=== PATIENT | female | born 1970 | race Caucasian/White ===

== ENCOUNTER 2018-03-25 15:21 | Inpatient (IN) | payer OTHER ==
[~2018-03-25] VITALS: Ht 157.5 cm; Wt 66.2 kg
[~2018-03-25 15:21] MED LIST: ECO81 PO; GLU500 PO; LIPI10 PO; PRI20 PO; ZES10 PO
[2018-03-25 15:44] VITALS: Ht 157.5 cm; Wt 66.2 kg
[2018-03-25 18:03] LABS: UA SPECIFIC GRAVITY 1.025 (1.005-1.035); microscopic required? YES; urine erythrocyte 3+ (NEGATIVE)
[2018-03-25 18:22] LABS: CALCIUM 9.2 mg/dL (8.5-10.1); CARBON DIOXIDE 24.6 mmol/L (21-32); CREATININE SERUM 1.8 mg/dL (0.6-1.0); POTASSIUM SERUM 4.2 mmol/L (3.5-5.1)
[2018-03-25 18:26] LABS: BILIRUBIN TOTAL 0.5 mg/dL (0.20-1.00)
[2018-03-25 18:27] LABS: ALBUMIN 2.3 g/dL (3.4-5.0); TOTAL PROTEIN, SERUM 9.4 g/dL (6.4-8.2)
[2018-03-25 18:30] LABS: BASOPHIL % 0.1 % (0-2)
[2018-03-25 18:30] LABS: AMPHETAMINE QUAL UR POSITIVE (See below)
[2018-03-25 18:41] LABS: PLATELET COUNT 530 x10^3mcL (130-400)
[2018-03-25 19:25] LABS: MAGNESIUM 1.9 mg/dL (1.8-2.4); PHOSPHOROUS 5.4 mg/dL (2.5-4.9)
[2018-03-25 20:51] VITALS: BP 150/83
[2018-03-26 05:53] VITALS: BP 150/78
[2018-03-26 06:16] LABS: BASOPHIL % 0.8 % (0-2)
[2018-03-26 06:23] LABS: CARBON DIOXIDE 26.7 mmol/L (21-32); CREATININE SERUM 1.7 mg/dL (0.6-1.0); MAGNESIUM 1.9 mg/dL (1.8-2.4); PHOSPHOROUS 4.9 mg/dL (2.5-4.9); POTASSIUM SERUM 4.6 mmol/L (3.5-5.1)
[2018-03-26 07:45] LABS: PLATELET COUNT 447 x10^3mcL (130-400); RED CELL DISTRIBUTION WIDTH 17.5 % (11.5-14.5)
[2018-03-26 08:03] VITALS: BP 136/61
[2018-03-26 11:52] VITALS: BP 128/66
[2018-03-26 16:07] VITALS: BP 148/78
[2018-03-26 20:41] VITALS: BP 152/75
[2018-03-27 05:32] VITALS: BP 147/72
[2018-03-27 05:58] LABS: BASOPHIL % 0.6 % (0-2); PLATELET COUNT 392 x10^3mcL (130-400)
[2018-03-27 06:30] LABS: CALCIUM 7.9 mg/dL (8.5-10.1); CARBON DIOXIDE 22.8 mmol/L (21-32); CREATININE SERUM 1.7 mg/dL (0.6-1.0); PHOSPHOROUS 4.1 mg/dL (2.5-4.9); POTASSIUM SERUM 4.5 mmol/L (3.5-5.1)
[2018-03-27 06:41] LABS: RED CELL DISTRIBUTION WIDTH 17.6 % (11.5-14.5)
[2018-03-27 08:58] VITALS: BP 164/80
[2018-03-27 13:22] VITALS: BP 152/83
[2018-03-27] MEDS ORDERED: NOR5 PO (14:52)
[2018-03-27] MEDS ORDERED: ISOSORBIDE MONO30 MG PO (14:52)
[2018-03-27] MEDS ORDERED: ZESTRIL5 MG PO (14:53)
[2018-03-27] MEDS ORDERED: GLU500 PO (14:56)
[2018-03-27 15:05] VITALS: BP 152/83
[2018-03-27 16:02] VITALS: BP 119/59
== END 2018-03-27 16:21 | disposition home or self-care (01) | DRG 812 ==
LOC: ED 15:21 → DU 18:53
PROVIDERS: Emergency Medicine; ADMIT Family Medicine
DX: T43.621A Poisoning by amphetamines, accidental (unintentional), initial encounter (principal); I21.A1 Myocardial infarction type 2; N17.0 Acute kidney failure with tubular necrosis; E43 Unspecified severe protein-calorie malnutrition; G92 Toxic encephalopathy; K70.10 Alcoholic hepatitis without ascites; E83.39 Other disorders of phosphorus metabolism; I08.1 Rheumatic disorders of both mitral and tricuspid valves; E11.22 Type 2 diabetes mellitus with diabetic chronic kidney disease; I20.0 Unstable angina; F15.10 Other stimulant abuse, uncomplicated; F10.20 Alcohol dependence, uncomplicated; E78.00 Pure hypercholesterolemia, unspecified; E11.65 Type 2 diabetes mellitus with hyperglycemia; E87.1 Hypo-osmolality and hyponatremia; N18.3 Chronic kidney disease, stage 3 (moderate); E11.40 Type 2 diabetes mellitus with diabetic neuropathy, unspecified; E11.621 Type 2 diabetes mellitus with foot ulcer; L97.529 Non-pressure chronic ulcer of other part of left foot with unspecified severity; E11.51 Type 2 diabetes mellitus with diabetic peripheral angiopathy without gangrene; H54.40 Blindness, one eye, unspecified eye; E78.5 Hyperlipidemia, unspecified; F41.9 Anxiety disorder, unspecified; F32.9 Major depressive disorder, single episode, unspecified; G89.4 Chronic pain syndrome; I12.9 Hypertensive chronic kidney disease with stage 1 through stage 4 chronic kidney disease, or unspecified chronic kidney disease; F17.210 Nicotine dependence, cigarettes, uncomplicated; Z68.27 Body mass index [BMI] 27.0-27.9, adult; Y92.018 Other place in single-family (private) house as the place of occurrence of the external cause; Z79.84 Long term (current) use of oral hypoglycemic drugs; Z89.412 Acquired absence of left great toe; Z88.5 Allergy status to narcotic agent; Z90.49 Acquired absence of other specified parts of digestive tract; Z91.14 Patient's other noncompliance with medication regimen
CPT/HCPCS: 82962; 83880; 99406; A9500; G0480; J1650; J1885; J2060; J2405; J2765; J2785; J3490; J7030; Q0092

== ENCOUNTER 2018-07-16 22:44 | Inpatient (IN) | payer OTHER ==
[~2018-07-16] VITALS: Ht 157.5 cm; Wt 79.4 kg
[~2018-07-16 22:44] MED LIST changes: +ISOSORBIDE MONO30 MG PO; +NOR5 PO; +ZESTRIL5 MG PO
--- NOTE | 2018-07-16 23:02 | NUR ---
PATIENT WAS BROUGHT IN BY EMS WITH COMPLAINT OF SUDDEN ONSET OF SOB. PATIENT HAD LEFT FOOT AMPUTATION , IS IN REHAB AND IS ON ANTIBIOTIC TX FOR PNEUMONIA. HIATORY OF HTN AND DM. ELEVATED BP IN THE FIELD AND REPORT OF LOW SATURATION ON ROOM AIR. PATIENT SEE WITH 98% SATURATION ON 100% NRM. BLOOD PRESSURE IS HIGH. PATIENT EXPRESS SHE JUST NEED SOMETHING TO 'CALM" HER DOWN REPORTS SHE USUALLY NETTA ATIVAN. PATIENT SEEN IN NO ACUTE DISTRESS, IS CALM AND COOPERATIVE. PATIENT IS WAITING FOR MD EVALUATION.
[2018-07-16 23:58] LABS: CALCIUM 8.7 mg/dL (8.5-10.1); CARBON DIOXIDE 26.7 mmol/L (21-32); CREATININE SERUM 1.8 mg/dL (0.6-1.0)
[2018-07-17] VITALS (7 sets, daily range): BP systolic 115–162; BP diastolic 64–83
[2018-07-17 00:04] LABS: BASOPHIL % 0.8 % (0-2); BILIRUBIN TOTAL 0.7 mg/dL (0.20-1.00); PLATELET COUNT 314 x10^3mcL (130-400)
[2018-07-17 00:07] LABS: RED CELL DISTRIBUTION WIDTH 15.6 % (11.5-14.5)
[2018-07-17 00:14] LABS: TOTAL PROTEIN, SERUM 8.8 g/dL (6.4-8.2)
--- NOTE | 2018-07-17 01:37 | NUR ---
PATIENT MEDICATED WITH LASIX AND NITRO PASTE.
--- NOTE | 2018-07-17 01:38 | NUR ---
PATIENT ASKING FOR FOOD AND SOMETHING TO RELAX HER. OXYGEN DROP TO THE 80'S ON ROOM AIR.
--- NOTE | 2018-07-17 02:26 | NUR ---
PATIENT MEDICATED WITH LABETALOL, TENORMIN AND ATIVAN.
--- NOTE | 2018-07-17 02:28 | NUR ---
REPORT WAS GIVEN TO ARELIS.PATIENT WILL BE TRANSPORTED TO ROOM 220.
--- NOTE | 2018-07-17 02:47 | NUR ---
PT TRANSPORTED TO [facility] VIA [facility] ON CM BY SELENA CARRERO AND XOCHITL EMT. PT IN NAD
--- NOTE | 2018-07-17 03:00 | NUR ---
CALLED TO Pt'S ROOM DUE TO DESAT. SPO2 92% UPON MY ARRIVAL, RN INCREASED FLOW TO 15L ON N/C, RN STATES SHE RECEIVED Pt ON 4L N/C WITH Pt DESATURATING. Pt PLACED ON NRB AT THIS TIME, SPO2 94%. WILL MONITOR.
[2018-07-17 03:57] LABS: MAGNESIUM 1.9 mg/dL (1.8-2.4); PHOSPHOROUS 4.2 mg/dL (2.5-4.9)
[2018-07-17 03:59] LABS: CHOLESTEROL/HDL RATIO 2.2
--- NOTE | 2018-07-17 04:20 | NUR ---
RECEIVED PT FROM ED.ADMITTED WITH COMPLAINT OF SOB X1 DAY. A/O X4. KEPT COMFORTABLE IN BED. [address] VIA 100% NRM. SAT. 97%. LUNGS SOUNDS DIM. BILAT. SOB NOTED ON EXERTION. HOB ELEVATED. AFEBRILE AND VITAL SIGNS STABLE. PLACED ON TELE #9, READS SR, DENIES CP OR PRESSURE. S/P LT FOOT AMPUTATION, DONE JUNE 04, 2018 PER PT. STUMP DRY AND INTACT,HEALED, NO DRAINAGE NOTED. PICTURE TAKEN AND DOCUMENTED. ABD. SOFT, NON DISTENDED, BS ACTIVE, NO N/V NOTED. HL TO LT WRIST, INTACT AND PATENT. ORIENTED TO ROOM AND SURROUNDINGS. BED IN LOWEST POSITION. KEPT COMFORTABLE, CALL LIGHT WITHIN REACH. WILL CONTINUE TO MONITOR.
--- NOTE | 2018-07-17 06:08 | NUR ---
COMPLAINED OF LOWER BACK PAIN, DR BAUGH MADE AWARE, K- PAD ORDERED. K-PAD TO LOWER BACK ORDERED. AFEBRILE AND VITAL SIGNS STABLE. [address] VIA NRM, TO. WELL. NO ACUTE DISTRESS NOTED. IVF INTACT AND INFUSING ORDERED. SITE CLEAR. DUE MEDS GIVEN ORDERED, KYLE. WELL. KEPT COMFORTABLE. WILL CONTINUE TO MONITOR.
--- NOTE | 2018-07-17 06:40 | NUR ---
SHLOMO BERKOWITZ FOR ANXIETY. BOLTON CATH #16 CATH. INSERTED AND CONNECTED TO DRAINAGE BAG, YELLOW COLOR URINE NOTED. WILL CONTINUE TO MONITOR.
[2018-07-17 07:25] LABS: microscopic required? YES; urine erythrocyte 3+ (NEGATIVE)
[2018-07-17 07:37] LABS: AMPHETAMINE QUAL UR POSITIVE (See below)
--- NOTE | 2018-07-17 08:00 | NUR ---
ALERT AND ORIENTED. ON OXIMIZER 5L AND RT PROTOCOL. TELE # 9 NSR. LEFT PARTIAL FOOT AMP WITH DRY SCAB TO STUMP MARIIA. NO DRAINAGE NOTED. STERI STRIPS INTACT. ABLE TO TURN AND REPOSITION SELF IN BED. C/O CHRONIC BACK PAIN AND PAIN TO LEFT FOOT STUMP. WILL ADMIN PAIN MED ORDERED PRN. CALL LIGHT WITHIN REACH.
[2018-07-17 08:25] LABS: BASOPHIL % 0.4 % (0-2)
[2018-07-17 08:35] LABS: CALCIUM 9.8 mg/dL (8.5-10.1); CARBON DIOXIDE 19.1 mmol/L (21-32); CREATININE SERUM 2.1 mg/dL (0.6-1.0); POTASSIUM SERUM 5.1 mmol/L (3.5-5.1)
[2018-07-17 08:41] LABS: PLATELET COUNT 298 x10^3mcL (130-400); RED CELL DISTRIBUTION WIDTH 16.6 % (11.5-14.5)
--- NOTE | 2018-07-17 19:31 | NUR ---
RESTING QUIETLY. BREATHING FREELY ON RA. CONTINUES ON RT PROTOCOL,SOLUMEDROL AND ZOSYN IV. TELE # 9 NSR. VSS. CALL LIGHT WITHIN REACH.
--- NOTE | 2018-07-17 19:47 | NUR ---
RECEIVED PT FROM PREVIOUS SHIFT. AAO. TELE #9 SHOWING NSR. DENIES CP. DENIES PAIN. BREATHING E/U ON 4L NC, DENIES SOB. NO S/S ACUTE DISTRESS. IV SITE CDI, IVF INFUSING WELL, NO ERYTHEMA OR SWELLING. BOLTON CATHETER DRAINING CLEAR YELLOW URINE. CALL LIGHT WITHIN REACH. SAFETY MEASURES IN PLACE. WILL CONTINUE TO MONITOR.
--- NOTE | 2018-07-17 22:21 | NUR ---
PT SALINE-LOCKED AND TAKEN OFF UNIT FOR PROCEDURE.
--- NOTE | 2018-07-17 22:59 | NUR ---
PT BACK FROM PROCEDURE. NO S/S ACUTE DISTRESS. BREATHING E/U. RESTING IN BED COMFORTABLY. WILL CONTINUE TO MONITOR.
--- NOTE | 2018-07-18 00:12 | NUR ---
PT SCREAMING "I ACCIDENTALLY PULLED MY IV OUT IN MY SLEEP". IV TO L WRIST REMOVED, CATHETER IN PLACE. PT REFUSING TO HAVE ANOTHER PLACED AT THIS TIME. PT AGITATED AND REQUESTING BOLTON CATHETER TO BE REMOVED, PAGED DR. BAUGH.
--- NOTE | 2018-07-18 00:22 | NUR ---
WENT INTO PT ROOM TO REMOVE BOLTON CATHETER. PT REFUSED. SAYS "IN THE MORNING". ASKED PT IF OK TO REINSERT IV FOR MEDICATIONS AND ANTIBIOTICS, PT STILL REFUSES SAYS "NO! I DON'T PLAY AT NIGHT.". PT VERY AGITATED AND UNCOOPERATIVE WITH CARE AT THIS TIME. UNABLE TO REINSERT IV, REMOVE CATHETER, AND COLLECT INFLUENZA A/B SINCE PT UNWILLING COOPERATIVE. WILL CONTINUE TO MONITOR.
--- NOTE | 2018-07-18 01:50 | NUR ---
INFLUENZA A/B COLLECTED. BOLTON CATHETER REMOVED, 825CC OF CLEAR YELLOW URINE IN COLLECTION DRAINAGE BAG. PT TOLERATED WELL. NO C/O PAIN. NO S/S ACUTE DISTRESS. WILL CONTINUE TO MONITOR.
--- NOTE | 2018-07-18 05:38 | NUR ---
PT REFUSING ALL CARE AT THIS TIME. TOLD PT IMPORTANCE OF TREATMENT AND PURPOSE, PT STILL REFUSES. WHEN ATTEMPTING TO SCAN WRISTBAND FOR ACCUCHECK, PT PULLS ARM AWAY SAYS "NO.", "I DON'T WANT TO.". PT REFUSING IV INSERTION AND MEDICATIONS AT THIS TIME. CHARGE NURSE ZANDRA DUNLAP. WILL NOTIFY DR. BAUGH.
[2018-07-18 05:54] VITALS: BP 141/74
--- NOTE | 2018-07-18 06:14 | NUR ---
PT REFUSING MORNING LABS. DR. BAUGH AND DR. RIDLEY MADE AWARE.
--- NOTE | 2018-07-18 07:13 | NUR ---
BEDSIDE REPORT GIVEN TO MAGAN NGUYEN.
--- NOTE | 2018-07-18 07:33 | NUR ---
RECEIVED PATIENT WAS SLEEPING. BREATHING EVENLY. TELE#9; NSR; HR = 64. NO IV ACCESS. PATIENT REFUED ALL MEDS AND LABS AND ANY TREATMENT SINCE 6AM, WHICH DOCTORS WERE AWARE OF, PER REPORT OF NOC NURSE. LT FOOT AMPUTATED. CALL LIGHT IN REACH.
--- NOTE | 2018-07-18 08:18 | NUR ---
DR. YOUNG CAME TO SEE PATIENT. PATIENT REFUSED ANY EXAMINATIONS. STATED," IT'S TOO EARLY TO CHECK ME. I HAVE RIGHTS TO REFUSE TREATMENT NOW. IT'S A STATED LAW".
--- NOTE | 2018-07-18 09:51 | NUR ---
PATIENT REFUSED MEDS NOW. PATIENT REFUSED TO SCAN HER ARM BAND.
--- NOTE | 2018-07-18 11:28 | NUR ---
DR. URBINA WANTED TO CHECK PATIENT AND AWAKE UP PATIENT. PATIENT YELLED TO DR. URBINA AND SAID, "GET AWAY". PATIENT REFUSED MEDS AND TREATMENT. PATIENT REFUSED IV INSERTION. DR. URBINA AWARE OF.
--- NOTE | 2018-07-18 12:25 | NUR ---
BS = 503. PATIENT REFUSED REPEAT BS CHECK. 21 UNITS REGULAR INSULIN SQ GIVEN PER RISS. DR. RIDLEY NOTIFIED.
--- NOTE | 2018-07-18 12:30 | NUR ---
PATIENT WOKE UP AND WALKED TO BATHROOM ON LT HEEL STUMP. VOID VIA TOILET. ACCEPTED ORAL MEDS NOW. B/P = 171/77; P =66.
--- NOTE | 2018-07-18 13:00 | NUR ---
NEW IV INSERTED TO L HAND W/ 22G NEEDLE. C/O ANXIETY. ATIVAN 0.5MG PO GIVEN.
--- NOTE | 2018-07-18 13:37 | NUR ---
PATIENT REFUSED ECHO AT THIS TIME. WILL CHECK BACK.
[2018-07-18 14:01] VITALS: BP 171/77
[2018-07-18 17:40] VITALS: BP 139/68
--- NOTE | 2018-07-18 17:57 | NUR ---
SLEEPING MOSTLY. DENIED PAIN. HAD VOID X3 VIA BRP. IV TKO TO L HAND. ENDORSED CARE TO NOC NURSE.
--- NOTE | 2018-07-18 19:19 | NUR ---
PT RECIEVED FROM THE DAY SHIFT RN. DEE DEE IS CURRENTLY WITH THE PT AT THIS TIME. PT APPEARS TO BE AGITATED AND ANGRY AT THIS TIME. PT HAS BEEN YELLING FOR NURSE DOWN THE ESCOTO. SAFETY AND COMFORT MEASURES MAINTAINED, BED IN LOWEST POSITION, CALL LIGHT WITHIN REACH, WILL CONTINUE TO MONITOR AT THIS TIME.
[2018-07-18 21:06] VITALS: BP 136/66
--- NOTE | 2018-07-19 00:05 | NUR ---
PT IS RESTING IN BED WITH EYES CLOSED AT THIS TIME. NO S/S OF PAIN NOTED AT THIS TIME. IV INFUSING AND INTACT. SAFETY AND COMFORT MEASURES MAINTAINED, BED IN LOWEST POSITION, CALL LIGHT WITHIN REACH.
--- NOTE | 2018-07-19 03:40 | NUR ---
PT IS RESTING IN BED WITH EYES CLOSED AT THIS TIME. EARLIER IN SHIFT PT WAS AGITATED AND TEARFUL WHEN SPEAKING TO FAMILY ON THE PHONE. NO S/S OF PAIN NOTED AT THIS TIME. PT HAS BEEN AGITATED AND ANGRY AT TIMES. BUT CURRENTLY CALM AND COOEPRATIVE WITH CARE. IV INFUSING AND INTACT. SAFETY AND COMFORT MEASURES MAINTAINED, BED IN LOWEST POSITION, CALL LIGHT WITHIN REACH.
--- NOTE | 2018-07-19 05:11 | NUR ---
PT HAS SLEPT IN SHORT INTERVALS THROUGHOUT THE SHIFT. PT HAS BEEN ALERT AND ORIENTED X3, PT HAS BEEN AGITATED AND ANGRY AT TIMES. BUT IS CALM AND COOPERATIVE WITH CARE AT THIS TIME. PT IV IS INFUSING AND INTACT AT THIS TIME. NO ACUTE DISTRESS NOTE . NO S/S OF PAIN AT THIS TIME. SAFETY AND COMFORT MEASURES MAINTAINED, BED IN LOWEST POSITION, CALL LIGHT WITHIN REACH, WILL ENDORSE CONTINUITY OF CARE TO THE ONCOMING RN.
[2018-07-19 05:52] VITALS: BP 155/79
[2018-07-19 06:08] LABS: BASOPHIL % 0.1 % (0-2); PLATELET COUNT 314 x10^3mcL (130-400)
[2018-07-19 06:30] LABS: CALCIUM 8.3 mg/dL (8.5-10.1); CARBON DIOXIDE 19.9 mmol/L (21-32); CREATININE SERUM 2.8 mg/dL (0.6-1.0)
[2018-07-19 06:49] LABS: POTASSIUM SERUM 5.9 mmol/L (3.5-5.1)
--- NOTE | 2018-07-19 07:01 | NUR ---
AT 0648 RECEIVED CRITICAL RESULT- POTASIUM 5.9; BUN-82, PRINTED RESULT, HANDED OVER TO PRIMARY NURSE TO SHOW RESULT TO THE RESIDENT
--- NOTE | 2018-07-19 07:16 | NUR ---
RECEIVED REPORT FROM DIGNA CARRERO. PT SLEEPING COMFORTABLY IN BED. IV TO LT HAND IS PATENT AND INFUSING NS @ 10 ML/HR. NO REDNESS OR PAIN. TELE # [address] NO INDICATION OF CHEST PAIN. PT ON ROOM AIR. NO DISTRESS NOTED. ALL QUESTIONS AND CONCERNS ADDRESSED.
[2018-07-19 09:31] VITALS: BP 170/77
--- NOTE | 2018-07-19 10:14 | NUR ---
SPOKE WITH DR FAIRBANKS TO REQUEST D10 IVPB @250 ML/HR INSTEAD OF D50 DUE TO LACK OF D50. DR FAIRBANKS OK TO PROCEED.
--- NOTE | 2018-07-19 10:50 | NUR ---
IN TO ADMINISTER D10 IVPB AND HULUMIN 10 UNITS PER MD ORDER. PT SLEEPING COMFORTABLY IN BED.
[2018-07-19 12:30] VITALS: BP 133/60
[2018-07-19 13:02] LABS: CALCIUM 8.1 mg/dL (8.5-10.1); CARBON DIOXIDE 21.8 mmol/L (21-32); CREATININE SERUM 2.8 mg/dL (0.6-1.0)
[2018-07-19 13:27] LABS: POTASSIUM SERUM 5.7 mmol/L (3.5-5.1)
--- NOTE | 2018-07-19 13:28 | NUR ---
SPOKE WITH LOCATION ANALYST ZANE FOR OK TO SHOWER, CEPACOL, AND TO NOTIFY OF PT K+ 5.7 REDUCED FROM 5.9 AFTER D1 AND 10 UNITS INSULIN.
--- NOTE | 2018-07-19 14:37 | NUR ---
RECEIVED CALL FROM DR GE FOR STATUS UPDATE. DR GE ORDERED STRICT I&O, SODIUM BICARB TABLETS, BOLTON INITIATION, COLACE BID, BISACODYL NOW, H2O FLEET NOW, ALB TX NOW, AND REPEAT BNP @ 1700.
--- NOTE | 2018-07-19 15:45 | NUR ---
2 MINUTES AFTER ADMINISTRATTION OF FLEET ENEMA PT HAD 5 SMALL MARBLE SIZED BM AND URINATED 500 ML URINE.
--- NOTE | 2018-07-19 15:59 | NUR ---
SPOKE WITH DR GE. ORDERED THAT PT IV FLUIDS BE INCREASED AND 17 BMP BE CHANGED TO 1999.
--- NOTE | 2018-07-19 17:09 | NUR ---
IN TO CHECK BLOOD GLUCOSE. GLUCOSE IS 458 AND 470 ON RECHECK. LAN SPECIALIST ZANE NOTIFIED AND WILL ADMINISTER INSULIN.
--- NOTE | 2018-07-19 17:24 | NUR ---
SPOKE WITH DR GE TO NOTFY OF SMALL BM AND URINATION OF 500 ML. INQUIRED IF BOLTON IS STILL DESIRED. DR GE WOULD LIKE TO GO AHEAD WITH BOLTON ORDER, ALSO ORDERED 1L NS TO BE GIVEN X1 @ 50 ML/HR, AND DIET CHANGED TO RENAL.
[2018-07-19 17:28] VITALS: BP 132/51
--- NOTE | 2018-07-19 17:42 | NUR ---
PT RECEIVED A VISITOR CARRYING [employer]. NOTIFIED VISITOR THAT PATIENT IS NOT ALLOWED OUTSIDE FOOD PER DR ORDER. VISITOR VERBALIZED UNDERSTANDING.
--- NOTE | 2018-07-19 18:13 | NUR ---
BOLTON INITIATED PER MD ORDER. AREA CLEANED, LUBRICANT APPLIED, FLASH WAS SEEN, BALLOON FILLED WITH 10 ML STERILE WATER PROVIDED IN KIT, TUBING SECURED WITH STATLOCK TO RT THIGH, 350 ML CLEAR YELLOW URINE ELIMINATED.
--- NOTE | 2018-07-19 19:18 | NUR ---
RECEIVED PT FROM DAY SHIFT RN. PT IS AA&O X 4 AND ABLE TO FOLLOW COMMANDS. PT DENIES CHEST PAIN OR SOB AT THIS TIME ON 3L NC. PT IS ANXIOUS AT TIMES. THERE ARE NO USE OF ACCESSORY MUSCLES OR LABORED BREATHING ON ASSESSMENT. PT TOLERATING BOLTON WITH YELLOW URINE DRAINING. TELE MONITOR IS IN PLACE. SAFETY MEASURES ARE IN PLACE. CALL LIGHT IS WITHIN REACH. WILL CONTINUE TO MONITOR.
--- NOTE | 2018-07-19 19:28 | NUR ---
REPORT GIVEN TO KARAN CARRERO. PT SLEEPING COMFORTABLY IN BED. PT ON O2 3L NC. NO DISTRESS NOTED. IV TO LT HAND IS PATENT AND INFUSING NS @ 50 ML/HR. NO REDNESS OR PAIN. BOLTON IN PLACE DRAINING CLEAR YELLOW URINE. ALL QUESTIONS AND CONCERNS ADDRESSED. ENDORSED TO CALL DR GE WITH 20:00 BMP RESULTS.
--- NOTE | 2018-07-19 19:59 | NUR ---
ATIVAN GIVEN FOR ANXIETY WILL CONTINUE TO MONITOR.
[2018-07-19 20:25] LABS: CALCIUM 7.8 mg/dL (8.5-10.1); CARBON DIOXIDE 23.2 mmol/L (21-32); CREATININE SERUM 3.1 mg/dL (0.6-1.0); POTASSIUM SERUM 5.3 mmol/L (3.5-5.1)
--- NOTE | 2018-07-19 20:48 | NUR ---
SPOKE WITH DR EG AND INFORMED HIM OF ELEVATED POTASSIUM 5.3, LOW SODIUM 130, AND ELEVATED BUN. DR GE ORDER SODIUM RANDOM AND URINALYSIS. WILL CARRY OUT ORDERS.
[2018-07-19 21:53] VITALS: BP 119/45
[2018-07-19 22:07] LABS: microscopic required? YES; urine erythrocyte 3+ (NEGATIVE)
--- NOTE | 2018-07-19 22:09 | NUR ---
INFORMED BY RT PATIENT REFUSING BREATHING TREATMENT
--- NOTE | 2018-07-19 23:14 | NUR ---
SPOKE WITH DR GE REPORTED RESULTS OF UA AND SODIUM UA. ORDERS TO DC LASIX AND MONITOR PATIENT. WILL CARRY OUT ORDERS.
--- NOTE | 2018-07-20 05:14 | NUR ---
PT SLEPT IN SHORT INTERVALS THROUGHOUT THE NIGHT. COMPLAINTS OF PAIN IN AMPUTATION SIGHT. PT MEDICATED (SEE MAR). DENIES PAIN AT THIS TIME. NO SOB OR CHEST PAIN. NO SGINIFICANT CHANGES NOTED. BREATHING IS EVEN AND UNLABORED. SAFETY MEASURES ARE IN PLACE. CALL LIGHT IS WITHIN REACH. WILL ENDORSE TO THE DAY SHIFT RN.
[2018-07-20 05:57] VITALS: BP 134/56
[2018-07-20 07:13] LABS: PLATELET COUNT 294 x10^3mcL (130-400)
[2018-07-20 07:23] LABS: CALCIUM 7.7 mg/dL (8.5-10.1); CARBON DIOXIDE 23.3 mmol/L (21-32); CREATININE SERUM 2.7 mg/dL (0.6-1.0); PHOSPHOROUS 5.4 mg/dL (2.5-4.9); POTASSIUM SERUM 5.5 mmol/L (3.5-5.1)
[2018-07-20 07:35] LABS: BASOPHIL % 0 % (0-2); RED CELL DISTRIBUTION WIDTH 18.2 % (11.5-14.5)
[2018-07-20 08:00] VITALS: BP 155/71
--- NOTE | 2018-07-20 08:00 | NUR ---
PATIENT RECEIVED ASLEEP AND IN NO DISTRESS AT THIS TIME HER LUNGS ARE DIMINISHED BUT CLEAR AND SHE HAS BEEN ABLE TO TOLERATE DIET AND NO COMPLAINTS SOB AND NOTED THE STUMP TO THE LEFT LOWER EXTREMITY AND THE PATIENT HAS A FOOT AMPUTATION AND THE WOUND TO THE SITE IS DRY AND INTACT AT THIS TIME. PATIENT HAS IT UNCOVERED. PATIENT IS ANXIOUS AND AT TIMES EVEN [facility] STAFF. SHE HAS BEEN NOTED TO HAVE FREQUENT URINATION AND THE BOLTON WAS PLACE DAND SHE IS CALMER NOW. SHE WOULD YELL OUT ABOUT HAVING TO URINATE PRIOR. SHE DOES HAVE DIABETES OOC AND HAS BEEN ASKING FOR MORE FOOD AND HAS BEEN GETTING FOOD FROM VISITORS. REMINDED HER OF HER RESTRICTIONS. PATIENT AHS BEEN OOB AND NEEDS ASSIST TO GET TO THE RESTROOM. SHE HAS NOW REQUESTED ATIVAN. GAVE THAT AND HER OTHER MEDICATIONS ORDERED. PATIENT WANTS OATMEAL AND REQUETED FROM THE DIETARY. REMINDED ABOUT THE RESTRICTIONS SHE HAS ON HER DIET. PATIENT HAS LAST BLOOD SUGAR THIS AM AT 265 AND 9 UNITS WAS GIVEN. SHE HAS VITALS AT THIS TIME AT 98.2, 64, 20, 134/56, 97% ON ROOM AIR.
[2018-07-20 09:00] VITALS: BP 155/71
--- NOTE | 2018-07-20 09:51 | NUR ---
VERY LIMITED ECHOCARDIOGRAM DONE-PATIENT UNCOOPERATIVE
--- NOTE | 2018-07-20 12:53 | NUR ---
BLOOD SUGAR AT THIS TIME AT 207 AND GAVE 3 UNITS OF REGULAR ORDERED.
--- NOTE | 2018-07-20 12:53 | NUR ---
BLOOD SUGAR ELEVATED AND GAVE 15 UNIT OF REGULAR FOR BLOOD SUGAR OF 371 AND LISA LCONTINUE TO MONITOR.
[2018-07-20 13:13] VITALS: BP 143/62
--- NOTE | 2018-07-20 13:50 | NUR ---
SLEEPING ON AND OFF AND AGRAVATED DUE TO LESS ON HER TRAY. WHILE FAMILY WAS THERE THE STAFF INDICATED THE IMPORTANCE OF LOWER THE CARBOHYDRATE INTAKE OF FOOD HER SUGAR IS REMAINING ELEVATED. SUSPECT THE FAMILY MAY BE BRINGING IN SNACKS THE PATIENT SHOULD NOT HAVE PER HER DIET. PATIENT IS CRYING AND CARRYING ON ABOUT SHE CANT FEEL FULL AND NEEDS MORE FOOD. ADVISED HER AGAIN ABOUT THE COSTS OF NOT BEING COMPLIANT WITH HER DIET AND FLUIDS. SHE THOUGH JUST GET ANGRY. SHE HAS COMPLAINTED OF ON AND OFF THROAT SORENESS. OFFERED CEPACOL ORDERED. WILL CONTINUE TO MONITOR INDICATED.
[2018-07-20 17:18] VITALS: BP 134/55
--- NOTE | 2018-07-20 17:54 | NUR ---
PATIENT HAD SEVERAKL SOFT STOOLS AND SHE HAD BEEN CLEANSED AND THEN HAD THREE ALMOST ONE RIGHT AFTER ANOTHER. SHE WAS SCREAMING FOR ASSISTANCE EVEN THOUGH THE STAFF WAS STANDING AT BEDSIDE ATTEMPTING TO ASSIST HER IN THE PROCESS. SHE HAD TANGLED HERSELF UP PREVIOUSLY IN HER IV, NASAL CANNULA, BOLTON WELL THE BEDDING. AFTER UNTANGLING THE PATIENT AND WASTING A IVPB DUE TO DISLODGEMENT PATIENT WAS SETTLED AND A NEW PIGGYBACK WAS PLACED. INFUSING THE ZOSYN AND SO FAR NO ADVERSE REACTION NOTED. WILL CONTINUE TO MONITOR. PATIENT HAD BLOOD SUGAR IN THE 260'S AND 3 UNITS WAS GIVEN. WILL CONTINUE TO MONITOR INDICATED.
--- NOTE | 2018-07-20 19:15 | NUR ---
RECEIVED PT FROM DAY SHIFT RN. PT IS AA&O X4 AND ABLE TO FOLLOW SIMPLE COMMANDS. PT CURRENTLY RESTING IN BED AND DENIES CHEST PAIN OR SHORTNESS OF BREATH ON O2 NASAL CANNULA. PT TOLERATING WELL. THERE ARE NO USE OF ACCESSORY MUSCLES OR LABORED BREATHING ON ASSESSMENT. TELE MONITOR IS IN PLACE. SAFETY MEASURES ARE IN PLACE. CALL LIGHT IS WITHIN REACH. WILL CONTINUE TO MONITOR.
[2018-07-20 20:56] VITALS: BP 142/76
--- NOTE | 2018-07-20 22:09 | NUR ---
DILAUDID PO GIVEN FOR 9/10 PAIN IN AMPUTATION AREA
--- NOTE | 2018-07-21 05:10 | NUR ---
PT SLEPT IN SHORT INTERVALS THROUGHOUT THE NIGHT. NO COMPLAINTS OF CHEST PAIN OR SHORTNESS OF BREATH. PT CURRENTLY RESTING IN BED WITH EYES CLOSED . NO DISTRESS NOTED. NO SIGNIFICANT CHANGES NOTED. WILL ENDORSE TO DAY SHIFT RN.
[2018-07-21 05:16] VITALS: BP 156/65
[2018-07-21 07:34] LABS: BASOPHIL % 0.1 % (0-2); CALCIUM 7.6 mg/dL (8.5-10.1); CARBON DIOXIDE 22.8 mmol/L (21-32); CREATININE SERUM 2.2 mg/dL (0.6-1.0); PLATELET COUNT 331 x10^3mcL (130-400); POTASSIUM SERUM 4.7 mmol/L (3.5-5.1)
--- NOTE | 2018-07-21 07:35 | NUR ---
PT IS AAOX4. DENIES H/A OR DIZZINESS. TELE [address] READING NSR HR 61. PT HAS MILD SOB WITH LUNG SOUNDS DIMINISHED AND EXPIRATORY WHEEZED NOTED. PT IS ON 02 3LPM N/C. ABDOMEN SOFT, NONTENDER, ROUND, NONDISTENDED. BOWEL SOUNDS ACTIVE. DENIES N/V. PT HAS LEFT GOOT PARTIAL AMPUTATION WITH 7X1 CM SCAB AT INCISION SITE, MARIIA. NO S/S OF INFECTION NOTED. PT HAS RLE +1 PITTING EDEMA. IV CATH TO N/S LOCKED. SITE WNL. NO S/S OF INFECTION OR INFILTRATION. CALL PT DENIES PAIN AT THIS TIME. CALL LIGHT WITHIN REACH. BED ALARM ON.
[2018-07-21 08:02] LABS: RED CELL DISTRIBUTION WIDTH 17.7 % (11.5-14.5)
[2018-07-21 09:34] VITALS: BP 172/86
--- NOTE | 2018-07-21 10:02 | NUR ---
DUE MEDS GIVEN. HR 63, BP 177/86. PT DENIE H/A OR DIZZINESS. DENIES PAIN AT THIS TIME. PT NOTED WITH SOB AND EXPIRATORY WHEEZE. REQUESTED R/T FOR BREATHING TX. PT REFUSED BREATHING TREATMENT. WITH NO EXCUSE OFFERED. EDUCATED PT AND EXPLAINED RISK AND BENEFITS 3X. PT STILL REFUSED TX. PT EDUCATED TO SIT UP IN BED TO ACCOMODATE BREATHING. PT REFUSED. WILL CONTINUE TO MONITOR. CALL LIGHT WITHIN REACH.
--- NOTE | 2018-07-21 13:19 | NUR ---
ATIVAN 0.5 MG PO GIVEN FOR ANXIETY. PT WAS VISITING WITH FAMILY WHEN SHE STARTED TO SCREAM AT THEM AND TELL THEM TO LEAVE HER ALONE. PT REQUESTED ATIVAN AFTER THE INCIDENT. FAMILY LEFT ROOM, TV WAS TURNED OFF AND BLINDS WERE CLOSED. FLUIDS ENCOURAGED. CALL LIGHT WITHIN REACH.
[2018-07-21 13:54] VITALS: BP 156/68
--- NOTE | 2018-07-21 14:50 | NUR ---
PT IS RESTING IN BED BUT EASILY AROUSABLE. DUE MED GIVEN. R/T STATED PT WOULD ONLY TAKE HALF OF HER BREATHING TX. PT HAS AUDIBLE EXPIRATORY WHEEZE AT THIS TIME. PT REFUSED BREATHING TX. O2 SAT 95% ON 3 L N/C. WILL CONTINUE TO MONITOR.
[2018-07-21 16:54] VITALS: BP 122/74
--- NOTE | 2018-07-21 17:48 | NUR ---
PT SITTING UP AT BEDSIDE EATING DINNER. DUE MED GIVEN AND FLUIDS REPLENISHED. DENIES PAIN. RESP EVEN AND UNLABORED. TOLERATATING O2 3LPM N/C. CALL LIGHT WITHIN REACH.
--- NOTE | 2018-07-21 18:53 | NUR ---
PT IS AAOX4. RESP EVEN AND UNLABORED, SHALLOW WITH EXPIRATORY WHEEZE. PT ON 02 N/C AT 3 LPM. IV CATH N/S LOCKED TO . SITE WNL. NO S/S OF INFECTION NOTED. BOLTON CATH IN PLACE DRAINING CLEAR YELLOW URINE, PATENT. PT DENIES PAIN AT THIS TIME. CALL LIGHT WITHIN REACH. WILL ENDORSE ALL CARE TO NOC MAGAN.
[2018-07-21 19:15] VITALS: BP 165/86
--- NOTE | 2018-07-21 19:20 | NUR ---
RECEIVED PT IN BED ASLEEP BUT EASILY AROUSABLE.NO DISTRESS NOTED.DENIES PAIN AT THIS TIME. 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 IV SITE PATENT AND INTACT. BED IN LOWEST POSITION,CALL LIGHT WITHIN REACH. WILL CONTINUE TO MONITOR.
--- NOTE | 2018-07-21 21:05 | NUR ---
PT C/O BACK PAIN 10/04. MEDICATED DILAUDID PO ORDERED. WILL CONTINUE TO MONITOR.
--- NOTE | 2018-07-22 03:21 | NUR ---
PT CALLED ASKING FOR ASSISTANCE.LASER BEAM COLOR SCANNER OPERATOR WENT RIGHT AWAY TO CHECK ON HER AND HEARD A LOUD NOISE AND FOUND PT ON THE FLOOR,FACE DOWN AND LAYING ON HER STOMACH.SOME BLEEDING NOTED FROM HER LIPS. ASSESSMENT DONE BP: 142/86, HR: 85. DENIES GOLDSTEIN AND DIZZINESS. NO VOMITING. POSITIVE PERLLA. NO CHANGE IN LOC.PT VERBALLY ABUSIVE TOWARDS STAFF AND CALLING NAMES.ALLOWED TO CALM DOWN.ASSISTED TO SITTING POSITION.ABLE TO MOVE ALL EXTREMITIES WITHOUT LIMITATIONS AND ASSISTED BACK TO BED.ALLOWED NURSE TO CLEAN HER UP AND APPLY COLD COMPRESSED ON HER LIPS.ABLE TO STOP BLEEDING.NOTED A VERY SMALL CUT ON HER UPPER LEFT SIDE ON HER LIP.ASKED PT WHAT HAPPEN.PT STATED" I ATTEMPTED TO GET OUT THE BED AND I LOST MY BALANCED" DR. BAUGH WENT INTO THE AND ASSESSED THE PT WITH ORDERS GIVEN.CHARGE NURSE AND BARROW WORKER HELPER VANESSA MADE AWARE.
--- NOTE | 2018-07-22 04:21 | NUR ---
PT C/O PAIN ON HER LEG.MEDICATED DILAUDED 2MG PO ORDERED. WILL CONTINUE TO MONITOR.
--- NOTE | 2018-07-22 05:05 | NUR ---
PT ASLEEP BUT AROUSABLE.NO DISTRESS NOTED. NO S/S OF PAIN. BED IN LOWEST POSITION,CALL LIGHT WITHIN REACH.BED ALARM ON. WILL CONTINUE TO MONITOR.
[2018-07-22 06:31] LABS: PLATELET COUNT 355 x10^3mcL (130-400)
[2018-07-22 06:41] VITALS: BP 164/75
[2018-07-22 06:41] LABS: BASOPHIL % 0 % (0-2); RED CELL DISTRIBUTION WIDTH 17.7 % (11.5-14.5)
[2018-07-22 06:58] LABS: CALCIUM 7.6 mg/dL (8.5-10.1); CARBON DIOXIDE 22.4 mmol/L (21-32); CREATININE SERUM 2.2 mg/dL (0.6-1.0); MAGNESIUM 1.9 mg/dL (1.8-2.4); POTASSIUM SERUM 5.2 mmol/L (3.5-5.1)
--- NOTE | 2018-07-22 07:32 | NUR ---
CARE ENDORSED TO DAY NURSE VICENTE.
--- NOTE | 2018-07-22 07:38 | NUR ---
RECIEVED PT FROM NIGHT NURSE. PT IS LAYING DOWN IN BED WITH HOB UP RESTING. RESPIRATIONS EVEN AND UNLABORED ON 3L NC. IV SITE PATENT WITH NO SIGNS OF ERYTHEMA OR SWELLING. BED IN LOWEST POSITION. BED ALARM IS ON, PT TOLD TO USE CALL LIGHT IF NEEDING TO GET OUT OF BED, PT VERBALIZED UNDERSTANDING. CALL LIGHT WITHIN REACH. WILL CONTINUE TO MONITOR.
--- NOTE | 2018-07-22 08:22 | NUR ---
PT TAKEN DOWN FOR CT, ACCOMPANIED BY NURSE
--- NOTE | 2018-07-22 08:30 | NUR ---
PT RETURNED FROM CT
[2018-07-22 09:38] VITALS: BP 181/79
--- NOTE | 2018-07-22 13:10 | NUR ---
Initial Nutrition Assessment: Dx: Early Respiratoy Failure, CHF PMHx: R eye blind, HTN, DM PSHx: L foot Amputation, appendectomy Labs: Na 133L, BG 337H, BUN 47H, Cre 2.1H, Ca 7.6L, Phos 5.4H, HbA1c 8.7H Meds: Ativan, Colace, Glucotrol, Humulin, Lantus, Solu-medrol, Zofran Diet: Renal diet x 3 days PO Intake: 80-100% of meals x 2 days Ht: 5'2 Wt: 175 lb, 79 kg BMI: 32 kg/m2 (Obese Class I) Bed scale: 163.3 lb IBW: 110 lb, 50 kg; Adj IBW: Obesity: 126 lb, 57 kg, Amputaion: 108 lb, 49 kg %IBW: 159 UBW: unknown Age: 48 yrs old/ Female Food Allergies: unknown Skin: dry stump on L foot. Raymundo: 16 Edema: none GI: Last BM: 07/21/18 Pt has been tolerating diet well, had an episode of fall this morning per RN notes, +very small cut on upper left side of her lip. Per provider's consultation notes, pt w/ HARJIT on CKD. Pt seen sleeping in bed at time of RD visit. RD attempted to wake pt up, but pt continued to sleep. RD was not able to s/w RN during rounds, and RN was unreachable via extension number. All information were gathered from EMR. Problem with: N/V/D/C: no Problems with: Chewing: Swallowing: Current appetite: good Recent wt change: unknown %wt change: n/a Vitamin/Supplement use: unknown Special diet at home: Diabetic Physical activity: unknown Nutrition education was not appropriate at this time. Food-drug interactions: none at this time. Estimated Nutritional Needs Based on adjusted body weight 57 kg Energy: 2297-8463 kcal/d (25-30 kcal/kg for maintenance) Protein: 34-46 g/d (.6-.8 g/kg- for Renal Dz pre-dialysis) Fluid: per doctor (Renal Dz) Nutrition Diagnosis Altered nutrition related labs r/t endocrine dysfunction and behavioral factors AEB elevated BG and HbA1c lab values and provider's report of pt's medical non-compliance. Intervention 1. Recommend adding CCHO to current Renal diet. Monitor/Evaluate Goal: PO intake at least 75% of estimated needs Monitor: PO intake, Labs, GI function F/U in 3-5 days as moderate risk 07/25-07/27
--- NOTE | 2018-07-22 13:10 | NUR ---
1. Recommend adding CCHO to current Renal diet.
--- NOTE | 2018-07-22 16:15 | NUR ---
BLOOD FOUND OF LOWER ABD. CLEANED AREA AND SMALL AREA BLEEDING TO LOWER ABD, COVERED WITH BANDAID. WILL CONTINUE TO MONITOR.
--- NOTE | 2018-07-22 16:15 | NUR ---
PT AGITATED AND REQUESTING SNACKS, PT STAYING, "I'M STARVING." CHECKED PT BLOOD SUGAR AND IS 395. PT ALSO REQUESTING PAIN MEDICATION AND ATIVAN. PT ALSO REQUESTING TO BE ABLE TO HAVE BENADRYL AT BEDTIME IN ORDER TO BE ABLE TO SLEEP. WILL NOTIFY DR PACHECO.
--- NOTE | 2018-07-22 16:53 | NUR ---
NOTIFIED DR. PACHECO OF PT WISHES FOR BENADRYL WELL THE WANT FOR SNACKS. DR. PACHECO RECOMMEND BENADRYL 25MG TO BE GIVEN AT NIGHT PRN. DR. PACHECO SAID OKAY TO GIVE ANOTHER DOSE OF 25 MG, TOTAL 50 MG, IF PT NEEDS IT TO SLEEP. DR. PACHECO STATED NO SNACKS BECAUSE OF THE HIGH BLOOD SUGAR. WILL CONTINUE TO MONITOR.
[2018-07-22 17:02] VITALS: BP 121/64
--- NOTE | 2018-07-22 17:56 | NUR ---
PT IS SITTING UP IN BED AND LOOKS TO BE IN NO ACUTE DISTRESS AT THIS TIME. BOYFRIEND AT BEDSIDE TALKING WITH PT. BOYFRIEND AND PT ASKING ABOUT SERVICES TO THE HOME THAT PROVIDE FOOD FOR THE PT. BED IN LOWEST POSITION. CALL LIGHT WITHIN REACH. WILL NOTIFY MEDICAL MANAGEMENT TRAINER OF PT REQUEST FOR HOME FOOD SERVICES. WILL CONTINUE TO MONITOR.
--- NOTE | 2018-07-22 18:42 | NUR ---
PT IS SITTING UP IN BED TALKING WITH FAMILY MEMBERS. PT LOOKS TO BE IN NO ACUTE DISTRESS AT THIS TIME. RESPRIATIONS EVEN AND UNLABORED ON 2L NC. BOLTON CATHETER CARE DONE AND CATHETER DRAINING CLEAR YELLOW URINE. IV SITE PATENT WITH NO SIGNS OF ERYTHEMA OR SWELLING. PT REQUESTING TO SHOWER. BED IN LOWEST POSITION, CALL LIGHT WITHIN REACH. WILL ENDORSE TO ONCOMING SHIFT.
--- NOTE | 2018-07-22 19:46 | NUR ---
RECEIVED PATIENT FROM AM RN. PATIENT QUIETLY RESTING IN BED AT THIS TIME WITH FAMILY BY BEDSIDE. PLACED CALL LIGHT WITHIN REACH AND BED ALARM ON FOR PATIENT SAFETY.
[2018-07-22 20:40] VITALS: BP 165/74
--- NOTE | 2018-07-22 20:53 | NUR ---
SCHEDULED MEDICATIONS ADMINISTERED. EDUCATED PATIENT REGARDING IMPORTANCE OF BLOOD SUGAR MAINTAINENCE. PATIENT VERBALIZES UNDERSTANDING BUT NON COMPLIANT WITH MEDICAL REGIME. NO SWALLOWING DIFFICULTY NOTED. CALL LIGHT WITHIN REACH.
--- NOTE | 2018-07-22 21:24 | NUR ---
PATIENT HAD BED BATH WITH ASSISTANCE FROM AALIYAH WILCOX. PATIENT WISHED TO TAKE A SHOWER BUT AT HIGH FALL RISK SO EXPLAINED TO HAVE BED BATH WITH ASSITANCE TO PREVENT FURTHER INJURY.
--- NOTE | 2018-07-22 22:35 | NUR ---
PATIENT QUIETLY SLEEPING IN BED AT THIS TIME. NO S/SX OF DISTRESS NOTED. LAYING ON LEFT SIDE. IV SITE LEFT HAND SALINE LOCK, NO INFILTRATION NOTED. BOLTON CATHETER IN PLACE DRAINING YELLOW CLEAR COLORED URINE TO GRAVITY. BREATHING EVEN AND UNLABORED. CALL LIGHT WITHIN REACH, BED ALARM ON FOR PATIENT SAFETY.
--- NOTE | 2018-07-22 23:03 | NUR ---
PATIENT MOANING AND SCREAMING AT THIS TIME. WHEN ASKED WHAT'S BOTHERING PATIENT. PATIENT STATES THAT SHE IS IN PAIN. WHEN ASKED PATIENT TO DESCRIBE HER PAIN SHE REFUSES AND STATES THAT SHE CAN'T DESCRIBE HER PAIN. NO PRN PAIN MEDICATION AVAILABLE AT THIS TIME. PAGED DR. BAUGH FOR ADDITIONAL PAIN MEDICATION. PATIENT ALSO PULLED IV TO LEFT HAND OUT.
--- NOTE | 2018-07-22 23:16 | NUR ---
PATIENT NOW QUIETLY SLEEPING.
--- NOTE | 2018-07-22 23:37 | NUR ---
PATIENT NOW REQUESTING FOR HER ATIVAN AND WHEN TOLD THAT HER ATIVAN WASN'T DUE SHE BECAME UPSET AND ASKED WHEN HER ATIVAN IS DUE. WHEN ASKED IF SHE STILL WANTED HER DILAUDID FOR HER COMPLAINTS OF PAIN, SHE STATES THAT THE DILAUDID DOESN'T HELP HER. WHEN ASKED WHAT SHE TAKES TO HELP HER WITH PAIN SINCE SHE HAS AN ALLERGY TO MORPHINE AND NORCO, SHE YELLS, "I'M NOT STUPID, I CAN TAKE TRAMADOL AND I DIDN'T TELL YOU TO TAKE MY DILAUDID AWAY.
--- NOTE | 2018-07-23 00:09 | NUR ---
INFORMED BY SWETA, COOK CHEF THAT PATIENT HAD 8 BEATS OF V-TACH. ASSESSED PATIENT, PATIENT DOES COMPLAIN OF SLIGHT SHORTNESS OF BREATH. VS TAKEN 99/71, HR 104 O2 SAT 96% ON ROOM AIR.
[2018-07-23 06:09] VITALS: BP 158/64
--- NOTE | 2018-07-23 06:14 | NUR ---
PATIENT CALLED STATING THAT HER STOMACH FEELS FUNNY, PATIENT STATED THAT SHE VOMITED ALL OVER THE FLOOR BY HER BED. WHEN CLEANING FLOOR, NO VOMIT NOTED. DR. BAUGH MADE AWARE.
[2018-07-23 06:41] LABS: BASOPHIL % 0.1 % (0-2); PLATELET COUNT 379 x10^3mcL (130-400)
[2018-07-23 06:42] LABS: CALCIUM 7.9 mg/dL (8.5-10.1); CARBON DIOXIDE 22.2 mmol/L (21-32); POTASSIUM SERUM 4.1 mmol/L (3.5-5.1)
[2018-07-23 06:51] LABS: RED CELL DISTRIBUTION WIDTH 17.3 % (11.5-14.5)
--- NOTE | 2018-07-23 07:25 | NUR ---
RECEIVED PT FROM GUITAR MAKER, SLEEPING THIS TIME. ASSESSSED AND DOCUMENTED. DENIES PAIN THIS TIME. SAFTEY PRECAUTIONS ARE IN PLACE. WILL MONITOR.
[2018-07-23 09:40] VITALS: BP 128/57
--- NOTE | 2018-07-23 13:26 | NUR ---
PT SAID SHE IS FEELING ANXIOUS. MEDICATED WITH ATIVAN PO ORDERED.
[2018-07-23 13:55] VITALS: BP 128/57
--- NOTE | 2018-07-23 14:00 | NUR ---
PT RESTING IN BED COMFORTABLY. DENIES ANY PAIN. STABLE.
--- NOTE | 2018-07-23 14:41 | NUR ---
PHYSICAL THERAPY NOTE ATTEMPTED FOR FOLLOW UP PHYSICAL THERAPY SESSIONS. PATIENT AGITATED AT THIS TIME AND REFUSED TO PARTICIPATE. SOCRATES CARRERO AWARE.
--- NOTE | 2018-07-23 16:00 | NUR ---
PT IS SLEEPING, STABLE.
[2018-07-23 18:05] VITALS: BP 100/42
--- NOTE | 2018-07-23 19:25 | NUR ---
PT RESTING IN BED COMFORTABLY, STABLE. GAVE REPORT TO ADVERTISING DIRECTOR NURSE.
--- NOTE | 2018-07-23 20:00 | NUR ---
Awake and verbally responsive. No respiratory distress noted on 02 2lpm via n/c. Denies pain. Denies n/v. Multiple requests. Easily gets agitated. Screams and yells when she wants something. Safety maintained. CAll light within reach.
[2018-07-23 20:27] VITALS: BP 104/56
--- NOTE | 2018-07-24 03:59 | NUR ---
Afebrile. No significant change in condition noted. On and off left foot stump pain, medicated with dilaudid p.o.as ordered. Would fall asleep after pain med. Would ask for crackers when awake and screams/yells when ask for something. Cont.on IV zosyn.
[2018-07-24 05:26] VITALS: BP 165/73
[2018-07-24 06:19] LABS: BASOPHIL % 0.1 % (0-2); PLATELET COUNT 350 x10^3mcL (130-400)
[2018-07-24 06:27] LABS: RED CELL DISTRIBUTION WIDTH 17.2 % (11.5-14.5)
[2018-07-24 06:47] LABS: CALCIUM 7.3 mg/dL (8.5-10.1); CREATININE SERUM 2.2 mg/dL (0.6-1.0); POTASSIUM SERUM 4.9 mmol/L (3.5-5.1)
--- NOTE | 2018-07-24 07:50 | NUR ---
RECEIVED PATIENT RESTING IN BED, NO ACUTE DISTRESS NOTED AT THIS TIME. PATIENT DENIES SOB, ON 2L NC. 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 EDUCATED PATIENT TO CALL FOR ASSISTANCE WHEN NEEDED, PATIENT UNDERSTANDS HOW TO USE CALL LIGHT. GENERALIZED WEAKNESS NOTED, LEFT FOOT AMPUTATED. NS IV INFUSING TO LFA AT 10ML/HR, IV SITE CDI & PATENT, NO S/S OF INFILTRATION. CALL LIGHT WITHIN REACH, BED IN LOW POSITION, WILL CONTINUE TO MONITOR FOR CHANGES.
--- NOTE | 2018-07-24 09:14 | NUR ---
PATIENT WAS C/O OF ANXIETY. EDUCATED PATIENT ON RELAXATION TECHNIQUES, AND DEEP BREATHING. MEDICATED PATIENT WITH ATIVAN PER PROTOCOL (SEE EMAR). WILL CONTINUE TO MONITOR FOR CHANGES, CALL LIGHT WITHIN REACH, BED IN LOW POSITION FOR SAFETY PRECAUTION.
[2018-07-24 09:23] VITALS: BP 154/74
--- NOTE | 2018-07-24 12:00 | NUR ---
PATIENT WAS SEEN CRYING WHEN ASKED WHATS WRONG, PATIENT STATED MY FAMILY JUST COMES TO ARGUE AND LEAVE. PATIENT BECAME A BIT MORE CALM WHEN LISTENING TO HER. WILL CONTINUE TO MONITOR THE PATIENT. CALL LIGHT WITHIN REACH, BED IN LOW POSITION.
[2018-07-24] MEDS ORDERED: LEVAQUIN750 MG PO (13:16)
[2018-07-24] MEDS ORDERED: PRE20 PO (13:19)
[2018-07-24] MEDS ORDERED: ECO81 PO (13:20)
[2018-07-24] MEDS ORDERED: COR6 PO (13:21)
[2018-07-24] MEDS ORDERED: APR25 PO (13:21)
[2018-07-24] MEDS ORDERED: AMARYL4 MG PO (13:27)
--- NOTE | 2018-07-24 13:40 | NUR ---
PATIENT HAD FINISHED HER ENTIRE PLATE AND HAD REQUESTED FOR ANOTHER PLATE. EDUCATED PATIENT ON HER DIET, PATIENT BEGAN TO CRY AND STATED "IM STARVING". PATIENT WAS UNCOMPLIANT WITH HER DIET. OFFERED HER A SNACK PATIENT WAS OKAY WITH A CRACKER. WILL CONTINUE TO MONITOR AND REINFORCE TEACHING.
--- NOTE | 2018-07-24 14:17 | NUR ---
PHYSICAL THERAPY DAILY NOTES CO-SIGN All documentation done by the Streetcar Repairer for 07/24/18 has been reviewed. I agree with the documentation. Reviewed/Co-Signed by: Lucy Lazar PT Documentation Done by:DANNY CHAHAL PTA FOR 07/24/18
--- NOTE | 2018-07-24 14:50 | NUR ---
PATIENT WAS C/O OF PAIN 10/04 TO LEFT LEG, MEDICATED PATIENT WITH DILAUDID PER PROTOCOL (SEE EMAR). EDUCATED PATIENT ON PAIN MANAGEMENT. WILL CONTINUE TO MONITOR PATIENT. CALL LIGHT WITHIN REACH, BED IN LOW POSITION FOR SAFETY PRECAUTION.
--- NOTE | 2018-07-24 15:00 | NUR ---
BOLTON CATHETER WAS DISCONTINUED BY RN STUDENT, YELLOW OUTPUT NOTED, 350ML.
[2018-07-24 15:17] VITALS: BP 152/68
--- NOTE | 2018-07-24 16:45 | NUR ---
PATIENT WAS D/C HOME WITH MOM AND BROTHER. PATIENT BROTHER STATED PATIENT CONCENTRATOR ARRIVED AT HOME. PATIENT LEFT WITH PORTABLE OXYGEN ON 2L NC. PATIENT AND BROTHER RECEIVED COPY OF D/C INSTRUCTIONS AND PRESCRIPTIONS, PATIENT AND FAMILY UNDERSTAND AND AGREE WITH D/C PLAN AND INSTRUCTIONS, INCLUDING MEDICATIONS AND F/U CARE WITH PCP AND SPECIALIST. ALL QUESTIONS AND CONCERNS ADDRESSED. PHOTOS WERE TAKEN OF PATIENT LLE SCAB, PATIENT REFUSED ANY OTHER PHOTOS, PATIENT JUST WANTED TO LEAVE. IV TO LFA REMOVED, CATH INTACT. ARMBANDS REMOVED. PATEINT TAKEN DOWN BY TEENAGE BABYSITTER VIA WHEELCHAIR.
[2018-07-25 04:13] LABS: CK-BB 0 % (0); CK-MB 0 % (0-3); CK-MM 100 % (97-100); MACRO TYPE 1 0 % (Not Observed); MACRO TYPE 2 0 % (Not Observed)
== END 2018-07-24 16:45 | disposition home health service (06) | DRG 190 ==
LOC: ED 22:44 → DU 07-17 01:39 → MU 07-21 12:27
PROVIDERS: Emergency Medicine; Internal Medicine; ADMIT General Practice
DX: I21.A1 Myocardial infarction type 2 (principal); J96.00 Acute respiratory failure, unspecified whether with hypoxia or hypercapnia; N17.0 Acute kidney failure with tubular necrosis; I13.0 Hypertensive heart and chronic kidney disease with heart failure and stage 1 through stage 4 chronic kidney disease, or unspecified chronic kidney disease; I50.43 Acute on chronic combined systolic (congestive) and diastolic (congestive) heart failure; I16.1 Hypertensive emergency; E88.81 Metabolic syndrome and other insulin resistance; E11.65 Type 2 diabetes mellitus with hyperglycemia; E11.51 Type 2 diabetes mellitus with diabetic peripheral angiopathy without gangrene; H54.40 Blindness, one eye, unspecified eye; J91.8 Pleural effusion in other conditions classified elsewhere; E11.21 Type 2 diabetes mellitus with diabetic nephropathy; E87.5 Hyperkalemia; E87.1 Hypo-osmolality and hyponatremia; F15.10 Other stimulant abuse, uncomplicated; E11.40 Type 2 diabetes mellitus with diabetic neuropathy, unspecified; N18.9 Chronic kidney disease, unspecified; E11.22 Type 2 diabetes mellitus with diabetic chronic kidney disease; E44.1 Mild protein-calorie malnutrition; Z89.432 Acquired absence of left foot; Z79.4 Long term (current) use of insulin; Z87.891 Personal history of nicotine dependence; Z79.84 Long term (current) use of oral hypoglycemic drugs; Z91.19 Patient's noncompliance with other medical treatment and regimen; Z88.6 Allergy status to analgesic agent; Z88.8 Allergy status to other drugs, medicaments and biological substances; Z87.01 Personal history of pneumonia (recurrent); Z90.49 Acquired absence of other specified parts of digestive tract; Z86.711 Personal history of pulmonary embolism
CPT/HCPCS: 78598; 82962; 83880; 85378; 87804; 94150; 97110-GP; 97530-GP; A9540; B4164; J1644; J1815; J1940; J2060; J2405; J2543; J2920; J2930; J3490; J7030; J7512; J7613; J7620; J7644; Q0092; Q0163

== ENCOUNTER 2018-07-31 22:08 | Inpatient (IN) | payer OTHER ==
[~2018-07-31] VITALS: Ht 157.5 cm; Wt 75.3 kg
[~2018-07-31 22:08] MED LIST changes: +AMARYL4 MG PO; +APR25 PO; +COR6 PO; +LEVAQUIN750 MG PO; +PRE20 PO
[2018-07-31 22:48] LABS: BASOPHIL % 0.2 % (0-2); PLATELET COUNT 349 x10^3mcL (130-400)
[2018-07-31 22:50] LABS: RED CELL DISTRIBUTION WIDTH 17.1 % (11.5-14.5)
[2018-07-31 23:22] LABS: BILIRUBIN TOTAL 0.41 mg/dL (0.20-1.00); CALCIUM 7.6 mg/dL (8.5-10.1); CARBON DIOXIDE 19.5 mmol/L (21-32); CREATININE SERUM 2.3 mg/dL (0.6-1.0); POTASSIUM SERUM 4.5 mmol/L (3.5-5.1); TOTAL PROTEIN, SERUM 6.5 g/dL (6.4-8.2)
[2018-07-31 23:24] LABS: ALBUMIN 2.5 g/dL (3.4-5.0)
[2018-08-01] MEDS ORDERED: SEN PO (01:55)
[2018-08-01] MEDS ORDERED: GOOD SENSE OMEP20 MG PO (01:56)
[2018-08-01] MEDS ORDERED: BASAGLAR K100 UNIT/1 SQ (01:56)
[2018-08-01] MEDS ORDERED: ONDANSETRON4 M3 PO (01:57)
[2018-08-01] MEDS ORDERED: APIDRA SOLOS100 U/ML SQ (01:58)
[2018-08-01 03:58] VITALS: BP 148/74
[2018-08-01 06:07] VITALS: BP 167/83
[2018-08-01 06:43] LABS: UA SPECIFIC GRAVITY 1.025 (1.005-1.035); microscopic required? YES; urine erythrocyte 3+ (NEGATIVE)
[2018-08-01 07:06] LABS: AMPHETAMINE QUAL UR NONE DETECTED (See below)
[2018-08-01 09:37] VITALS: BP 126/64
[2018-08-01 15:51] VITALS: Ht 157.5 cm; Wt 75.3 kg
[2018-08-01 17:03] VITALS: BP 120/55
[2018-08-01 21:46] VITALS: BP 185/84
[2018-08-02 06:23] VITALS: BP 179/74
[2018-08-02 07:49] LABS: CALCIUM 8.4 mg/dL (8.5-10.1); CARBON DIOXIDE 19.3 mmol/L (21-32); CREATININE SERUM 2.1 mg/dL (0.6-1.0)
[2018-08-02 08:29] VITALS: BP 197/89
[2018-08-02 09:01] LABS: BASOPHIL % 0.2 % (0-2); PLATELET COUNT 312 x10^3mcL (130-400); RED CELL DISTRIBUTION WIDTH 16.9 % (11.5-14.5)
[2018-08-02 13:55] VITALS: BP 197/89
== END 2018-08-02 15:06 | disposition home or self-care (01) ==
LOC: ED 22:08 → DU 08-01 01:54 → MU 08-01 01:54
PROVIDERS: Emergency Medicine; ADMIT Family Medicine
DX: K80.20 Calculus of gallbladder without cholecystitis without obstruction (principal); I21.A1 Myocardial infarction type 2; N17.0 Acute kidney failure with tubular necrosis; E43 Unspecified severe protein-calorie malnutrition; D72.829 Elevated white blood cell count, unspecified; F15.10 Other stimulant abuse, uncomplicated; E11.22 Type 2 diabetes mellitus with diabetic chronic kidney disease; E11.649 Type 2 diabetes mellitus with hypoglycemia without coma; F10.10 Alcohol abuse, uncomplicated; Y90.9 Presence of alcohol in blood, level not specified; I12.9 Hypertensive chronic kidney disease with stage 1 through stage 4 chronic kidney disease, or unspecified chronic kidney disease; N18.9 Chronic kidney disease, unspecified; Z89.432 Acquired absence of left foot; Z79.82 Long term (current) use of aspirin; Z79.84 Long term (current) use of oral hypoglycemic drugs; Z88.5 Allergy status to narcotic agent; Z88.6 Allergy status to analgesic agent; Z79.899 Other long term (current) drug therapy; Z87.891 Personal history of nicotine dependence; Z91.19 Patient's noncompliance with other medical treatment and regimen; Z68.29 Body mass index [BMI] 29.0-29.9, adult
CPT/HCPCS: 82962; 97530-GP; J1170; J1200; J1885; J2405; J2550; J3490; J7030; J7042; Q0092

== ENCOUNTER 2018-08-12 16:26 | Inpatient (IN) | payer OTHER ==
[~2018-08-12] VITALS: Ht 157.5 cm; Wt 72.0 kg
[~2018-08-12 16:26] MED LIST changes: +APIDRA SOLOS100 U/ML SQ; +BASAGLAR K100 UNIT/1 SQ; +GOOD SENSE OMEP20 MG PO; +ONDANSETRON4 M3 PO; +SEN PO
[2018-08-12 16:32] VITALS: Ht 157.5 cm; Wt 72.0 kg
--- NOTE | 2018-08-12 16:36 | NUR ---
PT TAKEN TO ED BED 7 AT THIS TIME FOR FURTHER MONITORING. EMT AT BEDSIDE FOR EKG.
--- NOTE | 2018-08-12 16:58 | NUR ---
PT WAS EXAMINED BY DR. BROWNING
--- NOTE | 2018-08-12 17:13 | NUR ---
US IS BEDSIDE TO DO US.
[2018-08-12 17:24] LABS: BASOPHIL % 0.6 % (0-2); PLATELET COUNT 321 x10^3mcL (130-400)
[2018-08-12 17:27] LABS: RED CELL DISTRIBUTION WIDTH 16.6 % (11.5-14.5)
[2018-08-12 17:29] LABS: CALCIUM 8.2 mg/dL (8.5-10.1); CARBON DIOXIDE 26.7 mmol/L (21-32); CREATININE SERUM 2.1 mg/dL (0.6-1.0); POTASSIUM SERUM 4.4 mmol/L (3.5-5.1)
[2018-08-12 17:34] LABS: ALBUMIN 2.3 g/dL (3.4-5.0); BILIRUBIN TOTAL 0.8 mg/dL (0.20-1.00); TOTAL PROTEIN, SERUM 6.8 g/dL (6.4-8.2)
[2018-08-12 20:00] VITALS: BP 150/70
[2018-08-12 20:09] LABS: MAGNESIUM 1.5 mg/dL (1.8-2.4); PHOSPHOROUS 3.7 mg/dL (2.5-4.9)
[2018-08-12 20:12] LABS: CHOLESTEROL/HDL RATIO 2.3
[2018-08-12 20:16] LABS: FREE T4 1.16 ng/dL (0.76-1.46); FREE THYROXINE INDEX 2.3 ug/dL (1.4-4.5); T4(THYROXINE) 6.5 ug/dL (4.7-13.3)
--- NOTE | 2018-08-12 20:22 | NUR ---
US AT BEDSIDE.
[2018-08-12] MEDS ORDERED: HYDRALAZINE HCL25 MG PO (20:24)
[2018-08-12] MEDS ORDERED: ISOSORBIDE MONO60 MG PO (20:24)
[2018-08-12] MEDS ORDERED: NATURAL SENNA8.6 MG PO (20:24)
[2018-08-12] MEDS ORDERED: ATORVASTATIN CA40 M1 PO (20:25)
--- NOTE | 2018-08-12 20:35 | NUR ---
REPORT GIVEN TO PRISCILLA CARRERO TO ASSUME CARE OF PT.
--- NOTE | 2018-08-12 21:30 | NUR ---
RECEIVED PT FROM ED VIA MAXIME ACCOMPANIED BY A NURSE AND FAMILY.PT CAME DUE TO SOB.DENIES ANY PAIN AT THIS TIME. 02SAT 92% 5L NC, BRATHING EVEN AND UNLABORED. NO ACUTE RESPIRATORY DISTRESS NOTED. PT CALM AND COOPERATIVE. NOTICED L FT AMPUTATION WRAPPED WITH BANDAGE.SKIN ARE INTACT AND DRY. TELE#11 NSR. NO CP NOTED.ABDOMEN SOFT AND ROUND.IV SITE PATENT AND INTACT.BED IN LOWEST POSITION,CALL LIGHT WITHIN REACH. WILL CONTINUE TO MONITOR.
[2018-08-12 22:01] LABS: T3 TOTAL 1.03 ng/mL
[2018-08-12 22:33] VITALS: BP 137/71
--- NOTE | 2018-08-12 23:30 | NUR ---
INSERTED BOLTON CATH. DRAINING TO GRAVITY WITH YELLOW URINE.
[2018-08-13 00:04] LABS: microscopic required? YES; urine erythrocyte 2+ (NEGATIVE)
[2018-08-13 00:10] LABS: AMPHETAMINE QUAL UR POSITIVE (See below)
--- NOTE | 2018-08-13 02:17 | NUR ---
TROPONIN 0.277. DR SOLANO MADE AWARE.
[2018-08-13 05:39] VITALS: BP 130/65
[2018-08-13 06:38] LABS: BASOPHIL % 0.6 % (0-2); PLATELET COUNT 307 x10^3mcL (130-400)
[2018-08-13 07:15] LABS: RED CELL DISTRIBUTION WIDTH 16.8 % (11.5-14.5)
[2018-08-13 07:17] LABS: CARBON DIOXIDE 25.7 mmol/L (21-32); CREATININE SERUM 2.2 mg/dL (0.6-1.0); MAGNESIUM 1.8 mg/dL (1.8-2.4); POTASSIUM SERUM 4.5 mmol/L (3.5-5.1)
--- NOTE | 2018-08-13 07:28 | NUR ---
CARE ENDORSED TO DAY NURSE JESI.
--- NOTE | 2018-08-13 07:47 | NUR ---
RECEIVED PATIENT FROM MAGAN WELLS. PATIENT SEEN IN BED, SLEEPING AT THIS TIME. NO SIGNS OF PAIN, OR RESPIRATORY DISTRESS. LAB CALLED AND NOTIFIED THAT PATIENT H/H IS 6.9. WILL NOTIFY DR SPAULDING. CALL LIGHT IN REACH AT THIS TIME.
[2018-08-13 08:05] VITALS: BP 107/65
--- NOTE | 2018-08-13 08:16 | NUR ---
PATIENT STATES SHE IS "FEELING LIKE SHE CAN'T BREATH". RT IN ROOM WITH PATIENT AT THIS TIME FOR TREATMENT. PATIENT ON O2 NC @ 5 LPM W SAT OF 92%. INFORMED PATIENT OF TREATMENT PURPOSE AND PLAN OF CARE FOR TODAY, INCLUDING LIKELY BLOOD TRANSFUSION. WILL CONTINUE TO MONITOR.
[2018-08-13 10:00] VITALS: BP 115/70
--- NOTE | 2018-08-13 10:30 | NUR ---
DR SPAULDING & DR FAIRBANKS IN TO SPEAK WITH PATIENT ABOUT PLAN OF CARE, DR SPAULDING WILL ORDER BLOOD TRANSFUSION TODAY. PATIENT VERBALIZES UNDERSTANDING, CALL LIGHT IN REACH.
--- NOTE | 2018-08-13 10:53 | NUR ---
PATIENT HAD X1 EPISODE OF VOMITTING. PRN ZOFRAN 4 MG IVP ADMINISTERED. PATIENT IN BED RESTING. CALL LIGHT IN REACH.
[2018-08-13 11:40] VITALS: BP 133/61
--- NOTE | 2018-08-13 13:10 | NUR ---
SPOKE WITH PATIENT MOTHER ABOUT PLAN OF CARE. PATIENT CURRENTLY IN BED RESTING, STILL STATES SHE IS FEELING NAUSEA BUT NO MORE EPISODES OF VOMITTING. TRANSFUSION CONSENT SIGNED, TYPE AND CROSS DRAWN. WILL AWAIT BLOOD BANK CALL. CALL LIGHT IN REACH AT THIS TIME.
[2018-08-13 14:24] LABS: rbc morphology (normal/abnorm) ABNORMAL (NORMAL)
[2018-08-13 16:37] VITALS: BP 137/62
--- NOTE | 2018-08-13 17:54 | NUR ---
1 UNIT PRBCS INFUSING AT THIS TIME. NO ADVERSE REACTIONS NOTED DURING FIRST [address] RODRIGUEZ IN TO CHANGE DRESSING ON PATIENT L FOOT. DR RODRIGUEZ NOTES THAT PODIATRY WILL CHANGE DRESSING EVERY 2-[address] YOUNG ALSO IN TO SPEAK WITH PATIENT AND FAMILY, INCREASE O2 TO HIGH FLOW OXYGEN W BIPAP AT NIGHT AND TREATMENTS. WILL ENDORSE TO ONCOMING NURSE.
--- NOTE | 2018-08-13 19:48 | NUR ---
RECEIVED PT FROM PREVIOUS SHIFT. PT A/OX4. DENIES SOB ON HIGH FLOW O2. UNIT OF PRBC INFUSING WITH NO S/S OF INFILTRATION OR TRANSFUSION REACTION. F/C DRAINING TO GRAVITY. CALL LIGHT WITHIN REACH, BED IN LOW POSITION. WILL CONTINUE TO MONITOR.
--- NOTE | 2018-08-13 19:59 | NUR ---
BLOOD COMPLETED AT THIS TIME. VSS. BUILDING TECHEMERSON, AT BEDSIDE. WILL CONTINUE TO MONITOR.
[2018-08-13 20:24] VITALS: BP 159/74
--- NOTE | 2018-08-14 00:31 | NUR ---
PT RESTING IN NO ACUTE DISTRESS. RR EVEN/UNLABORED. CALL LIGHT WITHIN REACH, BED IN LOW POSITION. WILL CONTINUE TO MONITOR.
[2018-08-14 04:02] VITALS: BP 136/67
[2018-08-14 07:13] LABS: BASOPHIL % 0.7 % (0-2); PLATELET COUNT 356 x10^3mcL (130-400)
[2018-08-14 07:14] LABS: RED CELL DISTRIBUTION WIDTH 16.6 % (11.5-14.5)
--- NOTE | 2018-08-14 07:15 | NUR ---
RECEIVED PT FROM NOC MAGAN HOYOS. PT RESTING IN BED WITH BOTH EYES CLOSED. NO S/S OF ACUTE DISTRESS. NO SOB ON HIGH FLOW OXYGEN 20LPM AT FIO2 60%. RR EVEN/UNLABORED AT THIS TIME. NO S/S OF PAIN. BOLTON IN TACT. IV WNL TO RH, PATENT AND FLUSHES WELL. FALL PRECAUTIONS IN PLACE. NSR ON TELE, HR 82. NO S/S OF CHEST PAIN. DRESSING TO LEFT FOOT CDI. FLUID RESTRICTION IN PLACE. BED IN LOW POSITION. CALL LIGHT WITHIN REACH. SIDE RAILS UP X2. WILL CONTINUE TO MONITOR.
[2018-08-14 07:32] LABS: CALCIUM 8.9 mg/dL (8.5-10.1); CARBON DIOXIDE 24.9 mmol/L (21-32); CREATININE SERUM 2.2 mg/dL (0.6-1.0); POTASSIUM SERUM 4.8 mmol/L (3.5-5.1)
[2018-08-14 08:14] VITALS: BP 142/65
--- NOTE | 2018-08-14 10:35 | NUR ---
PT LAYING IN BED RESTING WITH BOTH EYES CLOSED. EASILY AROUSABLE TO VERBAL STIMULI. NO S/S OF ACUTE DISTRESS. NO S/S OF PAIN. NO S/S OF ACUTE RESPIRATORY DISTRESS ON 20LPM HIGH FLOW OXYGEN FIO2 60%. RR EVEN/UNLABORED. NO S/S OF CHEST PAIN. IV WNL TO RH. BED IN LOW POSITION. CALL LIGHT WITHIN REACH. FALL PRECAUTIONS IN PLACE. SIDE RAILS UP X2. BED ALARM ON. WILL CONTINUE TO MONITOR.
[2018-08-14 11:52] VITALS: BP 133/67
--- NOTE | 2018-08-14 18:15 | NUR ---
PT SITTING UP IN BED EATING DINNER. NO S/S OF ACUTE RESPIRATORY DISTRESS. RR EVEN/UNLABORED. CHEST EXPANSION SYMMETRICAL. NO SOB ON HIGH FLOW OXYGEN AT 20LPM FIO2 50%. DENIES PAIN. IV WNL TO RH, PATENT AND FLUSHES WELL. CALM/COOPERATIVE. FALL PRECAUTIONS IN PLACE. BOLTON IN TACT. OUTPUT FOR DAYSHIFT 1900CC CLOUDY/YELLOW. BED IN LOW POSITION. CALL LIGHT WITHIN REACH. WILL ENDORSE TO ONCOMING SHIFT.
--- NOTE | 2018-08-14 19:50 | NUR ---
RECEIVED PT FROM PREVIOUS SHIFT. PT DROWSY/AROUSABLE TO VERBAL STIMULI. IV PATENT, INFUSING NS AT 10ML/HR WITH NO S/S OF INFILTRATION. F/C DRAINING TO GRAVITY WITH YELLOW OUTPUT. CALL LIGHT WITHIN REACH, BED IN LOW POSITION. WILL CONTINUE TO MONITOR.
[2018-08-14 21:10] VITALS: BP 146/65
[2018-08-15] VITALS (7 sets, daily range): BP systolic 116–145; BP diastolic 54–70
--- NOTE | 2018-08-15 00:43 | NUR ---
PT RESTING IN NO ACUTE DISTRESS. RR EVEN AND UNLABORED. CALL LIGHT WITHIN REACH, BED IN LOW POSITION. WILL CONTINUE TO MONITOR.
--- NOTE | 2018-08-15 07:47 | NUR ---
RCEIVED PATIENT FROM [facility] NURSE. SLEEPING; RESPIRATIONS REGULAR. ON HIGH FLOW O2 AT 20L AND 50%. MONITOR SHOWIN SINUS RHYTHM; RATE 76. BOLTON CATHETER DRAINING LIGHT YELLOW URINE. IV AT TKO RATE OF 10 ML/HR. CONTINUING TO MONITOR.
[2018-08-15 08:09] LABS: CALCIUM 8.5 mg/dL (8.5-10.1); CARBON DIOXIDE 26.5 mmol/L (21-32); CREATININE SERUM 2.4 mg/dL (0.6-1.0); POTASSIUM SERUM 4.8 mmol/L (3.5-5.1)
[2018-08-15 08:34] LABS: BASOPHIL % 0.4 % (0-2); PLATELET COUNT 375 x10^3mcL (130-400)
[2018-08-15 08:42] LABS: RED CELL DISTRIBUTION WIDTH 16.3 % (11.5-14.5)
--- NOTE | 2018-08-15 12:36 | NUR ---
AT 0900 - PATIENT HAS EATEN BREAKFAST. NOW SLEEPING AGAIN. RESPIRATIONS REGULAR. REMAINS ON HIGH FLOW O2 AT 50% BUT HAS BEEN REDUCED TO 15L BY RT. AT 1005 - AWAKE, ALERT AND ORIENTED. SITTING ON SIDE OF BED. C/O BEING HUNGRY. GIVEN SNACK. IV LASIX ADMINISTERED PER EMAR. AT 1055 - GOOD DIURESIS. BOLTON CATHETER DRAINED 800 ML. AT 1200 - PATIENT APPEARS UPSET. CALLING OUT. SAYS THAT HER MOTHER IS IN HOSPITAL AND WANTS TO TALK TO HER. 1T 1230 - PATIENT APPEARS CALMED. SAYS THAT SHE WAS ABLE TO TALK TO HOSPITAL STAFF AT [place] ABOUT HER MOTHER. SITTING ON SIDE OF BED EATING LUNCH. HAS BEEN SEEN BY DR YOUNG. RT HAS ADJUSTED HIGH FLOW O2 TO 10 L AND 40%.
--- NOTE | 2018-08-15 15:25 | NUR ---
AT 1410 - C/O ANXIETY; REQUESTING MEDICATION. MEDICATED WITH IV ATIVAN 1MG PER EMAR. PATIENT HAS NOW BEEN PLACED ON 5L VIA OXYMIZER. TOLERATED WELL.GOOD URINE OUTPUT VIA BOLTON CATHETER.
--- NOTE | 2018-08-15 15:31 | NUR ---
PHYSICAL THERAPY PT REFUSED TREATMENT. UNABLE TO ENCOURAGE. PT EDUCATED WITH BENEFITS OF CONTINUED SERVICES TO INCREASE OVERALL FUNCTIONAL MOBILITY. PT REPORTS THAT DOCTOR VALERIE DIDNT WANT PHYSICAL THERAPY. UNABLE TO CONFIRM IN MEDICAL CHART OR FROM NURSING. WILL ATTEMPT NEXT VISIT. NURSING AWARE.
--- NOTE | 2018-08-15 18:24 | NUR ---
AWAKE AND ORIENTED. APPEARS CALMER SINCE RECEIVING ATIVAN. PATIENT WAS ALSO ABLE TO SPEAK WITH HER MOTHER PER PHONE. VSS. AFEBRILE. RESPIRATIONS REGULAR. NOW ON OXYMIZER AT 3L/MIN. TOLERATED WELL. O2 SAT 97%. HAS HAD 2000 ML URINE OUTPUT THIS SHIFT. EATING A CCHO DIET WITH GOOD APPETITE. L FOOT DRESSING REMAINS DRY AND INTACT. WILL ENDORSE CARE TO NIGHT NURSE.
--- NOTE | 2018-08-15 19:41 | NUR ---
REC'D PT FROM DAY NURSE. PT RESTING IN BED, ASLEEP. AWAKENS WITH VERBAL STIMULI. DROWSY. AAOX4, SPEECH CLEAR, FOLLOWS COMMANDS. TELE 11, SR. DENIES CP, DIZZINESS, OR PALPITATIONS. BREATHING EVEN/UNLABORED ON 3L OXYMIZER, SPO2 98%. ABD SOFT/ROUND. DENIES ABD PAIN, TENDERNESS, OR N/V. BOLTON DRAINING YELLOW URINE TO GRAVITY. GEN WEAKNESS, WC AT HOME. REPOSITIONS FREQUENTLY AND INDEPENDENTLY. L FOOT AMP, DRESSING CDI. DENIES PAIN AT THIS TIME. IV TO RH FLUSHED AND PATENT, SITE WNL. CALL LIGHT WITHIN REACH, BED AT LOWEST POSITION. WILL CONTINUE TO MONITOR.
--- NOTE | 2018-08-15 21:20 | NUR ---
DAISY GIVEN PER REQUEST FOR INSOMNIA.
--- NOTE | 2018-08-16 00:43 | NUR ---
PT RESTING IN BED WITH EYES CLOSED. LAYING ON R SIDE. NO SIGNS OF DISTRESS NOTED. BREATHING EVEN/UNLABORED ON 3L O2 VIA OXYMIZER. CALL LIGHT WITHIN REACH, BED AT LOWEST POSITION. WILL CONTINUE TO MONITOR.
--- NOTE | 2018-08-16 02:45 | NUR ---
PT C/O MODERATE ABD PAIN AND CRYING OUT FOR HER MOM. UNABLE TO DESCRIBE PAIN. STATES "IT JUST HURTS WHEN I BREATHE." TYLENOL GIVEN PER ORDER. WILL MONITOR FOR RELIEF. SPO2 96% ON 3L OXYMIZER.
--- NOTE | 2018-08-16 03:32 | NUR ---
PT SITTING UP AT THE SIDE OF THE BED AND CRYING. STATES SHE IS WORRIED FOR HER MOM (HAS BEEN ADMITTED IN [facility]). ALSO CRYING BC SHE "CANNOT SLEEP" AND FEELS ANXIOUS. ATIVAN GIVEN PER ORDER. WILL CONTINUE TO MONITOR.
[2018-08-16 05:41] VITALS: BP 123/81
--- NOTE | 2018-08-16 06:07 | NUR ---
PT RESTING IN BED WITH EYES CLOSED. BREATHING EVEN/UNLABORED ON 3L O2 VIA OXYMIZER. NO SIGNS OF DISTRESS OR PAIN NOTED. BOLTON CARE COMPLETED. DUE MEDS GIVEN. NO SIGNIFICANT CHANGES DURING SHIFT. CALL LIGHT WITHIN REACH, BED AT LOWEST POSITION. WILL ENDORSE TO DAY NURSE.
[2018-08-16 07:14] LABS: CALCIUM 8.3 mg/dL (8.5-10.1); CARBON DIOXIDE 25.7 mmol/L (21-32); CREATININE SERUM 2.7 mg/dL (0.6-1.0); MAGNESIUM 1.9 mg/dL (1.8-2.4)
[2018-08-16 07:29] LABS: BASOPHIL % 0.8 % (0-2); PLATELET COUNT 404 x10^3mcL (130-400); RED CELL DISTRIBUTION WIDTH 16.3 % (11.5-14.5)
--- NOTE | 2018-08-16 07:45 | NUR ---
RECEIVED PT IN BED, AXOX4, VERBAL, FOLLOW COMMAND, CALM AND COPPERATIVE WITH POC, CCHO AND CARDIAC DIET, TOLERATUING WELL, NO ACUTE DISTRESS NOTED, DENIES GOLDSTEIN/PAIN/N/V/DIZZINESS, DENIES CP/PRESSURE, LUNGS CTA, DIM BLL, ON 3L/MIN O2 VIA MAXIMIZER, TOLERATING WELL, (L) EYE PERRLA, (R) EYE NOT RESPONSE TO LIGHT, NO REDNESS/DISCHARGE, ON TELE #11, HR 74, NSR, ABD ROUNF AND NON-TENDERED TO TOUCH, BS ACTIVE X 4, SKIN W/D/I, IV TO (R) ARM PATENT AND FLUSH WELL, ABLE TO MOVE ALL EXTREMITIES, (L) FOOT AMBUTATION WOUDN WITH CLEAN DRESSING, NO S/S OF INFECTION NOTED, PALP PULSES, CAP REFILL < 3 SEC, CALL LIGHT IN REACH, BED AT LOW POSITION, RAILS X 2, CONTINUE TO MONITOR
--- NOTE | 2018-08-16 08:47 | NUR ---
PT IN BED, IN NO ACUTE DISTRESS, RESP EVEN AND NO-LABORED, DENIES PAIN/DISCOMFORT/GOLDSTEIN/CP, AM MEDS GIVEN PER MD ORDER VIA EMAR, TOLERATED WELL, NO ASE NOTED AT THIS TIME, ALL NEEDS MET AT THIS TIME, CALL LIGHT IN REACH, BED AT LOW POSITION, RAILS X 2, CONTINUE TO MONITOR
[2018-08-16 09:43] VITALS: BP 139/66
--- NOTE | 2018-08-16 12:29 | NUR ---
C/O HEADACHE. MEDICATED WITH TYLANOL PER EMAR.
--- NOTE | 2018-08-16 12:42 | NUR ---
PT RESTING IN BED, IV TO (R) FA INFILTRATED, IV REMOVED, IV CATH INTACT, NO S/S OF INFLAMATION NOTED, NEW IV TO (L) AC, INTACT AND INFUSING WELL, PT IN NO ACUTE RESP DISTRESS/SOB, DENIES PAIN/GOLDSTEIN/CP/N/V, ALL NEEDS MET AT THIS TIME, ROB LIGHT IN REACH, BED AT LOW POSITION, RAILS X2, CONTINUE TO MONITOR
[2018-08-16 13:02] VITALS: BP 142/72
--- NOTE | 2018-08-16 14:35 | NUR ---
PT RESTING IN BED, RESP EVEN AND NON-LABORED, IN NO ACUTE DISTRESS/SOB, IV PATENT AND FLUSHIGN W/O OBSTRUCTION, KVO, CALL LIGHT IN REACH, BEDS AT LOW POSITION, RAILS X 2, CONTIUE TO MONITOR
[2018-08-16 17:40] VITALS: BP 113/61
--- NOTE | 2018-08-16 18:16 | NUR ---
PT SLEEPING IN BED, IN NO ACUTE RESP DISTRESS/SOB, RESP EVEN/NON-LABORED, ON 2L/MIN VIA NC, 98%, CHEST RISE SYMMETRICALLY, DENIES PAIN/GOLDSTEIN/CP/PRESSURE AT THIS TIME, DENIES N/V, SKIN W/D/I, TOLLERATED DIET AND MED WELL AT THIS TIME, NO ASE NOTED, ALL NEEDS MET, CALL LIGHT IN REACH, BED AT LOW POSITION, RAILS X2, WILL ENDORSE TO NIGHTSHIFT NURSE
--- NOTE | 2018-08-16 19:20 | NUR ---
REC'D PT FROM DAY NURSE. PT RESTING IN BED, APPEARS TO BE SLEEPING. AWAKENS WITH VERBAL STIMULI. AAOX4, SPEECH CLEAR, FOLLOWS COMMANDS. TELE 11. DENIES CP, DIZZINESS OR PALPITATIONS. DENIES RESP DISTRESS OR SOB. BREATHING EVEN/UNLABORED ON 2L O2 VIA NC WITH HUMIDIFIER, SPO2 96%. NO EDEMA NOTED. ABD SOFT/ROUND. DENIES ABD PAIN, TENDERNESS, OR N/V. BOLTON DRAINING YELLOW URINE TO GRAVITY. GEN WEAKNESS. L FOOT AMPUTATION, DRESSING CDI. DENIES PAIN AT THIS TIME. IV TO LAC FLUSHED AND PATENT, SITE WNL. CALL LIGHT WITHIN REACH, BED AT LOWEST POSITION. WILL CONTINUE TO MONITOR.
[2018-08-16 20:23] VITALS: BP 122/63
--- NOTE | 2018-08-16 22:17 | NUR ---
PT CRYING IN BED. STATES FEELING ANXIOUS. SHE IS CRYING BC OF AN ARGUMENT SHE HAD WITH HER BOYFRIEND OVER THE PHONE. WILL GIVE ATIVAN PER ORDER.
--- NOTE | 2018-08-17 01:12 | NUR ---
PT CRYING IN BED C/O GOLDSTEIN. WENT TO GET TYLENOL BUT PT NOW ASLEEP. NO S/SX OF PAIN NOTED. BREATHING EVEN/UNLABORED ON 2L WITH HUMIDIFIER. WILL CONTINUE TO MONITOR.
--- NOTE | 2018-08-17 02:32 | NUR ---
PT AGITATED AND THREATENING TO SCREAM IF SHE DOESN'T GET ANYTHING FOR SLEEP. INFORMED PT SHE HAD ALREADY RECEIVED AMBIEN WITH HER NIGHT MEDS. PT STATED "I DIDN'T GET AMBIEN. I GOT TYLENOL FOR MY GOLDSTEIN." ATIVAN GIVEN FOR AGITATION.
[2018-08-17 05:37] VITALS: BP 122/52
--- NOTE | 2018-08-17 06:25 | NUR ---
PT RESTING IN BED WITH EYES CLOSED. EAGER TO EAT BREAKFAST. AT ONE POINT PT WAS CRYING AND SAID SHE WANTS TO GO HOME. INFORMED HER SHE MAY POSSIBLY BE DISCHARGED TODAY. ALSO INFORMED OF RIGHT TO LEAVE AGAINST MEDICAL ADVISE BUT PT STATED NO ONE WILL PICK HER UP IF SHE'S "NOT READY [TO BE DISCHARGED]." BREATHING EVEN/UNLABORED ON 2L NC WITH HUMIDIFIER. BOLTON CARE COMPLETED. CALL LIGHT WITHIN REACH, BED AT LOWEST POSITION. WILL ENDORSE TO DAY NURSE.
--- NOTE | 2018-08-17 07:30 | NUR ---
RECEIVED PT IN BED, AXOX4, VERBAL, CALM AND COPPERATIVE AT THIS TIME, PERRLA TO (L) EYE, (R) EYE NO RESPONSE TO LIGHT, NO REDNESS/DRAINAGE, RESP EVEN AND NON-LABORED, 2L/MIN VIA NC, DENIES N/V/CP/PRESSURE/GOLDSTEIN, CHEST RISE SYMMETICALLY, DIM LUNGS BLL, CRACKLE TO (R), ABD ROUND AND NON-TENDER TO TOUCH, BS ACTIVE X4, ABLE TO MOVE ALL EXTREMITIES, PALP PULSES, CAP REFIL < 3, (L) FOOT AMBUTATION WITH BANDAID, DRESSING INTACT AND CLEAN, PODIATRIC WILL CHANGE BANDAID DRESSIGN ON Saturday08/18/18, PT AWARE, IV TO L AC PATIENT AND INFUDING WELL, SKIN W/D/C, FC CARE DONE, URINE YELLOW, CLEAR AND NO SEGDIMENT, PT IN NO ACUTE DISTRESS, ALL NEEDS MET, BED AT LOW POSITION, ROB LIGHT IN REACH, CONTINUE TO MONITOR
[2018-08-17 08:34] LABS: BASOPHIL % 0.8 % (0-2)
[2018-08-17 08:39] LABS: PLATELET COUNT 484 x10^3mcL (130-400); RED CELL DISTRIBUTION WIDTH 16.3 % (11.5-14.5)
[2018-08-17 08:49] LABS: CALCIUM 8.3 mg/dL (8.5-10.1); CARBON DIOXIDE 25.6 mmol/L (21-32); CREATININE SERUM 2.8 mg/dL (0.6-1.0); POTASSIUM SERUM 5.1 mmol/L (3.5-5.1)
--- NOTE | 2018-08-17 09:16 | NUR ---
PT IN BED, SLEEPING, IN NO ACUTE DISTRESS, MORNING MED GIVEN PER MD ORDER VIA EMAR, TOLERATED WELL, NO ASE NOTED AT THIS TIME, ALL NEEDS MET, SAFETY PROTOCOL FOLLOWED, CONTINUE TO MONITOR
[2018-08-17 09:44] VITALS: BP 155/77
--- NOTE | 2018-08-17 09:45 | NUR ---
INFORMED SOREN COON ABOUT BUN=66.ORDERED TO CHANGE RATE OF IVF TO 50 ML/HR.ORDERED CARRIED OUT.
[2018-08-17 13:12] VITALS: BP 154/71
--- NOTE | 2018-08-17 14:19 | NUR ---
I HAVE REVIEWED THE DATA COLLECTION BY MAGAN COVINGTON (NAME): ALPHONSO MILLAN RN ENTERED ON (DATE/TIME):08/17/18 @ 8623 I CONCUR WITH THE DATA AND ANY EXCEPTIONS OR COMMENTS ARE LISTED BELOW:
--- NOTE | 2018-08-17 14:40 | NUR ---
RT PUT PT ON ROOM AIR.CLAIMS O2 SAT=96.
--- NOTE | 2018-08-17 16:50 | NUR ---
PT RESTING IN BED, AXOX4, IN NO ACUTE RESP DISTRESS, AT RA, 97%, TOLERATED WELL, NO S/S OF SOB NOTED, PT REQUESTED SPONGE BATH, GIVEN, TAKEN WELL, AFTERNOON MED GIVEN PER MD ORDER, TAKEN WELL, NO ASE NOTED AT THIS TIME, ALL NEEDS MET, ROB LIGHT IN REACH, BED AT LOW POSITION, CONTINUE TO MONITOR
--- NOTE | 2018-08-17 16:50 | NUR ---
INFORMED BY RT PT IS TOLERATING WITHOUT O2. MAINTAINING SPO2=96%.
[2018-08-17 17:27] VITALS: BP 150/67
--- NOTE | 2018-08-17 18:16 | NUR ---
PT IN BED, SLEEPING, IN NO ACUTE RESP DISTRES/SOB, ON RA, 97%, TOLERATED WELL, NO ASE NOTED AT THIS TIME, CHEST RISE SYMMETRICALLY, ALL NEEDS MET AT THIS TIME, CALL LIGHT IN REACH, BED AT LOW POSITION, RAILS X 2, WILL ENDORSE TO KEN CARRERO
--- NOTE | 2018-08-17 20:00 | NUR ---
PT A/A/O X4, MOTHER AT BEDSIDE. PT DENIES DIZZINESS AND HEADACHE. BREATH SOUNDS CLEAR. BREATHING EVEN AND UNLABORED ON ROOM AIR, SPO2 93%. DENIES CHEST PAIN AND PRESSURE. BOWEL SOUNDS ACTIVE. NO C/O N/V AND ABD PAIN. DRESSING NOTED ON THE LEFT LOWER EXTREMITY C/D/I. BOLTON CATH INTACT AND EMPTY. MADE PT COMFORTABLE. PLACED CALL LIGHT WITH IN REACH. WILL CONTINUE TO MONITOR.
[2018-08-17 21:29] VITALS: BP 122/50
--- NOTE | 2018-08-17 23:00 | NUR ---
PT C/O FEELING ANXIOUS. MARCY CARRERO GAVE ATIVAN IVP. WILL CONTINUE TO MONITOR.
--- NOTE | 2018-08-17 23:43 | NUR ---
PT YELLING FOR THE NURSE OVER AND OVER. CHARGE NURSE COURTNEY ELIZABETH RN AND I WENT TO PATIENTS ROOM MULTIPLE TIMES TO TELL HER SHE RECEIVED THE ATIVAN IVP THUS FAR AND THAT SHE IS NOT DUE YET. PT DOES NOT BELIEVE IT AND THINK SHE WAS ONLY GIVEN LOTION BY MARCY CARRERO. EXPLAINED REPEATEDLY TO THE PT THAT MEDICATION HAS BEEN GIVEN. WILL CONTINUE TO MONITOR.
[2018-08-18 03:24] VITALS: BP 120/57
--- NOTE | 2018-08-18 03:29 | NUR ---
PT C/O FEELING ANXIOUS. GAVE PT ATIVAN IVP. PT TOLERATED IT WELL. WILL CONTINUE TO MONITOR.
[2018-08-18 05:28] VITALS: BP 132/63
--- NOTE | 2018-08-18 06:41 | NUR ---
PT MOANING IN BED. DOES NOT ANSWER WHEN ASKED IF SHE NEEDS HELP OR IF SHE IS IN PAIN. SPO2 94% ON ROOM AIR. DRESSING ON THE LEFT LOWER EXTREMITY C/D/I. BOLTON CATH IN PLACE. MADE PT COMFORTABLE. WILL ENDORSE TO THE AM NURSE ACCORDINGLY.
--- NOTE | 2018-08-18 07:30 | NUR ---
RECEIVED PT IN BED A/A/OX4 DENIES GOLDSTEIN. RESP EVEN AND UNLABORED WITH CLEAR BS BILAT. DENIES ANY SOB/CP/PRESSURE. ON RA WITH RT PROTOCOL. ENCOURAGE USE OF IS INSTRUCTED. PT REFUSED TO GIVE RETURN DEMONSTRATION AT THIS TIME. ABD SOFT, NONTENDER WITH ACTIVE BS X4. BOLTON CATH TO GRAVITY WITH YELLOW URINE. NOTED WITH WOUND TO LT STUMP WITH HX OF AMPUTATION OF FOOT. DRSG CDI, CARE PROVIDED BY PODIATRY ONLY. PT REMINDED TO BE NON-WEIGHT BARING ON THAT STUMP. CALL LIGHT IN REACH NEEDS ATTENDED TO.
[2018-08-18 07:40] LABS: BASOPHIL % 0.7 % (0-2)
[2018-08-18 08:16] LABS: PLATELET COUNT 462 x10^3mcL (130-400); RED CELL DISTRIBUTION WIDTH 15.8 % (11.5-14.5)
[2018-08-18 08:20] LABS: CALCIUM 8.2 mg/dL (8.5-10.1); CARBON DIOXIDE 25.1 mmol/L (21-32); CREATININE SERUM 2.8 mg/dL (0.6-1.0)
[2018-08-18 08:40] VITALS: BP 167/71
--- NOTE | 2018-08-18 08:59 | NUR ---
AM MEDS GIVEN, REMOVED BOLTON CATH ORDERED.
--- NOTE | 2018-08-18 10:00 | NUR ---
PT AWARE OF PLANNED D/C HOME THIS MORNING. MOTHER TO PICK PT UP BEFORE NOON TIME. CALL LIGHT IN REACH NEEDS ATTENDED TO.
--- NOTE | 2018-08-18 11:27 | NUR ---
PT HAS POST BOLTON D/C VOID WITH OUT ANY DISCOMFORT.
[2018-08-18 11:28] VITALS: BP 150/68
[2018-08-18 11:32] VITALS: BP 132/63
--- NOTE | 2018-08-18 12:00 | NUR ---
PT/FAMILY PROVIDED WITH D/C HOME INSTRUCTIONS. INSTRUCTED TO CONT HOME MEDICATIONS AND REVIEW LIST AND MEDS GIVEN WITH PT/FAMILY. INSTRUCTED TO CALL PCP OFFICE TO SCHEDULE F/U APT WITH PRIMARY CARE PHYSICIAN. PT ALSO NEEDS TO CALL DR. PARK OFFICE TO SCHEDULE D/U APPT WITH IN 2-3 DAYS OF DISCHARGE FOR WOUND CARE. PT REMINDED TO TO AMBULATE PUTING WEIGHT ON LT STUMP. TO KEEP CLEAN AND ELEVATE EXTREMETY. PT/FAMILY VERBALIZED UNDERSTANDING OF INSTRUCTIONS. UNABLE TO OBTAIN PICTURES OF WOUND AT DISCHANGE SINCE DRSG CHANGES ARE ONLY DONE BY PODIATRY. TELE AND IV D/C'D CATHETER INTACT. PT TRANSPORTED TO [facility] VIA WITH ALL PERSONAL BELONGS IN HAND FREE OF ANY APPARENT DISTRESS.
--- NOTE | 2018-08-19 07:28 | NUR ---
PHYSICAL THERAPY DAILY NOTES CO-SIGN All documentation done by the Welfare Specialist for 08/19/18 has been reviewed. I agree with the documentation. Reviewed/Co-Signed by: Lucy Lazar PT Documentation Done by:DANNY CHAHAL PTA FOR 08/18/18
== END 2018-08-18 11:59 | disposition home health service (06) | DRG 190 ==
LOC: ED 16:26 → DU 19:32
PROVIDERS: Emergency Medicine; ADMIT General Practice
PROC: 30233N1 Transfusion of Nonautologous Red Blood Cells into Peripheral Vein, Percutaneous Approach (ICD-10-PCS; principal; 2018-08-13)
DX: I21.4 Non-ST elevation (NSTEMI) myocardial infarction (principal); J96.01 Acute respiratory failure with hypoxia; N17.0 Acute kidney failure with tubular necrosis; J69.0 Pneumonitis due to inhalation of food and vomit; E44.0 Moderate protein-calorie malnutrition; E83.42 Hypomagnesemia; I42.9 Cardiomyopathy, unspecified; I50.33 Acute on chronic diastolic (congestive) heart failure; I13.0 Hypertensive heart and chronic kidney disease with heart failure and stage 1 through stage 4 chronic kidney disease, or unspecified chronic kidney disease; E11.22 Type 2 diabetes mellitus with diabetic chronic kidney disease; E83.51 Hypocalcemia; N18.9 Chronic kidney disease, unspecified; E11.40 Type 2 diabetes mellitus with diabetic neuropathy, unspecified; J44.9 Chronic obstructive pulmonary disease, unspecified; E11.51 Type 2 diabetes mellitus with diabetic peripheral angiopathy without gangrene; E11.65 Type 2 diabetes mellitus with hyperglycemia; D63.1 Anemia in chronic kidney disease; F15.10 Other stimulant abuse, uncomplicated; Z89.432 Acquired absence of left foot; Z79.82 Long term (current) use of aspirin; Z68.29 Body mass index [BMI] 29.0-29.9, adult; Z87.891 Personal history of nicotine dependence; Z79.84 Long term (current) use of oral hypoglycemic drugs; Z91.19 Patient's noncompliance with other medical treatment and regimen; Z88.5 Allergy status to narcotic agent; Z88.6 Allergy status to analgesic agent; Z90.49 Acquired absence of other specified parts of digestive tract; Z79.899 Other long term (current) drug therapy; Z71.51 Drug abuse counseling and surveillance of drug abuser
CPT/HCPCS: 36600; 82962; 83880; 84439; 85378; 97110-GP; G0378; J1644; J1815; J1940; J2060; J2405; J2543; J3475; J7030; J7040; J7050; J7620; J7626; P9016; Q0092; Q0163

== ENCOUNTER 2018-09-11 09:55 | Inpatient (IN) | payer OTHER ==
[~2018-09-11] VITALS: Ht 157.5 cm; Wt 72.6 kg
[~2018-09-11 09:55] MED LIST changes: +ATORVASTATIN CA40 M1 PO; +HYDRALAZINE HCL25 MG PO; +ISOSORBIDE MONO60 MG PO; +NATURAL SENNA8.6 MG PO
--- NOTE | 2018-09-11 09:57 | NUR ---
DR NAJERA AT BEDSIDE FOR BEDSIDE REPORT BY [facility]. PT ARRIVED WITH NONREBREATHER MASK, SITTING UPRIGHT ON EMS STRETCHER. PT ABLE TO ANSWER ALL QUESTIONS APPROPRIATELY AND PROVIDE MEDICAL HISTORY FOR HERSELF. SKIN IS WNL. RT ADAMES AT BEDSIDE.
[2018-09-11 09:58] VITALS: Ht 157.5 cm; Wt 72.6 kg
--- NOTE | 2018-09-11 09:58 | NUR ---
PT FROM HOME PER MEDIC FOR C/O SOB FOR 3 DAYS. PT WAS FOUND WITH HOME O2 AT 2L AND AT MID 80'S O2 SATURATION. PER MEDIC PT'S MOM IS CAREGIVER FOR HER. PT SPEAKS IN CLIPPED SENTENCES. EYES OPEN SPONTANEOUSLY AND IS COOPERATIVE AT THIS TIME. PT EXPLAINED TO THE NEED AND REASON FOR BIPAP USE AND PT COMPLIED.
--- NOTE | 2018-09-11 10:04 | NUR ---
BIPAP PLACED UPON PT ARRIVAL BY RT ADAMES PER DR NAJERA ORDER
--- NOTE | 2018-09-11 10:06 | NUR ---
PLACED PT ON BIPAP PER DR NAJERA. PT UNABLE TO TOLERATED INITIAL SETTINGS OF 12/6, TITRATED PT TO 10/5 DR NAJERA NOTIFIED, PT TOLERATING BIPAP FAIRLY WELL. SPO2 AT 955, WILL TITRATE TO MAINTAIN SPO2 ABOVE 92%. WILL CONTINUE TO MONITOR.
--- NOTE | 2018-09-11 10:16 | NUR ---
PCXR AT BEDSIDE.
[2018-09-11 10:23] LABS: BASOPHIL % 0.4 % (0-2); PLATELET COUNT 310 x10^3mcL (130-400)
[2018-09-11 10:27] LABS: CALCIUM 8.4 mg/dL (8.5-10.1); CREATININE SERUM 2.4 mg/dL (0.6-1.0); POTASSIUM SERUM 4.5 mmol/L (3.5-5.1)
[2018-09-11 10:28] LABS: RED CELL DISTRIBUTION WIDTH 18.2 % (11.5-14.5)
--- NOTE | 2018-09-11 10:28 | NUR ---
MOM IS AT BEDSIDE. PT ANXIOUS AND STATING "AM I GOING TO ? I'M GOING TO AREN'T I??" ATTEMPTED CALMING MEASURES. PT REQUESTED "CAN I HAVE SOMETHING TO CALM ME DOWN?"
[2018-09-11] MEDS ORDERED: ZIA10 (10:29)
[2018-09-11 10:32] LABS: BILIRUBIN TOTAL 0.7 mg/dL (0.20-1.00); TOTAL PROTEIN, SERUM 7.3 g/dL (6.4-8.2)
[2018-09-11 10:33] LABS: ALBUMIN 2.6 g/dL (3.4-5.0)
--- NOTE | 2018-09-11 10:38 | NUR ---
PT CALM AT THIS TIME, TAKING DEEP SLOW BREATHS. MOM AND SISTER FACILITATING WITH HELPING PT CALM DOWN.
--- NOTE | 2018-09-11 10:38 | NUR ---
PT'S SISTER AT BEDSIDE STS PT [place] F[place] FOR [place] TIME WITH [place]F [place] [facility] [place]
--- NOTE | 2018-09-11 11:45 | NUR ---
PILLOW GIVEN TO PT. REMAINS SITTING UPRGITH WITH MONITORS IN PLACE. SISTER AND MOM AT BEDSIDE
--- NOTE | 2018-09-11 12:13 | NUR ---
PER RT PT C/O BIPAP FEELIGN UNCOMFORTABLE SO IT WAS REMOVED. PT ON 2L NC AT THIS TIME. PT ALSO PLACED ON BEDPAN. SOILED PAD REMOVED AND GIVEN NEW ONE
--- NOTE | 2018-09-11 12:24 | NUR ---
PT USED BEDPAN. BLOOD IN URINE SEEN. PT PLACED BACK IN UPRIGHT POS 45 DEG HOB. PT DE-SAT TO 90% ON OXYGEN. RT CALLED
--- NOTE | 2018-09-11 12:31 | NUR ---
O2 SAT BACK UP TO 94%.
--- NOTE | 2018-09-11 12:46 | NUR ---
REPORT GIVEN TO VICENTE RICKS RN
[2018-09-11 13:15] VITALS: BP 150/69
--- NOTE | 2018-09-11 13:21 | NUR ---
RECEIVED PT FROM ED VIA MARISOL. ORIENTED PT TO ROOM AND SURROUNDINGS. IV NOTED TO R WRIST PATENT AND INTACT. TELE 15 PLACED ON PT READNING NSR. INSTRUCTED PT ON THE USE OF CALL LIGHT FOR ASSISTANCE. ENDORSED PT TO PRIMARY NURSE VICENTE
[2018-09-11 13:38] LABS: MAGNESIUM 2.2 mg/dL (1.8-2.4)
[2018-09-11 13:41] LABS: CHOLESTEROL/HDL RATIO 1.8
--- NOTE | 2018-09-11 15:50 | NUR ---
PT REQUESTING TO GO TO THE BATHROOM. OFFERED PT A BEDPAN, PT AGREED. PT STATES SHE HAS BEEN MENSTURATING FOR A DAY. PT URINATED AND BLOOD WAS PRESENT. WHEN REMOVING BEDPAN, BEDPAN SPILT ONTO THE BED. PT STATES "I WENT TOO MUCH, JUST GIVE ME A CATHETER." REQUESTING TO HAVE A URINARY CATHETER INSERTED. INFORMED PT ABOUT THE RISK OF CATHETER ASSOCIATED INFECTION. PT STATED "I DON'T CARE, I WANT A CATHETER." INFORMED THE PT THAT I WILL NOTIFY OF THE PT'S REQUESTING. PT IS ALSO REQUESTING PAIN MEDICATION AND IS COMPLAINING OF BACK PAIN. WILL NOTIFY CLEANED UP PT, CHANGED SHEETS AND MENSTURAL PAD. MADE PT COMFORTABLE IN BED. PT LOOKS TO BE IN NO ACUTE DISTRESS AT THIS TIME. BED IN LOWEST POSITION, CALL LIGHT WITHIN REACH. WILL CONITNUE TO MONITOR.
--- NOTE | 2018-09-11 17:15 | NUR ---
PREFORMED A SPOT CHECK BLOOD SUGAR. CURRENT BLOOD SUGAR IS 82.
[2018-09-11 17:17] VITALS: BP 157/77
[2018-09-11 18:11] VITALS: BP 157/77
--- NOTE | 2018-09-11 18:24 | NUR ---
ABG DRAW ATTEMPTED, PT REFUSED. NO RESP DISTRESS NOTED. RN MADE AWARE. WILL CONT TO MONITOR
--- NOTE | 2018-09-11 18:45 | NUR ---
PT IS FEELING VERY ANXIOUS AND IS REQUESTING TO HAVE A MEDICATION TO HELP HER TO SLEEP. PT STATES THAT SHE WAS UNABLE TO SLEEP LAST NIGHT OR TODAY AND SAYS "I JUST WANT TO SLEEP" PT VERBALIZED THAT SHE IS UNSURE IF SHE IS AFRAID TO SLEEP IF THAT IS THE REASON FOR NOT GETTING ANY SLEEP AND THEN STARTED CRYING. REASSURED PT THAT SHE IS SAFE IN THE HOSPITAL AND THAT SHE CAN SLEEP SAFELY HERE. PT ASKED FOR ASSISTANCE TO HELP WITH CALLING HER MOTHER ON THE TELEPHONE SINCE SHE IS UNABLE TO SEE THE NUMBERS ON THE PHONE. TELEPHONE THE PT'S MOTHER AND PT IS TALKING WITH HER MOTHER AT THIS TIME. CALL LIGHT WITHIN REACH. WILL NOTIFY OF PT'S REQUEST AND WILL ENDORSE TO ONCOMING SHIFT.
--- NOTE | 2018-09-11 19:45 | NUR ---
AOX4. TELE #15, SR. BREATHING E/U ON NC @ 5L. L BKA NOTED WITH COBBOBBY. BLANCHABLE REDNESS TO COCCYX. DENIES PAIN. IV TO R WRIST, PATENT. PT CURRENTLY CRYING, STATES "PLEASE DONT LEAVE, I DONT WANT TO BE ALONE" REASSURED PT I WILL BE NEARBY AND TO USE CALL LIGHT IF SHE NEEDS ASSISTANCE. BED IN LOWEST POSITION, 2 SIDE RAILS UP, CALL LIGHT IN REACH.
[2018-09-11 20:19] VITALS: BP 146/98
--- NOTE | 2018-09-11 20:35 | NUR ---
PT PLACED ON OXYMIZER @ 5L BY RT.
--- NOTE | 2018-09-11 21:55 | NUR ---
PT C/O ANXIETY AND BEING UNABLE TO SLEEP, ALSO TEARFUL. ADMINISTERED ATIVAN IVP PER EMAR. RR AT THIS TIME 18. PT O2 SAT 94% ON OXYMIZER @ 5L.
--- NOTE | 2018-09-11 23:23 | NUR ---
PT RESTING IN BED WITH EYES CLOSED. BREATHING E/U. RR 16.
--- NOTE | 2018-09-12 02:29 | NUR ---
RESTING IN BED WITH EYES CLOSED. BREATHING E/U. NO ACUTE DISTRESS NOTED. WILL CONTINUE TO MONITOR.
[2018-09-12 05:44] VITALS: BP 150/74
--- NOTE | 2018-09-12 07:05 | NUR ---
PT HAD RESTFUL NIGHT. 02 SAT THIS AM 97% ON OXYMIZER @ 5L. NO ACUTE DISTRESS NOTED. WILL ENDORSE TO ONCOMING RN.
--- NOTE | 2018-09-12 07:16 | NUR ---
RECEIVED REPORT FROM RAMILA CARRERO. PATIENT RESTING IN BED WITH ALL NEEDS MET. SALINE LOCK TO RT WRIST IS PATENT AND INTACT. NO REDNESS OR PAIN. TELE # [address] PT DENIES CHEST PAIN. PT ON O2 5L W/ OXIMIZER. NO DISTRESS NOTED. ALL QUESTIONS AND CONCERNS ADDRESSED.
[2018-09-12 07:19] LABS: BASOPHIL % 0.5 % (0-2); PLATELET COUNT 294 x10^3mcL (130-400)
[2018-09-12 07:25] VITALS: BP 166/76
[2018-09-12 07:31] LABS: RED CELL DISTRIBUTION WIDTH 17.8 % (11.5-14.5)
[2018-09-12 07:46] LABS: UA SPECIFIC GRAVITY 1.015 (1.005-1.035); microscopic required? YES; urine erythrocyte 3+ (NEGATIVE)
[2018-09-12 07:53] LABS: CALCIUM 8.7 mg/dL (8.5-10.1); CARBON DIOXIDE 23.9 mmol/L (21-32); CREATININE SERUM 2.5 mg/dL (0.6-1.0); MAGNESIUM 2.2 mg/dL (1.8-2.4); PHOSPHOROUS 5.2 mg/dL (2.5-4.9); POTASSIUM SERUM 4.6 mmol/L (3.5-5.1)
[2018-09-12 08:14] LABS: AMPHETAMINE QUAL UR POSITIVE (See below)
--- NOTE | 2018-09-12 11:49 | NUR ---
RECEIVED CALL FROM PHARMACY FOR CLAIRIFICATION OF PRICRIT ORDER. DR MAGGIE CLINTON.
[2018-09-12 11:55] VITALS: BP 148/78
--- NOTE | 2018-09-12 13:50 | NUR ---
DOWN TO PHARMACY FOR PROCRIT. PHARMACY STATED THAT PROCRIT HAS BEEN BROUGHT UP. WENT TO OBTAIN AND IT IS NOT THERE. AWAITING PHARMACY FOLLOW UP.
--- NOTE | 2018-09-12 14:27 | NUR ---
RENAL ULTRASOUND BEING CONDUCTED NOW.
[2018-09-12 16:40] VITALS: BP 142/67
--- NOTE | 2018-09-12 16:55 | NUR ---
AWARE OF THE RESULTS OF THE U/S ABD.
--- NOTE | 2018-09-12 16:57 | NUR ---
DR DALTON IN TO SEE AND ASSESS PATIENT. DE REPORTS SHE HAS TO PUSHNURINE OUT. DR DALTON TO ORDER CT.
--- NOTE | 2018-09-12 19:30 | NUR ---
RECIEVED PT SLEEPING IN BED WITH NO ACUTE DISSTRESS AT THIS TIME, FAMILY AT BEDSIDE, PT EASILY AROUSABLE TO VERBAL STIMULI. ASSESSMENT PERFORMED AT THIS TIME, PT DENIES PAIN OR SOB 4L VIA OXIMIZER IN PLACE, SAFETY PRECAUTIONS IN PLACE, WILL CONTINUE TO MONITOR
--- NOTE | 2018-09-12 19:31 | NUR ---
REPORT GIVEN TO JULIO CARRERO. PATIENT RESTING COMFORTABLY IN BED. ALL NEEDS MET. SALINE LOCK TO LFA IS PATENT AND INTACT. NO REDNESS OR PAIN. PT ON 02 4L W/ OXIMIZER. NO DISTRESS NOTED. ALL QUESTIONS AND CONCERNS ADDRESSED.
[2018-09-12 20:52] VITALS: BP 140/70
--- NOTE | 2018-09-12 22:55 | NUR ---
PT LEAVING IN WHEELCHAIR TO RADIOLOGY
--- NOTE | 2018-09-12 23:35 | NUR ---
PT RETURNING FROM CT NO SOB, DENIES PAIN AND TRANSFERED TO BED
--- NOTE | 2018-09-13 01:50 | NUR ---
PT SLEPING IN BED WITH NO DISTRESS NOTED, OXIMIZER AT 4 L NO SOB NOTED, RESPIRATIONS EVEN AND UNLABORED, SAFETY PRECAUTIONS IN PLACE, WILL CONTINUE TO MONITOR.
--- NOTE | 2018-09-13 03:05 | NUR ---
PT REPORTS SOB WHEN REPOSITIONING, INCREASED O2 VIA OXIMIZER TO 5L, PT CAUGHT HER BREATH AND O2 WAS TURNED BACK DOWN TO 4L, O2 95%
--- NOTE | 2018-09-13 05:19 | NUR ---
PT SLEPT THROUGH MAJORITY OF THE NIGHT, PT HAD ONE TEMPORARY EPISODE OF SOB WHEN REPOSITIONING WITH ANIMAL [facility]CARE PROVIDER THAT RESOLVED WITH AN INCREASE OF SUPPLIMENTAL O2 RO 5L VIA OXIMIZER AND THEN REDUCED BACK TO ITS ORIGINAL SETTING OF 4L AND PT HAS HAD NO SOB SINCE. SAFETY PRECAUTIONS MAINTAINED THROUGH THE NIGHT, WILL CONTINUE TO MONITOR AND ENDORSE CARE TO ONCOMING RN
[2018-09-13 05:48] VITALS: BP 140/68
[2018-09-13 07:15] LABS: BASOPHIL % 0.6 % (0-2); PLATELET COUNT 282 x10^3mcL (130-400)
[2018-09-13 07:18] LABS: CALCIUM 8.1 mg/dL (8.5-10.1); CARBON DIOXIDE 23.6 mmol/L (21-32); CREATININE SERUM 2.6 mg/dL (0.6-1.0); PHOSPHOROUS 5.9 mg/dL (2.5-4.9); POTASSIUM SERUM 4.6 mmol/L (3.5-5.1)
--- NOTE | 2018-09-13 07:20 | NUR ---
RECEIVED PT IN BED, AXOX4, VERBAL, AMERICAN, CALM AND COPPERATIVE, PERRLA, (R) EYE BLIND, NO FACIAL DROOP/SLURRED SPEECH, REPORTED NO PAIN/CP/PRESSURE, DENIED N/V/D/DIZZINES, NO REDNESS/DRAINAGE, ON MAXIMIZER AT 4L/MIN, 95% AT THIS TIME, IN NO ACUTE RESP DISTRESS, CHEST RISE SYMMETRICALLY, ABD ROUND AND NONTENDER TO TOUCH, BS ACTIVE X 4, LAST BM THIS AM, SOFT, PT ON MENSTRUATION PERIOD, PAD CHANGED, REPORTED NO ABD DISCOMFORT, CONTINENT, FLUID RESTRICTION 1000ML/24 HOURS, (L) FOOT AMBUTATION, DRESSING C/D/I, ABLE TO MOVE ALL EXTREMITIES, FALL RISK, NEED ASSISTANCE OOB, SKIN D/W/C, BLANCABLE REDNESS TO COCCYX AREA, BLE SELF-INFLICTED SCRATCHES, PALP PULSES, CAP REFILL < 2 SECS, ALL NEEDS MET, SAFETY PRECAUTION FOLLOWED, CONTINUE TO MONITOR
[2018-09-13 07:40] LABS: RED CELL DISTRIBUTION WIDTH 17.5 % (11.5-14.5)
[2018-09-13 07:55] LABS: IRON 52 ug/dL (50-170)
[2018-09-13 07:56] LABS: TOTAL IRON BINDING CAPACITY 232 ug/dL (250-450)
[2018-09-13 08:19] VITALS: BP 133/67
--- NOTE | 2018-09-13 09:56 | NUR ---
PT IN BED, SLEEPING, IN NO ACUTE RESP DISTRESS, AM MED GIVEN PER MD ORDER VIA EMAR, TAKEN WELL, NO ASE NOTED AT THIS TIME, ALL NEEDS MET, ASSISTED TO BATHROOM, VOID X 1, ASSISTED BACK TO BED, RESTING, SAFETY PRECAUTION FOLLOWED, ALL NEEDS MET, CONTINUE TO MONITOR
--- NOTE | 2018-09-13 11:15 | NUR ---
PT REPORTED (R) SIDED RIBS AREA PAIN DURING INHALATION, 09/03, DULL, ASSESSMENT DONE NOTED NO CHANGES TO RESP, IN NO ACUTE RESP DISTRESS, O2 SAT 95%, DIM BLL, ON MAXIMIZER 4L/MIN, PT FELT ASLEEP DURING ASSESSMENT, DR. KRYSTLE CLINTON, AWAITING FOR CALLING BACK, CONTINUE TO MONITOR
--- NOTE | 2018-09-13 11:58 | NUR ---
DR DALTON CAME TO CHECK ON PT, PT SLEEPING IN BED, APPEARED NO ACUTE RESP DISTRESS, DISCUSS PT CONDITION WITH DR DALTON, NO NEW ORDER AT THIS TIME, CONTINUE TO MONITOR
--- NOTE | 2018-09-13 12:46 | NUR ---
PT SEEN BY DR. DALTON, MOTHER AT BEDSIDE, AWARE OF PT CURRENT CONDITION, CONTINUE TO MONITOR
--- NOTE | 2018-09-13 13:58 | NUR ---
PT SLEEPING IN BED, IN NO ACUTE DISTRESS, MOTHER AT BEDSIDE, QUESTIONS ASKED AND ANSWERED, NO FURTHER CONCERNS NEEDED WHEN ASKED, ALL NEEDS MET, SAFETY PROTOCOL FOLLOWED, CONTINUE TO MONITOR
--- NOTE | 2018-09-13 15:26 | NUR ---
PT REQUESTED EXTRA SANDWICH AND PUDDING, A[facility], STILL REQUEST, NON-COMPLIANCE WITH DIET, EDUCATION PROVIDED, VERBALLY UNDERSTANDING BUT STILL ASK FOR EXTRA SANDWICH, REQUESTED SENT TO FNS DEPARTMENT, PT AWARE, CONTINUE TO MONITOR
--- NOTE | 2018-09-13 16:38 | NUR ---
PT IN BED, AXOX4, PT VERBALIZED TO GIVE AUTHORIZATION TO GIVE ZOHREH ALONZO, AT BEDSIDE, ABOUT PT'S UPDATED MEDICAL CONDITION AND CARE, QUESTIONS ASKED AND ANSWERED, NO FURTHER CONCERNS NEEDED WHEN ASKED, PT IN NO ACUTE RESP DISTRESS, SAFETY PROTOCOL FOLLOWED, CONTINUE TO MONITOR
[2018-09-13 16:55] VITALS: BP 132/62
--- NOTE | 2018-09-13 18:26 | NUR ---
PT IN BED, AXOX4, IN NO ACUTE RESP DISTRESS, VERBAL, RESP EVEN AND ON-LABORED, ON MAXYMIZER AT 4L/MIN, CHEST RISE SYMMETRICALLY, ABD ROUND AND NON-TENDER TO TOUCH, BS ACTIVE X 4, DENIED PAIN/PRESSURE/CP, REFUSED N/V/D/DIZZINESS, ABLE TO MOVE ALL EXTREMITIES, (L) FOOT AMBUTATION W/ STUMP, DRESSING C/D/I, SKIN D/W/C, PALP PULSES, CAP REFILL < 2 SECS, IV PATENT AND NO INFILTRATION NOTED, ALL NEEDS MET AT THIS TIME, CALL LIGHT IN REACH, BED AT LOW POSITION, RAILS X 2, WILL ENDORSE TO ONCOMING RN
--- NOTE | 2018-09-13 19:40 | NUR ---
RECEIVED PT LAYING IN BED, NO ACUTE DISTRESS OBSERVED, DENIES PAIN OR DISCOMFORT AT THIS TIME. 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 MED-SURG, NO TELE. PULSES PRESENT AND EQUAL THROUGHOUT, NO EDEMA, HEP SQ THERAPY. BREATHING ON 3L OXYMIZER, 93% O2 SAT, LUNGS CTA, DENIES SOB OR DYSPNEA. ABD ROUND AND SOFT WITH ACTIVE BOWEL SOUNDS, DENIES N/V/D. FREELY VOIDS URINE. GENERALIZED WEAKNESS, HX OF L FOOT AMPUTATION, ABLE TO TURN AND REPOSITION SELF IN BED. L FOOT AMPUTATION INCISION WITH DRESSING IN PLACE, CDI. BLANCHABLE ERYTHEMA TO COCCYX. IV TO LFA IN PLACE, DRY, PATENT, INTACT, S/L AT THIS TIME, NO PAIN, REDNESS OR SWELLING NOTED WHEN FLUSHED WITH NS. COMFORT AND SAFETY MEASURES IN PLACE. BED IN LOWEST POSITION WITH SIDE RAILS UP X2 AND BED ALARM ACTIVATED. ALL NEEDS ASSESSED AND ATTENDED TO. CALL LIGHT WITHIN REACH. WILL CONTINUE TO MONITOR
[2018-09-13 20:41] VITALS: BP 128/61
--- NOTE | 2018-09-13 23:47 | NUR ---
PT C.O L SIDED ABD PAINAND REQUESTING PAIN MED. MEDICATED WITH IBUPROFEN X1 PER EMAR
--- NOTE | 2018-09-14 01:14 | NUR ---
SPOKE WITH MOUNA FROM RADIOLOGY REGARDING XR OF L FOT DONE YESTERDAY. WILL F/U WITH RESULT. WILL ANTICIPATE
--- NOTE | 2018-09-14 01:25 | NUR ---
PT SCREAMING, AGITATED, AND TEARFUL. PT REQUESTING ATIVAN. MEDICATED PER EMAR
--- NOTE | 2018-09-14 02:50 | NUR ---
PT LAYING IN BED, BREATHING EVEN AND UNLABORED, NO ACUTE DISTRESS OBSERVED. AROUSABLE TO VERBAL STIMULI. CALL LIGHT WITHIN REACH. WILL CONTINUE TO MONITOR
[2018-09-14 05:28] VITALS: BP 133/61
--- NOTE | 2018-09-14 06:40 | NUR ---
DR. MICHELLE AT BEDSIDE TO ASSESS PT'S L FOOT AMPUTATION STUMP. NO FOUL ODOR NOTED. SMALL OPEN WOUND NOTED WITH MILD PURLUENT DRAINAGE. REDRESSED PER DR. MICHELLE. CLEANSED AND IODINE APPLIED. DRESSING WITH OIL EMULSION, GAUZE, AND ANJU WRAP. PT DENIES PAIN AND TOLERATED WELL. CALL LIGHT WITHIN REACH. WILL CONTINUE TO MONITOR
[2018-09-14 06:46] LABS: BASOPHIL % 0.8 % (0-2); PLATELET COUNT 299 x10^3mcL (130-400)
[2018-09-14 07:14] LABS: RED CELL DISTRIBUTION WIDTH 17.3 % (11.5-14.5)
[2018-09-14 07:16] LABS: CALCIUM 8.1 mg/dL (8.5-10.1); CARBON DIOXIDE 24.7 mmol/L (21-32); CREATININE SERUM 2.9 mg/dL (0.6-1.0); PHOSPHOROUS 6.7 mg/dL (2.5-4.9); POTASSIUM SERUM 4.6 mmol/L (3.5-5.1)
--- NOTE | 2018-09-14 08:05 | NUR ---
RECEIVED REPORT FROM LAB R/T BUN RESULT AT 70, PT ON FLUID RESTRICTION 1,000ML/24 HOURS PER PT CURRENT MEDICAL CONDITION, PAGED AND MADE AWARE, CHARGE NURSE JARED DUNLAP, NNO AT THIS TIME, ALL NEEDS ADDRESSED, CONTINUE TO MONITOR
--- NOTE | 2018-09-14 08:45 | NUR ---
MOTHER CALLED AND GOT UPDATED OF PT CURRENT MEDICAL CONDITION AFTER PT CALLED AND TALKED TO MOTHER ON PHONE APPROXIMATELY 15 MINS AGO, MOTHER SAID WILL COME TO VISIT PT AT NOON OR AROUND LUNCH TIME, PT AWARE OF MOTHER'S MESSAGE, RESTING IN BED W/ EYES CLOSED, IN NO APPARENT DISTRESS, CONTINUE TO MONITOR
[2018-09-14 09:19] VITALS: BP 129/63
--- NOTE | 2018-09-14 09:27 | NUR ---
RECEIVED PT IN BED, AXOX4, VERBAL, AMERICAN, CALM AND COPPERATIVE W/ POC AT THIS TIME, NICKY, (R) EYE BLIND, NO FACIAL DROOP/SLURRED SPEECH, NO REDNESS/DRAINAGE, REPORTED NO PAIN/CP/PRESSURE, DENIED N/V/D/DIZZINES, NO REDNESS/DRAINAGE, ON MAXIMIZER AT 4L/MIN, 95% AT THIS TIME, IN NO ACUTE RESP DISTRESS, CHEST RISE SYMMETRICALLY, ABD ROUND AND NONTENDER TO TOUCH, BS ACTIVE X 4, LAST BM THIS AM 09/14/18, ABD SOFT, PT ON MENSTRUAL PERIOD, PAD CHANGED THIS AM AFTER URINATION, CONTINENT, FLUID RESTRICTION 1000ML/24 HOURS, (L) FOOT AMBUTATION, DRESSING C/D/I, ABLE TO MOVE ALL EXTREMITIES, FALL RISK, NEED ASSISTANCE OOB AND BRP, SKIN D/W/C, BLANCABLE REDNESS TO COCCYX AREA, BLE SELF-INFLICTED SCRATCHES, PALP PULSES, CAP REFILL < 2 SECS, ALL NEEDS MET, BED AT LOW POSITION, CALL LIGHT IN REACH, RAILS X 2, CONTINUE TO MONITOR
--- NOTE | 2018-09-14 09:41 | NUR ---
PT IN BED, IN NO ACUTE RESP DISTRESS, AM MEDS GIVEN PER MD ORDER VIA EMAR, TAKEN WELL, NO ASE NOTED AT THIS TIME, AL NEEDS MET, SAFETY PROTOCOL FOLLOWED, CONTINUE TO MONITOR
--- NOTE | 2018-09-14 10:18 | NUR ---
ON MAXYMIZER AT 3L/MIN AT CURRENT TIME, O2 SAT AT 95%, TOLERATED WELL, PT IN NO ACUTE RESP DISTRESS, SITTING IN BED, SAFETY PROTOCOL FOLLOWED, CONTINUE TO MONITOR
--- NOTE | 2018-09-14 13:07 | NUR ---
PT SLEEPING IN BED, IN NO ACUTE RESP DISTRESS, VISITED BY MOTHER, MOTHER SAID WILL BE BACK WHEN PT AWAKE, SAFETY PROTOCOL FOLLOWED, CONTINUE TO MONITOR
--- NOTE | 2018-09-14 13:58 | NUR ---
PT IN BED, AXOX4, CONSUMED LUNCH, 100%, AWARE THAT MOTHER WILL VISIT IN THE AFTERNOON, NON-COMLIANCE WITH [facility] DIET AND FLUID RESTRICTION ORDER, PT AWARE OF THE IMPORTANCE OF FOLLOWING DM DIET AND FLUID RESTRICTION, VERBALLY UNDERSTANDING, ALL NEEDS ADDRESSED, CONTINUE TO MONITOR
--- NOTE | 2018-09-14 15:29 | NUR ---
PT AWARE ORDER FOR OB STOOL, WILL NOTIFY NURSING STAFF WHEN HAVING BM, PT VOIDED X 1, NO BM NOTED AT THIS TIME, WILL CONTINUE TO MONITOR AND ENDORSE
[2018-09-14 17:45] VITALS: BP 136/62
--- NOTE | 2018-09-14 18:01 | NUR ---
PT IN BED, RESTING WITH EYE CLOSED, AXOX4, IN NO ACUTE RESP DISTRESS, VERBAL, RESP EVEN AND ON-LABORED, ON MAXYMIZER AT 3L/MIN, TOLERATED WELL, O2 SAT AT 95%, CHEST RISE SYMMETRICALLY, ABD ROUND AND NON-TENDER TO TOUCH, BS ACTIVE X 4, DENIED PAIN/PRESSURE/CP, REFUSED N/V/D/DIZZINESS, ABLE TO MOVE ALL EXTREMITIES, (L) FOOT AMBUTATION W/ STUMP, VISITED BY DR WONG [employer] PROFILER, PICTURES TAKEN DURING DRESSING CHANGED BY DR WONG KEPT IN PT CHART, DRESSING C/D/I, SKIN D/W/C, PALP PULSES, CAP REFILL < 2 SECS, IV PATENT AND NO INFILTRATION NOTED, ALL NEEDS ADDRESSED AT THIS TIME, CALL LIGHT IN REACH, BED AT LOW POSITION, RAILS X 2, WILL ENDORSE TO ONCOMING RN
--- NOTE | 2018-09-14 18:42 | NUR ---
PT HAD NO BM SINCE ORDER REQUESTED UNTIL AT THIS TIME, PT AWARE STOOL NEEDED TO BE COLLECTED FOR LAB PURPOSE, WILL CONTINUE TO MONITOR AND ENDORSE TO ONCOMING RN TO COLLECT STOOL FOR OCCULT BLOOD WHEN AVAILABLE
[2018-09-14 20:47] VITALS: BP 114/60
--- NOTE | 2018-09-14 21:20 | NUR ---
SPOKE TO DR. FAULKNER. MADE AWARE OF PHOS 6.7 WITHOUT COVERAGE. ALSO MADE AWARE OF MISSED PROCRIT ON SATURDAY.
--- NOTE | 2018-09-14 22:50 | NUR ---
PT AWAKE AND IRRITATED. ASKING FOR ATIVAN. MEDICATED PT WITH ATIVAN PRN. WILL CONTINUE TO MONITOR.
--- NOTE | 2018-09-14 23:50 | NUR ---
RECIEVED PT FROM DAY NURSE. PT RESTING IN BED. FIANCE AT BEDSIDE. PT AO X4, AGITATED BUT COOPERATIVE. PALPABLE PULSES, NO EDEMA NOTED. BREATHING EVEN AND UNLABORED ON 3L OXYMISER, DENIES SOB. BOWEL SOUNDS ACTIVE X4, NO TENDERNESS TO PALPATION. L FOOT DRESSING CDI. LFA IV CDI. BED AT LOWEST POSITION. CALL LIGHT WITHIN REACH. WILL CONTINUE TO MONITOR.
--- NOTE | 2018-09-15 | NUR ---
PT RESTING IN BED WITH EYES CLOSED. NO S/S OF PAIN AT THIS TIME. BREATHING EVEN AND UNLABOREED. BED AT LOWEST POSITION. CALL LIGHT WITHIN REACH. WILL CONTINUE TO MONITOR.
--- NOTE | 2018-09-15 03:06 | NUR ---
PT AWAKE AND IRRITATED. ASKING FOR ATIVAN. MEDICATED PT WITH PRN ATIVAN. WILL CONTINUE TO MONITOR.
--- NOTE | 2018-09-15 05:35 | NUR ---
I HAVE REVIEWED THE DATA COLLECTION BY MAGAN COVINGTON: LENNY MUÑOZ ENTERED ON 09/14-09/15 I CONCUR WITH THE DATA AND ANY EXCEPTIONS OR COMMENTS ARE LISTED BELOW:
[2018-09-15 06:13] VITALS: BP 141/64
[2018-09-15 06:33] LABS: BASOPHIL % 0.7 % (0-2); PLATELET COUNT 314 x10^3mcL (130-400)
[2018-09-15 06:52] LABS: CALCIUM 8.3 mg/dL (8.5-10.1); CARBON DIOXIDE 24.7 mmol/L (21-32); CREATININE SERUM 2.9 mg/dL (0.6-1.0); POTASSIUM SERUM 4.8 mmol/L (3.5-5.1)
--- NOTE | 2018-09-15 06:52 | NUR ---
PT RESTING IN BED COMFORTABLY. NO S/S OF PAIN AT THIS TIME. BREATHING EVEN AND UNLABORED. NO SIGNIFICANT CHANGES THIS SHIFT. BED AT LOWEST POSITION. CALL LIGHT WITHIN REACH. WILL ENDORSE TO DAY NURSE.
[2018-09-15 06:59] LABS: RED CELL DISTRIBUTION WIDTH 17.1 % (11.5-14.5)
--- NOTE | 2018-09-15 07:30 | NUR ---
PATIENT IS IN BED, BED IS TO THE LOWEST POSITION. PATIENT IS ON 3 L OXYIMIZER. PATIENT IS BREATHING ADEQUATELY WITH NO SIGNS OF RESPIRATORY DISTRESS. PATIENT HAS IV ACCESS NOTED TO LAC, SALINE LOCKED. PATIENT HAS L FOOT AMPUTATION NOTED. AND WRAPPED. PATIENTS HEELS ARE OFF LOADED WITH PILLOWS. CALL LIGHT IS WITHIN REACH. PATIENT STABLE, WILL CONTINUE TO MONITOR.
[2018-09-15 08:00] VITALS: BP 117/60
[2018-09-15 08:54] VITALS: BP 117/60
[2018-09-15 17:51] VITALS: BP 139/56
--- NOTE | 2018-09-15 18:29 | NUR ---
PATIENT IN BED SLEEPING AT THIS TIME. NO SIGNS OF DISTRESS. IV SITE SALINE LOCKED AT THIS TIME. WILL ENDORSE REPORT TO ONCOMING RN.
--- NOTE | 2018-09-15 19:20 | NUR ---
RECIEVED PT IN NO ACUTE DISTRESS. AOX4. MED SURG. BREATHING E/U ON OXYMIZER @ 3L, IV TO LFA. BED IN LOWEST POSITION, 2 SIDE RAILS UP, CALL LIGHT IN REACH. INSTRUCTED TO CALL FOR ASSISTANCE.
[2018-09-15 20:44] VITALS: BP 124/60
--- NOTE | 2018-09-16 00:36 | NUR ---
RESTING WITH EYES CLOSED. BREATHING E/U. NO ACUTE DISTRESS NOTED. WILL CONTINUE TO MONITOR.
[2018-09-16 05:40] VITALS: BP 131/52
--- NOTE | 2018-09-16 06:08 | NUR ---
IV TO LFA TENDER. NEW ACCESS ESTABLISHED TO RFA. DENIES SOB AT THIS TIME, ON OXYMIZER @ 3L. NO ACUTE DISTRESS NOTED. WILL ENDORSE TO ONCOMING RN.
--- NOTE | 2018-09-16 07:20 | NUR ---
RECIEVED PT FROM NIGHT NURSE. PT IS LAYING DOWN IN BED WITH HOB UP RESTING WITH EYES CLOSED. PT LOOKS TO BE IN NO ACUTE DISTRESS AT THIS TIME. RESPRIATIONS EVEN AND UNLABORED ON 3L OXYMIZER. IV SITE PATENT WITH NO SIGNS OF ERYTHEMA OR SWELLING. DRESSING TO LEFT LOWER EXTREMITY IS CDI. BED IN LOWEST POSITION, CALL LIGHT WITHIN REACH. WILL CONTINUE TO MONITOR.
[2018-09-16 07:42] LABS: CALCIUM 8.5 mg/dL (8.5-10.1); CARBON DIOXIDE 24.4 mmol/L (21-32); CREATININE SERUM 2.8 mg/dL (0.6-1.0); MAGNESIUM 2.2 mg/dL (1.8-2.4); PHOSPHOROUS 6.1 mg/dL (2.5-4.9); POTASSIUM SERUM 4.5 mmol/L (3.5-5.1)
[2018-09-16 07:47] LABS: BASOPHIL % 0.7 % (0-2); PLATELET COUNT 312 x10^3mcL (130-400)
[2018-09-16 07:53] LABS: RED CELL DISTRIBUTION WIDTH 17.5 % (11.5-14.5)
[2018-09-16 08:45] VITALS: BP 108/49
--- NOTE | 2018-09-16 10:00 | NUR ---
PT IS LAYING DOWN IN BED WITH HOB UP RESTING WITH EYES CLOSED. PT EASILY AROUSABLE. WHEN PT AWAKED TO DO ASSESSMENT AND TO GIVE MORNING MEDICATIONS PT IS VERY AGITATED AND IS YELLING AT THE NURSE. ASKED THE PT IF AN ASSESSMENT CAN BE DONE, PT REFUSED ASSESSMENT AND STATED, "LEAVE ME ALONE, DO NOT TOUCH ME." ASKED PT IF I CAN GIVE MORNING MEDICATION AND PT STATED, "I DONT CARE, JUST KILL ME IF YOU WANT." WHEN ASKING PT FOR THE NAME AND DATE OF , PT YELLED SAYING, "WHAT PART OF LEAVE ME ALONE DO YOU NOT UNDERSTAND." PT GAVE NAME AND DATE OF AND TOOK MORNING MEDICATION BUT AGAIN REFUSED ASSESSMENT. CALL LIGHT AT BEDSIDE. WILL CONINTUE TO MONITOR.
--- NOTE | 2018-09-16 11:50 | NUR ---
WENT IN TO CHECK BLOOD SUGAR. PT LAYING DOWN IN PRONE POSITION WITH HEAD TURNED TO THE SIDE. PT ASKED TO TURN TO EXPOSE HAND IN ORDER TO CHECK BLOOD SUGAR AND PT POINTED FINGER OUT BUT REFUSED TO MOVE AND YELLED ASKING TO BE LEFT ALONE. ASKED PT IF IT IS OKAY TO CHECK BLOOD SUGAR AND PT YELLED, "I DON'T CARE, JUST DO IT." ASKED PT NAME AND DATE AND PT SCREAMED BACK SAYING NO. INFORMED PT OF THE NEED TO RESPOND WITH IDENTIFIER FOR SAFETY REASONS AND PT STILL SCREAMED "NO, LEAVE ME ALONE." PT OKAYED CHECKING BLOOD SUGAR AND GIVING INSULIN. BED IN LOWEST POSITION, CALL LIGHT WITHIN REACH. WILL CONTINUE TO MONITOR.
--- NOTE | 2018-09-16 12:20 | NUR ---
PT SCREAMING FOR THE NURSE STATING THAT SHE NEEDS THE BEDPAN. HELPED PT TO THE BEDPAN AND PT URINATED AND LOOKED TO HAVE NO ACTIVE MENSTRUAL BLEEDING. REPLACED NEW PAD AND PANTY. PT IS CRYING AND STATES THAT SHE DOES NOT WANT TO BE ALONE AND WANTS HER MOTHER TO BE HERE. ASKED PT IF SHE WOULD LIKE TO NURSE TO CALL MOTHER AND PT SAID CRYING, "NO, IF SHE WANTS TO BE HERE THEN SHE WOULD BE HERE, DO NOT CALL HER." PT IS CRYING AND IS ASKING FOR HER ATIVAN. INFORMED PT THAT LUNCH WILL BE COMING. CALL LIGHT WITHIN REACH. MADE PT COMFORTABLE IN BED AND PT IS NOW RESTING WITH HOB UP AND EYES CLOSED. WILL CONTINUE TO MONITOR.
[2018-09-16 12:33] VITALS: BP 153/65
--- NOTE | 2018-09-16 15:03 | NUR ---
PHYSICAL THERAPY NOTE ATTEMPTED FOR PHTSICAL THERAPY EVAL, PATIENT REFUSED. VICENTE CARRERO AWARE. TO BE SEEN TOMORROW
[2018-09-16 16:22] VITALS: BP 116/51
--- NOTE | 2018-09-16 18:50 | NUR ---
PT IS LAYING DOWN IN BED WITH HOB UP RESTING WITH EYES CLOSED. PT LOOKS TO BE IN NO ACUTE DISTRESS AT THIS TIME. RESPIRATIONS EVEN AND UNLABORED ON 3L OXYMIZER. IV SITE PATENT WITH NO SIGNS OF ERYTHEMA OR SWELLING. DRESSING TO LEFT FOOT IS CDI. BED IN LOWEST POSITION, CALL LIGHT WITHIN REACH. WILL ENDORSE TO ONCOMING SHFIT.
--- NOTE | 2018-09-16 19:10 | NUR ---
RECEIVED REPORT FROM DAY SHIFT RN, ALL QUESTIONS AND CONCERNS ADDRESSED. PT IN RM 252 BED A. PT IS A/O X3, SPEECH IS CLEAR AND FOLLOWS COMMANDS. EYES OPEN SPONTANEOUSLY AND PUPILS REACT BRISK TO LIGHT. CHEST RISE AND FALL EQUAL AND UNLABORED. PT IS ON 3LPM VIA OXYMIZER. LS WHEEZES BILATERAL. VS STABLE. BED IN THE LOWEST POSITION AND CALL LIGHT WITHIN REACH.
--- NOTE | 2018-09-16 20:51 | NUR ---
PT AMBULATED TO RESTROOM WITH MAX ASSIST WITH MOTHER AND PBX TECHNICIAN
[2018-09-16 21:07] VITALS: BP 142/65
--- NOTE | 2018-09-17 03:36 | NUR ---
RECEIVED REPORT FROM SIDDHARTHA CARRERO FOR CONTINUATION OF CARE. PATIENT RESTING IN BED, RESPIRATION EVEN AND UNLABORED, ON O2 3L OXYMIZER. NO SIGN OF ANY DISCOMFORT AT THIS TIME. WILL CONTINUE TO MONITOR.
--- NOTE | 2018-09-17 04:20 | NUR ---
PATIENT ANXIOUS, REQUESTED FOR ATIVAN. ATIVAN 1 MG IVP GIVEN ORDERED. WILL CONTINUE TO MONITOR.
--- NOTE | 2018-09-17 05:45 | NUR ---
PATIENT ASLEEP IN BED. RESPIRATION EVEN AND UNLABORED, ON 3L OXYMIZER. IV SITE TO RIGHT FOREARM PATENT AND INTACT. ASSISTED WITH NEEDS AND AMBULATION. SAFETY OBSERVED. PLACED BED IN THE LOWEST POSITION. PLACED CALL LIGHT WITHIN REACH AT ALL TIMES.
[2018-09-17 05:52] VITALS: BP 137/60
--- NOTE | 2018-09-17 07:04 | NUR ---
RECEIVED PT FROM MARY CARRERO, PT SLEEPING IN BED, IN NO ACUTE DISTRESS
[2018-09-17 07:06] LABS: BASOPHIL % 0.5 % (0-2); PLATELET COUNT 321 x10^3mcL (130-400)
[2018-09-17 07:15] LABS: CALCIUM 8.2 mg/dL (8.5-10.1); CREATININE SERUM 2.7 mg/dL (0.6-1.0); POTASSIUM SERUM 4.8 mmol/L (3.5-5.1)
--- NOTE | 2018-09-17 07:15 | NUR ---
RECEIVED PT IN BED, AXOX4, VERBAL, GREENLANDIC, YELLING AND ANXIOUS AT THIS TIME, PT REQUESTED NICKY KEENAN, (R) EYE BLIND, NO FACIAL DROOP/SLURRED SPEECH, NO REDNESS/DRAINAGE, REPORTED NO PAIN/CP/PRESSURE, DENIED N/V/D/DIZZINES, ON MAXIMIZER AT 3L/MIN, 95% AT THIS TIME, IN NO ACUTE RESP DISTRESS, CHEST RISE SYMMETRICALLY, ABD ROUND AND NONTENDER TO TOUCH, BS ACTIVE X 4, ABD SOFT, CONTINENT, FLUID RESTRICTION 1000ML/24 HOURS, (L) FOOT AMBUTATION, DRESSING C/D/I, ABLE TO MOVE ALL EXTREMITIES, FALL RISK, SKIN D/W/C, PALP PULSES, CAP REFILL < 2 SECS, ALL NEEDS MET, BED AT LOW POSITION, CALL LIGHT IN REACH, RAILS X 2, CONTINUE TO MONITOR
[2018-09-17 07:48] LABS: RED CELL DISTRIBUTION WIDTH 16.8 % (11.5-14.5)
--- NOTE | 2018-09-17 08:49 | NUR ---
SEEN BY NEPROLOGIST FOR UPDATED CONDITION AND POSSIBLE D/C PLAN IF CLEARANCE W/ MEDICAL , NNO AT THIS TIME, PT MADE AWARE, VERBALLY UNDERSTANDING, CONTINUE TO MONITOR
[2018-09-17 09:43] VITALS: BP 110/72
[2018-09-17 10:05] VITALS: BP 110/72
--- NOTE | 2018-09-17 11:57 | NUR ---
PT HAD NOT HAVE BM AT THIS TIME, UNABLE TO OBTAIN STOOL OB PER MD ORDER, PT AWARE STOOL WILL BE COLLECTED FOR LAB PURPOSE, VERBALLY UNDERTSNAING THAT WILL NOTIFY NURSING STAFF WHEN EXPERIENCING BM, ALL NEEDS MET AT THIS TIME, CONTINUE TO MONITOR
--- NOTE | 2018-09-17 12:34 | NUR ---
PT RESTING IN BED W/ EYES CLOSED, IN NO ACUTE RESP DISTRESS, PT MADE AWARE OF D/C HOME ORDER W/ HH AND PT, VERBALLY UNDERTSANING, MOTHER CALLED AND MADE AWARE, SAID WILL TOP AND SEAT COVER FITTER PT AFTER THE LAST DOSE OF IV ANTIBIOTIC, ALL NEEDS MET AT THIS TIME, CONTINUE TO MONITOR
[2018-09-17 13:34] VITALS: BP 118/67
--- NOTE | 2018-09-17 13:39 | NUR ---
PT IN BED, 100%, YELLING AND CRYING, REQUESTED ATIVAN, ATIVAN 1MG IVP GIVEN PER MD PRN ORDER VIA EMAR, TAKEN WELL, NO ASE NOTED AT THIS TIME, PT IN NO ACUTE RESP DISTRESS, CONTINUE TO MONITOR
--- NOTE | 2018-09-17 14:13 | NUR ---
UTILITY TECH UNABLE TO GIVE DM DIET EDUCATION TO PT D/T PT WAS SLEEPING, APPRACHED X 2 TIMES, UNSUCCESSFUL, DIET EDUCATION PACKAGE GIVE TO RN TO PUT IN D/C PACKAGE AND WILL EDUCATE PT DURING DISCHARGE. ALL NEEDS MET AT THIS TIME, CONTINUE TO MONITOR
--- NOTE | 2018-09-17 15:02 | NUR ---
PT IN BED, IN NO ACUTE RESP DISTRESS, DENIED PAIN/CP/PRESSURE, DENIED N/V/D, MOTHER AT BEDSIDE, PT REFUSED TO SIGN DC PAPER, MOTHER SIGNED DC PAPER, EDU R/T DIET, MED, SIDE EFFECT, BS MONITOR AND F/U APPOIMENT AND WOUND MANAGEMENT GIVEN, VERBALLY UNDERSTANDING, IV REMOVED, IV CATH TIP INTACT, NO ACTIVE BLEEDING NOTED, DC PAPER SIGNED AND KEPT IN CHART, COPY GIVEN TO MOTHER, PT ASSISTED TO LOBBY BY NURSING STAFF USING WC IN NO ACUTE DISTRESS
--- NOTE | 2018-09-17 15:03 | NUR ---
Initial Nutrition Assessment: 252/A ARSENIO BRUNSON MR Dx: Respiratory distress, COPD PMHx: CHF, HTN, DM, hyperlipidemia, CKD stage 4 and anemia, alcoholism PSHx: Appendectomy, Cataract Removal, Laser eye surgery Breast reconstruction, Amputation Lf foot May 2015 Labs: BG 290H, BUN 76H, CREAT 2.7H, CA 8.2L, HGB 7.5L, A1C 6.4H Meds: Ativan, Colace, coreg, D50%, humulin, Lipitor, mucinex, Zofran, heparin Diet: CCHO PO Intake: (09/17) breakfast 100%, (09/16) lunch 100%, breakfast 80%, (09/15) 100% Ht: 157.48cm (62") Wt: 72.6 kg (159#) BMI: 29.3 kg/m2 Bed scale: 73 kg IBW: 110# (50 kg) %IBW: 144 UBW: unable to access Age: 48/F Food Allergies: NKFA Skin: foot stump R/T amputation Raymundo: 16 Edema: none GI: Last BM: 09/14 Per H&P, Pt is a 48 yo female with PMHx of CHF, HTN, DM, hyperlipidemia, CKD stage 4 and anemia was brought in by EMS for evaluation of a 3 day history of progressively worsening shortness of breath. The patient had her left foot amputated June 10 and was resting at home when the shortness of breath started. RDN Visit (09/17): Patient was sleeping both the times I attempted to meet her. Per MAGAN Mccord, patient is very agitated when she wakes up. She also mentioned that patient has been asking for snacks all the time especially during night time and is non-complaint with her diet as well as fluid restriction. Per RN Suri, patient is on 1000 ml/day fluid restriction. [facility] handout on CKD/DM diet education handout was given to MAGAN Mccord, she would give to the patient. Problem with: N/V/D/C: none per RN Problems with: Chewing/Swallowing: none Current appetite: good per RN Recent wt change: unable to access %wt change: N/A Vitamin/Supplement use: unable to access Special diet at home: unable to access Physical activity: unable to access Nutrition education given: Not appropriate at this time as patient was sleeping. Food-drug interactions: Colace- high fiber w/0380-7156 ml fluids Education given: no Estimated Nutritional Needs Based on current body weight 72.6 kg Energy: 4608-5744 kcal/d (25-30 kcal/kg) Protein: 73-58 g/d (0.6-0.8 g/kg) - not on HD Fluid: per doctor Nutrition Diagnosis 1. Impaired nutrient utilization related to renal and endocrine dysfunction as evidenced by elevated BUN:76, CREAT:2.7, A1C : 6.4H Intervention 1. Recommend Renal (CCHO) diet. 2. DM/CKD diet education handout provided. Monitor/Evaluate Goal: PO intake at least 75% of estimated needs Monitor: PO intake, Labs, GI function F/U in 3-5 days as moderate risk
--- NOTE | 2018-09-17 15:05 | NUR ---
1. Recommend Renal (CCHO) diet. 2. DM/CKD diet education handout provided.
--- NOTE | 2018-09-17 15:13 | NUR ---
PIC OF (L) STUMP INCISION TAKEN AND KEPT IN CHART FOR DISCHARGE POLICY PURPOSE
--- NOTE | 2018-09-18 08:24 | NUR ---
WOUND CARE CONSULT NOT DONE. PT. DISCHARGED.
== END 2018-09-17 15:13 | disposition home health service (06) | DRG 133 ==
LOC: ED 09:55 → DU 12:16 → EDBEDREQ 12:17 → DU 13:00 → MU 09-12 15:00
PROVIDERS: Emergency Medicine; Internal Medicine Nephrology; ADMIT Internal Medicine
DX: J96.01 Acute respiratory failure with hypoxia (principal); E43 Unspecified severe protein-calorie malnutrition; I50.33 Acute on chronic diastolic (congestive) heart failure; J18.9 Pneumonia, unspecified organism; D72.1 Eosinophilia; E11.21 Type 2 diabetes mellitus with diabetic nephropathy; N17.9 Acute kidney failure, unspecified; N18.4 Chronic kidney disease, stage 4 (severe); E11.22 Type 2 diabetes mellitus with diabetic chronic kidney disease; I13.0 Hypertensive heart and chronic kidney disease with heart failure and stage 1 through stage 4 chronic kidney disease, or unspecified chronic kidney disease; D63.1 Anemia in chronic kidney disease; F15.10 Other stimulant abuse, uncomplicated; E78.5 Hyperlipidemia, unspecified; F17.210 Nicotine dependence, cigarettes, uncomplicated; D63.8 Anemia in other chronic diseases classified elsewhere; H33.21 Serous retinal detachment, right eye; T50.2X5A Adverse effect of carbonic-anhydrase inhibitors, benzothiadiazides and other diuretics, initial encounter; Y92.89 Other specified places as the place of occurrence of the external cause; Z68.29 Body mass index [BMI] 29.0-29.9, adult; Z79.84 Long term (current) use of oral hypoglycemic drugs; Z88.8 Allergy status to other drugs, medicaments and biological substances; Z98.41 Cataract extraction status, right eye; Z98.42 Cataract extraction status, left eye; Z88.5 Allergy status to narcotic agent; Z90.49 Acquired absence of other specified parts of digestive tract; Z91.14 Patient's other noncompliance with medication regimen; Z89.432 Acquired absence of left foot; Z86.711 Personal history of pulmonary embolism
CPT/HCPCS: 82962; 83880; 94150; 97116-GP; G0378; J0885-EC; J1644; J1940; J1956; J2060; J3490; J7050; J7620; Q0092

== ENCOUNTER 2018-10-07 17:02 | Inpatient (IN) | payer OTHER ==
[~2018-10-07] VITALS: Ht 157.5 cm; Wt 71.0 kg
[2018-10-07 17:02] VITALS: Ht 157.5 cm; Wt 71.0 kg
[~2018-10-07 17:02] MED LIST changes: +ZIA10
--- NOTE | 2018-10-07 18:11 | NUR ---
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 PER PT SHE STOPPED SMOKING ONE YEAR AGO. PT AAOX4 NO DISTRESS LUNGS CTA NO DISTRESS. INCREASED SOB WITH EXERTION. PT GOWNED ON FULL CM 02 @ 2L VIA NC DUE TO LOW O2 SAT 92% ON RA. PT FAMILY AT BEDSIDE AWAITING FURTHER MD ORDERS. WILL MONITOR
[2018-10-07 18:33] LABS: BASOPHIL % 0.6 % (0-2); PLATELET COUNT 323 x10^3mcL (130-400)
[2018-10-07 18:37] LABS: RED CELL DISTRIBUTION WIDTH 15.4 % (11.5-14.5)
[2018-10-07 18:38] LABS: CALCIUM 8.3 mg/dL (8.5-10.1); CARBON DIOXIDE 18.5 mmol/L (21-32); CREATININE SERUM 2.4 mg/dL (0.6-1.0); POTASSIUM SERUM 4.7 mmol/L (3.5-5.1)
[2018-10-07 18:43] LABS: BILIRUBIN TOTAL 0.5 mg/dL (0.20-1.00); TOTAL PROTEIN, SERUM 7.5 g/dL (6.4-8.2)
--- NOTE | 2018-10-07 19:10 | NUR ---
REPORT GIVEN TO SUGAR CARRERO RESUMING CARE OF PT AT THIS TIME
--- NOTE | 2018-10-07 19:57 | NUR ---
PT MEDICATED PER EMAR, PT RESTING IN A POSITION OF COMFORT. AOX4, RESP EVEN AND UNLABORED, NO ACUTE DISTRESS NOTED.
--- NOTE | 2018-10-07 20:02 | NUR ---
PT UNSURE OF DOSES OF HOME MEDICATIONS.
--- NOTE | 2018-10-07 20:11 | NUR ---
PT RECEIVED DISCHARGE INSTRUCTIONS AND RX FOR IBUPROFEN. PT EDUCATED ON S/S OF ADVERSE EFFECTS AND PT VERBALIZED UNDERSTANDING. PT AOX4, RESP EVEN AND UNLABORED, NO ACUTE DISTRESS NOTED. PT VERIFIED ID ON DISCHARGE PAPERS. PT AMBULATED OUT OF ED WITH STEADY GAIT.
[2018-10-07 20:14] LABS: CHOLESTEROL/HDL RATIO 2.2
--- NOTE | 2018-10-07 20:21 | NUR ---
PT REPORT CALLED TO MARY CARRERO TO ASSUME PT CARE.
--- NOTE | 2018-10-07 20:30 | NUR ---
PT TRANSFERRED TO [facility] BY [facility] BY XOCHITL NEGRO AND LEISA CARRERO. PT ON CM FOR TRANSFER. PT ACCEPTED BY MARY CARRERO TO ASSUME PT CARE. PT AOX4, RESP EVEN AND UNLABORED, NO ACUTE DISTRESS NOTED.
[2018-10-07 21:14] VITALS: BP 141/69
--- NOTE | 2018-10-07 21:34 | NUR ---
RECEIVED PT FROM ER, PT ADMIT FOR CHEST PAIN NON STEMI, CHF, PT IS A/O X4, VERBAL RESPONSIVE, RIGHT EYE BLIND, LEFT EYE POOR VISION, LUNG SOUND CLEAR BIALTERAL, NO COUGH, NO SOB, PT IS ON 2L/MIN O2 VIA NC. PO 98%. PT IS ON TELE 5, NSR, DENY ANY CHEST PAIN AT THIS MOMENT. BOWEL SOUND PRESENT ALL 4 QUADRANTS, NO DISTENTION, NO TENDER. PEDAL PULSE PRESENT AT RIGTH FOOT. LEFT FOOT AMPUTATION. THERE IS OPEN WOUND AT LEFT FOOT. CDI, IV AT LEFT AC, NO LEAKING, NO INFILTRATION. ALL ADLS ASSIST, ALL NEED MET, CALL LIGHT IN REACH, WILL CONTINUE TO MONITOR.
--- NOTE | 2018-10-07 21:35 | NUR ---
SPOT CHECK BLOOD SUGAR= 141 MG/DL.
--- NOTE | 2018-10-07 23:07 | NUR ---
PATIENT REQUESTED SOMETHING FOR ANXIETY AND SLEEP. ATIVAN 0.5 MG PO GIVEN AT 2237 ORDERED. WILL CONTINUE TO MONITOR.
[2018-10-08] VITALS: BP 141/69
--- NOTE | 2018-10-08 01:42 | NUR ---
PATIENT VERBALIZED SHE CAN'T SLEEP, SHE NEEDS MORE MEDICATION. ATIVAN 1 MG IVP GIVEN ORDERED. WILL CONTINUE TO MONITOR.
--- NOTE | 2018-10-08 02:30 | NUR ---
DR JARQUIN MADE AWARE OF LATEST TROPONIN LEVEL 0.213
--- NOTE | 2018-10-08 06:10 | NUR ---
PATIENT RESTING IN BED. RESPIRATION EVEN AND UNLABORED, ON O2 2L PER NASAL CANNULA. DENIES PAIN AT THIS TIME. ASSISTED WITH NEEDS. SAFETY OBSERVED. PLACED BED IN THE LOWEST POSITION. PLACED CALL LIGHT WITHIN REACH AT ALL TIMES.
[2018-10-08 06:57] LABS: BASOPHIL % 0.9 % (0-2); PLATELET COUNT 285 x10^3mcL (130-400)
[2018-10-08 07:11] LABS: CALCIUM 8.2 mg/dL (8.5-10.1); CARBON DIOXIDE 20.8 mmol/L (21-32); CREATININE SERUM 2.4 mg/dL (0.6-1.0); MAGNESIUM 1.9 mg/dL (1.8-2.4); PHOSPHOROUS 5.9 mg/dL (2.5-4.9); POTASSIUM SERUM 4.7 mmol/L (3.5-5.1)
[2018-10-08 07:13] LABS: RED CELL DISTRIBUTION WIDTH 15.4 % (11.5-14.5)
--- NOTE | 2018-10-08 07:35 | NUR ---
RECEIVED PT IN NO ACUTE DISTRESS. SLEEPING BUT EASILY AROUSABLE. BREATHING EVEN AND UNLABORED ON 2L NC. NO PAIN NOTED. NSR ON TELE #5. IV TO LAC, NO REDNESS OR SWELLING NOTED. WHEELCHAIR BOUND. L FOOT AMPUTATED, DRESSING TO L FOOT C/D/I. FALL PRECAUTIONS. BED IN LOW POSITION, CALL LIGHT WITHIN REACH. WILL CONTINUE TO MONITOR.
[2018-10-08 08:04] VITALS: BP 113/60
[2018-10-08 08:56] VITALS: BP 113/60
--- NOTE | 2018-10-08 11:47 | NUR ---
PATIENT IN NO ACUTE DISTRESS. SLEEPING BUT AROUSABLE. BREATHING EVEN AND UNLABORED ON 2L NC. NO C/O PAIN. IV TO LAC WITH NO REDNESS OR SWELLING. FALL PRECAUTIONS IN PLACE. PHYSICAL THERAPY AT BEDSIDE TO EVALUATE PATIENT. WILL CONTINUE TO MONITOR.
[2018-10-08 12:08] VITALS: BP 114/48
[2018-10-08 12:15] LABS: AMPHETAMINE QUAL UR NONE DETECTED (See below)
[2018-10-08 12:26] LABS: UA SPECIFIC GRAVITY 1.015 (1.005-1.035); microscopic required? YES; urine erythrocyte TRACE (NEGATIVE)
[2018-10-08 16:18] VITALS: BP 128/60
--- NOTE | 2018-10-08 16:47 | NUR ---
WOUND TO LEFT FOOT CLEANED WITH NS AND NEW ISLAND DRESSING APPLIED.
--- NOTE | 2018-10-08 17:01 | NUR ---
PT FREQUENTLY GETTING OUT OF BED AND AMBULATING IN THE HALLWAYS. GAIT SLIGHTLY UNSTEADY. PT ASSISTED BACK TO BED AND RE-EDUCATED REGARDING FALL PRECAUTIONS. PT VERBALIZED UNDERSTANDING. PT ALSO GIVEN SANDWICH AND MILK REQUESTED. CALL LIGHT WITHIN REACH. WILL CONTINUE TO MONITOR.
--- NOTE | 2018-10-08 18:13 | NUR ---
PT SITTING UP IN BED EATING DINNER. NO ACUTE DISTRESS. NO C/O CP OR PRESSURE. RESP EVEN AND UNLABORED ON 2L NC. PT GIVEN VANILLA PUDDING REQUESTED. IV TO LAC, NO REDNESS OR SWELLING. DRESSING TO R FOOT C/D/I. FALL PRECAUTIONS. BED IN LOW POSITION, CALL LIGHT WITHIN REACH. WILL ENDORSE TO ONCOMING SHIFT.
--- NOTE | 2018-10-08 20:00 | NUR ---
RECEIVED PT IN BED,A/O X4. ABLE TO VERBALIZE NEEDS. HEADACHE/DIZZINESS. RESP. EVEN AND UNLABORED. LUNG SOUNDS CLEAR BILAT. 02 AT 2L/MIN VIA NC, DENIES SOB. NO ACUTE DISTRESS NOTED. SR ON THE MONITOR, DENIES CP OR ANY DISCOMFORT AT THIS TIME.HL TO LAC, INTACT AND PATENT. LT FOOT WOUND WITH ISLAND DRESSING, DRY AND INTACT. VOIDING FREELY. NEEDS ASSIST. WITH AMBULATION. CALL LIGHT WITHIN REACH. INSTRUCTED TO CALL FOR ASSIST. IF NEEDED. PT VERBALIZED UNDERSTANDING. WILL CONTINUE TO MONITOR.
[2018-10-08 20:43] VITALS: BP 115/56
--- NOTE | 2018-10-08 22:12 | NUR ---
REQUESTING ATIVAN FOR ANXIETY, DR JARQUIN MADE AWARE. ATIVAN 1MG IV GIVEN ORDERED. WILL CONTINUE TO MONITOR.
--- NOTE | 2018-10-08 23:29 | NUR ---
RESTING QUIETLY IN BED, NO COMPLAINTS NOTED AT THIS TIME. CALL LIGHT WITHIN REACH. WILL CONTINUE TO MONITOR.
--- NOTE | 2018-10-09 02:02 | NUR ---
RETING QUIETLY IN BED, WITH EYES CLOSED, APPEARS ASLEEP, EASILY AROUSABLE.RESP. EVEN AND UNLABORED. 02 AT 2L/MIN VIA NC. NO ACUTE DISTRESS NOTED. CALL LIGHT WITHIN REACH. WILL CONTINUE TO MONITOR.
--- NOTE | 2018-10-09 03:09 | NUR ---
AWAKE, REQUESTING AIIVAN FOR ANXIETY. DR JARQUIN NOTIFIED. ATIVAN IV ORDERED, MEDICATED ORDERED.WILL CONTINUE TO MONITOR.
[2018-10-09 05:35] VITALS: BP 107/68
--- NOTE | 2018-10-09 06:16 | NUR ---
DUE MEDS GIVEN ORDERED, KYLE. WELL. AGITATED AND ANXIOUS AT TIMES, ATIVAN IV GIVEN ORDERED. AFEBRILE AND VITAL SIGNS STABLE. RESP. EVEN AND UNLABORED. NO ACUTE DISTRESS NOTED. KEPT COMFORTABLE. CALL LIGHT WITHIN REACH. WILL CONTINUE TO MONITOR .
[2018-10-09 06:17] LABS: BASOPHIL % 1.1 % (0-2); PLATELET COUNT 274 x10^3mcL (130-400)
[2018-10-09 06:31] LABS: CALCIUM 8.1 mg/dL (8.5-10.1); CARBON DIOXIDE 19.7 mmol/L (21-32); CREATININE SERUM 2.7 mg/dL (0.6-1.0); MAGNESIUM 2.1 mg/dL (1.8-2.4); PHOSPHOROUS 6.3 mg/dL (2.5-4.9)
[2018-10-09 07:20] LABS: RED CELL DISTRIBUTION WIDTH 15.4 % (11.5-14.5)
--- NOTE | 2018-10-09 07:20 | NUR ---
RECEIVED PT RESTING IN BED. NO ACUTE DISTRESS. SLEEPING BUT EASILY AROUSABLE. RESP EVEN AND UNLABORED ON 2L NC. HOB SLIGHTLY ELEVATED. NO PAIN NOTED AT THIS TIME. IV TO LAC, NO REDNESS OR SWELLING NOTED. L FOOT AMPUTATED, DRESSING TO LEFT FOOT C/D/I. FALL PRECAUTIONS IN PLACE. BED ALARM ON. BED IN LOW POSITION, CALL LIGHT WITHIN REACH. WILL CONTINUE TO MONITOR.
[2018-10-09 09:00] VITALS: BP 108/42
--- NOTE | 2018-10-09 09:59 | NUR ---
PT REPEATEDLY GETTING OUT OF BED. ATTEMPTED TO RE-EDUCATE PT REGARDING FALL RISKS. PT STATED "I WON'T FALL, I JUST WANT TO WALK OUTSIDE." PT'S GAIT UNSTEADY. BED ALARM ON. WILL CONTINUE TO MONITOR.
[2018-10-09] MEDS ORDERED: LASIX40 MG PO (11:24)
[2018-10-09] MEDS ORDERED: COR6 PO (11:26)
[2018-10-09] MEDS ORDERED: NATURAL IRON65 MG PO (11:43)
[2018-10-09 12:21] VITALS: BP 108/42
[2018-10-09 12:37] VITALS: BP 132/41
--- NOTE | 2018-10-09 12:44 | NUR ---
PT REFUSED TO HAVE WOUND TO LEFT FOOT CLEANED AND HAVE PICTURES TAKEN.
--- NOTE | 2018-10-09 13:29 | NUR ---
PT DISCHARGED TO HOME WITH HOME HEALTH SERVICES. NO ACUTE DISTRESS. AWAKE, ALERT, AND ORIENTED. VSS. RX GIVEN. DISCHARGE EDUCATION PROVIDED, PT AND PT'S MOTHER VERBALIZED UNDERSTANDING. INSTRUCTED PT FOLLOW UP WITH PCP AND HOME HEALTH SERVICES. IV DC'D WITH CATHETER INTACT. ISLAND DRESSING TO L FOOT, PT REFUSED TO HAVE WOUND TO LEFT FOOT CLEANED AND DRESSING CHANGED. BELONGINGS WITH PT. TRANSPORTED VIA WHEELCHAIR. MYKEL FISCHER ACCOMPANIED PT TO [facility].
== END 2018-10-09 13:28 | disposition home health service (06) | DRG 194 ==
LOC: ED 17:02 → DU 19:45
PROVIDERS: Emergency Medicine; ADMIT Internal Medicine
DX: I13.0 Hypertensive heart and chronic kidney disease with heart failure and stage 1 through stage 4 chronic kidney disease, or unspecified chronic kidney disease (principal); I21.A1 Myocardial infarction type 2; E43 Unspecified severe protein-calorie malnutrition; I50.33 Acute on chronic diastolic (congestive) heart failure; E11.22 Type 2 diabetes mellitus with diabetic chronic kidney disease; N18.4 Chronic kidney disease, stage 4 (severe); F15.21 Other stimulant dependence, in remission; D64.9 Anemia, unspecified; E78.5 Hyperlipidemia, unspecified; Z99.3 Dependence on wheelchair; Z79.82 Long term (current) use of aspirin; Z99.81 Dependence on supplemental oxygen; Z68.22 Body mass index [BMI] 22.0-22.9, adult; Z87.891 Personal history of nicotine dependence; Z79.84 Long term (current) use of oral hypoglycemic drugs; Z79.899 Other long term (current) drug therapy
CPT/HCPCS: 82962; 83880; 97116-GP; 97530-GP; G0378; J1940; J2060; J7620; Q0092

== ENCOUNTER 2018-11-18 21:53 | Inpatient (IN) | payer OTHER ==
[~2018-11-18] VITALS: Ht 157.5 cm; Wt 70.3 kg
[~2018-11-18 21:53] MED LIST changes: +LASIX40 MG PO; +NATURAL IRON65 MG PO
[2018-11-18 22:03] VITALS: Ht 157.5 cm; Wt 70.3 kg
--- NOTE | 2018-11-18 22:48 | NUR ---
PT PRESENTS TO ED WITH [facility] FOR C/O RECTAL BLEEDING. PER [facility] PT WAS [place] [facility] [place]. PT WAS THERE FOR THE SAME RECTAL BLEEDING WHERE SHE RECEIVED 3 UNITS OF BLOOD. PER PT SHE STARTED TO NOTICE THE SAME BAD SMELL YESTERDAY AND HER MOM SAW HER BRIGHT RED BLOODY STOOL TODAY. PT IS BLIND IN R EYE AND CAN BARELY SEE IN L EYE SO SHE WAS UNSURE. PT STATES THAT SHE DOES NOT HAVE ABDOMINAL PAIN HOWEVER SHE FEELS LIGHT HEADED AND CONFUSED. PT HAS VISIBLE BRIGHT RED STOOL TO BOTTOM. PT DENIES ABDOMINAL PAIN. PT HAS BEEN COMPLAINING OF DIARRHEA AND DENNIES CONSTIPATION. ABDOMEN IS SOFT AND NON TENDER. PT COMMPLAINING OF CHEST PAIN THAT RADIATES TO HER BACK THAT IS INTERMITTENT BUT SUDDEN IN ONSET AND SHARP. MOM AT BEDSIDE. PT APPEARS VERY ANXIOUS AND IS CRYING SAYING "I JUST WANT TO GIVE UP". PT DENIES SI OR PLAN AT THIS TIME. PT HAS R FOOT AMPUTATION WITH SMALL BANDAGE OVER WOUND TO R FOOT. PT STATES THIS WAS DONE IN 2018. PT IS BLIND OUT OF R EYE. PT IS ALSO BARELY ABLE TO SEE IN L EYE. PT RESP ARE EQUAL AND UNLABORED WHEN NOT CRYING. PT STATES PAIN IS 10/10 WHEN SHE GETS THAT CHEST PAIN HOWEVER DENIES PAIN ANYWHERE ELSE. PT ALSO HAS HX OF ANEMIA. PT ALERT TO SELF, AND PRESIDENT HOWEVER IS UNAWARE OF WHAT DAY IT IS OR WHAT YEAR IT IS. PT SPEAKING IN CLEAR AND FULL SENTENCES AND ABLE TO EXPRESS ALL NEEDS. PER MOM THIS IS HER BASELINE. PT STATES THAT SHE IS VERY STRESSED AND SHE "WANTS TO GIVE UP THERES JUST SO MANY THINGS WRONG WITH ME". AWAITING MSE AT THIS TIME. ERT KELLEN AT BEDSIDE TO COMPLETE EKG. AWAITING ORDERS
[2018-11-18 23:23] LABS: BASOPHIL % 0.9 % (0-2); PLATELET COUNT 209 x10^3mcL (130-400)
[2018-11-18 23:24] LABS: RED CELL DISTRIBUTION WIDTH 15.6 % (11.5-14.5)
[2018-11-18 23:40] LABS: ALBUMIN 2.9 g/dL (3.4-5.0); BILIRUBIN TOTAL 0.3 mg/dL (0.20-1.00); CALCIUM 7.4 mg/dL (8.5-10.1); CARBON DIOXIDE 22.4 mmol/L (21-32); CREATININE SERUM 2.2 mg/dL (0.6-1.0); POTASSIUM SERUM 4.7 mmol/L (3.5-5.1); TOTAL PROTEIN, SERUM 6.1 g/dL (6.4-8.2)
[2018-11-19] VITALS (7 sets, daily range): BP systolic 86–156; BP diastolic 44–79
--- NOTE | 2018-11-19 00:10 | NUR ---
BLOOD BANK STATES THEY ARE WORKING ON THE BLOOD NOW
[2018-11-19 00:30] LABS: rbc morphology (normal/abnorm) ABNORMAL (NORMAL)
[2018-11-19] MEDS ORDERED: PAXIL10 MG PO (00:30)
[2018-11-19 00:31] LABS: acanthocyte (spur cell) 1+; schistocyte (helmet cell) 1+
--- NOTE | 2018-11-19 00:45 | NUR ---
PT COMPLAINING OF SHARP CHEST PAIN AT THIS TIME. MD GANDHI MADE AWARE
--- NOTE | 2018-11-19 00:45 | NUR ---
BLOOD BANK STATES SHE WILL CALL BACK IN 5 MINUTES WITH THE BLOOD BEING READY
--- NOTE | 2018-11-19 01:05 | NUR ---
BLOOD BEGAN DOUBLE CHECK FOR BLOOD IS BETHEL CARRERO
--- NOTE | 2018-11-19 01:08 | NUR ---
RESIDENT AT BEDSIDE DISCUSSING PLAN OF CARE WITH PT
--- NOTE | 2018-11-19 01:08 | NUR ---
PER MD GANDHI AFTER INITIAL 15MIN OF BLOOD INFUSION THEN OPEN BLOOD TO WIDE OPEN. PER MD GANDHI PT NEEDS 4 UNITS OF BLOOD AND TO INFUSE THEM WIDE OPEN
--- NOTE | 2018-11-19 01:21 | NUR ---
BLOOD INCREASED TO 650/HR PER MD ORDER AND PT TOLERANCE. HOOKED TO PUMP TO INFUSE PROPERLY RESIDENT STILL AT BEDSIDE ASSESSING PT
[2018-11-19] MEDS ORDERED: APIDRA SOLOS100 U/ML IJ (01:39)
[2018-11-19] MEDS ORDERED: BASAGLAR K100 UNIT/1 SQ (01:40)
--- NOTE | 2018-11-19 02:05 | NUR ---
ATTEMPTED TO CALL BLOOD BANK FOR SECOND UNIT. LINE BUSY
--- NOTE | 2018-11-19 02:15 | NUR ---
NO TRANSFUSION REACTION WITH FIRST UNIT OF BLOOD TRANSFUSED
[2018-11-19 02:21] LABS: MAGNESIUM 2.4 mg/dL (1.8-2.4); T3 TOTAL 0.84 ng/mL
[2018-11-19 02:23] LABS: CHOLESTEROL/HDL RATIO 2.6
--- NOTE | 2018-11-19 02:24 | NUR ---
SECOND UNIT OF BLOOD BEGAN. SEE VITALS
[2018-11-19 02:31] LABS: FREE T4 0.91 ng/dL (0.76-1.46); T4(THYROXINE) 5.2 ug/dL (4.7-13.3)
--- NOTE | 2018-11-19 02:40 | NUR ---
15 MIN TRANSFUSION WATCH HAS NO REACTION. PT TOLERATING WELL. BLOOD INCREASED TO 100ML/HR PER MD OKSANA ORDER TO WATCH FOR CHF AND FLUID OVERLOAD.
[2018-11-19 02:45] LABS: UA SPECIFIC GRAVITY 1.015 (1.005-1.035); microscopic required? YES; urine erythrocyte 3+ (NEGATIVE)
--- NOTE | 2018-11-19 02:54 | NUR ---
REPORT CALLED TO ENRIQUE CARRERO
[2018-11-19 03:03] LABS: AMPHETAMINE QUAL UR NONE DETECTED (See below)
--- NOTE | 2018-11-19 03:21 | NUR ---
Received pt from ED at this time. Pt alert and oriented x4. No distress noted. Pt on room air with 02 Sat 100%. Pt ongoing 2/4 unit of PRBC with no adverse reaction noted. Dr. Garcia at the bedside at this time. Pt stable at this time. Vital signs within normal limits. All meds given as ordered. Will continue to monitor.
--- NOTE | 2018-11-19 04:11 | NUR ---
place new orders to d/c IVF and give 3 units of PRBC, H&H q6hrs,NPO except meds, Protonix 40mg IVP Q12hrs noted and carried out. Will continue to monitor.
--- NOTE | 2018-11-19 07:00 | NUR ---
RECEIVED REPORT FROM VALENCIA CARRERO. ALL QUESTIONS ANSWERED AND ADDRESSED. WILL ASSUME CARE
--- NOTE | 2018-11-19 07:02 | NUR ---
Seen and examined by Dr. Evans with no new orders.Dr Evans examined the bilateral lower extremities with no skin breakdown noted. Report given to Shaniqua CARRERO at this time. Will continue to monitor.
--- NOTE | 2018-11-19 08:18 | NUR ---
THIRD UNIT OF PRBC'S COMPLETED. VSS. SEE BLOOD BANK SHEET FOR DETAILS
--- NOTE | 2018-11-19 08:51 | NUR ---
PT STATING NAUSEA AND DRY HEAVING. ZOFRAN 4MG GIVEN AT THIS TIME. SEE EMAR FOR DETIALS
--- NOTE | 2018-11-19 09:00 | NUR ---
DR. FERGUSON AT BEDSIDE ASSESSING PT. DR. FERGUSON EXPLAINED THE NEED FOR AN EGD AND EXPLAINED THE RISKS AND BENEFITS OF THE PROCEDURE. PT AAOX4 AND STATED UNDERSTANDING. OBTAINED SIGNED CONSENT FROM PT AT THIS TIME. SEE CONSENT FORM FOR DETAILS.
--- NOTE | 2018-11-19 09:05 | NUR ---
PT'S MOUNA AT BEDSIDE. DR. FERGUSON IN UNIT AND SPEAKING WITH PT'S IN REGARDS TO NEED FOR EGD. RISK AND BENEFITS OF EGD EXPLAINED TO . CONSENT OBTAINED AT THIS TIME FOR EGD BY PT'S AND WITNESSED BY MYSELF, MORRO CARRERO.
--- NOTE | 2018-11-19 09:23 | NUR ---
REGLAN 5MG IVP GIVEN DUE TO PT'S DRY HEAVING AND NAUSEA. SEE EMAR FOR DETAILS.
[2018-11-19 10:33] LABS: CALCIUM 7.4 mg/dL (8.5-10.1); CARBON DIOXIDE 20.2 mmol/L (21-32); CREATININE SERUM 2.1 mg/dL (0.6-1.0); POTASSIUM SERUM 4.1 mmol/L (3.5-5.1)
[2018-11-19 10:43] LABS: BASOPHIL % 0.3 % (0-2); PLATELET COUNT 199 x10^3mcL (130-400)
[2018-11-19 10:47] LABS: RED CELL DISTRIBUTION WIDTH 16.7 % (11.5-14.5)
--- NOTE | 2018-11-19 11:00 | NUR ---
PT CONTINUOUSLY HAVING BLOOD STOOLS X3. PT CLEANED, GOWN CHANGED, BED SHEETS CHANGED. AFTER CLEANING, PT PROFUSELY BLEEDING FROM RECTUM. DEEP RED BLOOD NOTED. EST BLOOD LOSS OF 400 ML. PT AAOX4. COMPLAINING OF NO CP, DIZZINESS, OR SYNCOPE. PT'S MAP OF 55. DR. DALTON MADE AWARE AT THIS TIME. DR. DALTON STATED FOR 500 ML BOLUS. WILL CARRY OUT ORDERS.
--- NOTE | 2018-11-19 11:02 | NUR ---
OBTAINED SIGNED CONSENT FOR COLONSOCOPY AT THIS TIME BY PT WHO IS A/O X 4. ALL RISK AND BENEFITS EXPLAINED TO PT BY DR. FERGUSON.
--- NOTE | 2018-11-19 11:10 | NUR ---
500 ML NS BOLUS INITIATED AT THIS TIME PER MD ORDERS. PRIMARY RN AWARE.
--- NOTE | 2018-11-19 11:28 | NUR ---
DR. FERGUSON AND GI TEAM AT BEDSIDE FOR COLONOSCOPY.
--- NOTE | 2018-11-19 13:24 | NUR ---
PATIENTS MOTHER VISITING AT BEDSIDE, PATIENT ASLEEP AT THIS TIME. MOTHER SPOKE WITH DR. DALTON, UPDATE PROVIDED TO HER BY HIM. SHE WILL RETURN IN THE EVENING.
[2018-11-19 15:13] LABS: BASOPHIL % 0.5 % (0-2); PLATELET COUNT 207 x10^3mcL (130-400)
[2018-11-19 15:19] LABS: RED CELL DISTRIBUTION WIDTH 16.8 % (11.5-14.5)
--- NOTE | 2018-11-19 16:28 | NUR ---
REPORT GIVEN TO IMELDA CARRERO. ALL QUESTIONS ANSWERED AND ADDRESSED. PT WILL BE TRANSFERRING TO [facility] VIA WHEELCHAIR. TELE BOX #3 APPLIED.
--- NOTE | 2018-11-19 16:55 | NUR ---
RECEIVED PT FROM ICU RM 4 REPORT GIVEN BY VANESSA CARRERO. PT ALERT AND ORIENTED. BREATHING FREELY ON RA. NO C/O PAIN. NS INFUSING 70 CC HOUR. PLACED ON SCD'S. CALL LIGHT WITHIN REACH.
--- NOTE | 2018-11-19 18:30 | NUR ---
RESTING QUIETLY AND COMFORTABLY AFTER DINNER. VSS. BSC. NS INFUISNG 70 CC HOUR. BREATHING FREELY ON RA. NO C/O PAIN. CALL LIGHT WITHIN REACH.
--- NOTE | 2018-11-19 19:30 | NUR ---
RECEIVED PT IN BED, ALERT AND ORIENTED, DENIES HEADACHE OR DIZZINESS, BREATHING EVEN AND UNLABORED, LUNG SOUNDS CLEAR, ON ROOM AIR WITH NO RESP DSITRESS NOTED, ON TELE#3 SB, DENIES CHEST PAIN, IVF INFUSING WELL, PULSES PALPABLE TO BUE AND RLE, LEFT BKA, GENERALIZED WEAKNESS, ABLE TO REPOSITION BY HERSELF, ABD SOFT AND FLAT WITH ACTIVE BS, NO BM AT THIS TIME, VOIDING FREELY, NO DISTRESS NOTED, WILL KEEP TO MONITOR.
--- NOTE | 2018-11-19 20:49 | NUR ---
REPORT GIVEN TO RADHA, ALL QUESTIONS ANSWERED AND CONCERNS ADDRESSED.
--- NOTE | 2018-11-19 21:27 | NUR ---
PT RECEIVED FROM RN HENRIQUE, PT LAYING DOWN IN BED. BREATHING EVEN AND UNLABORED ON RA. NO ACUTE DISTRESS NOTED. BED AT LOWEST SETTING. SIDE RAILS X2 UP. CALL LIGHT WITHING REACH. WILL CONTINUE TO MONITOR.
--- NOTE | 2018-11-19 22:14 | NUR ---
PT C/O INSOMNIA, MEDICATED WITH AMBIEN PER APR. WILL CONTINUE TO MONITOR.
--- NOTE | 2018-11-20 | NUR ---
PT LAYING DOWN IN BED WITH EYES CLOSED. BREATHING EVEN AND UNLABORED ON RA. NO ACUTE DISTRESS NOTED. BED AT LOWEST SETTING. SIDE RAILS X2 UP. CALL LIGHT WITHING REACH. WILL CONTINUE TO MONITOR.
--- NOTE | 2018-11-20 04:52 | NUR ---
PT HAD AN EPISODE OF LOOSE DARK RED STOOL. DR SPAULDING MADE AWARE. PER WE WILL MONITOR H/H. NO NEW ORDERS RECEIVED. WILL CONTINUE TO MONITOR.
[2018-11-20 05:48] VITALS: BP 113/56
--- NOTE | 2018-11-20 06:14 | NUR ---
PT SLEPT AT INTERVALS THROIGHOUT THE NIGHT, BREATHING EVEN AND UNLBARED ON RA. PT HAD A TOTAL OF 3 EPISODES OF DARK RED LOOSE STOOLS. DR DALTON MADE AWARE. NO NEW ORDERS RECEIVED. PT IN NO ACUTE DISTRESS. ALL NEEDS ASSESSED AND ATTENDED TO. IV TO RAC INFUSING NS AT 70ML/HR. SITE WNL. BED AT LOWEST SETTING. SIDE RAILS X2 UP. CALL LIGHT WITHING REACH. WILL ENDORSE CARE TO AM NURSE.
[2018-11-20 06:49] LABS: BASOPHIL % 0.5 % (0-2); PLATELET COUNT 197 x10^3mcL (130-400)
[2018-11-20 07:06] LABS: CALCIUM 7.3 mg/dL (8.5-10.1); CARBON DIOXIDE 17.5 mmol/L (21-32); CREATININE SERUM 2.3 mg/dL (0.6-1.0); MAGNESIUM 2.5 mg/dL (1.8-2.4); PHOSPHOROUS 6.3 mg/dL (2.5-4.9); POTASSIUM SERUM 4.8 mmol/L (3.5-5.1)
[2018-11-20 07:16] LABS: RED CELL DISTRIBUTION WIDTH 16.7 % (11.5-14.5)
--- NOTE | 2018-11-20 08:00 | NUR ---
ALERT AND ORIENTED. BREATHING FREELY ON RA. NO C/O PAIN. TELE # 3 NSR. NS INFUSING 70 CC HOUR. 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 INCISION WELL HEALED. 1 VERY SHALLOW SMALL DRY SCAB PLANTAR SURFACE. AMBULATES WEARING SOCKS.CALLLIGHT WITHN REACH.
[2018-11-20 08:23] VITALS: BP 148/59
--- NOTE | 2018-11-20 12:14 | NUR ---
PT HAD 2 WATERY BLOODY STOOLS.
[2018-11-20 13:30] VITALS: BP 153/68
[2018-11-20 16:30] VITALS: BP 122/53
--- NOTE | 2018-11-20 18:54 | NUR ---
AMBULATES IN HALLWAY OCCASSIONALY. NS TKO/10 CC HOUR. RECEIVED FERRLECIT THIS AM. TAKING FERROUS SULFATE PO. WATERY BLOODY STOOLS X 2 THIS SHIFT. LAST STOOL IN STRANDS. RECEIVED LACTULOSE AND METAMUCIL TODAY. 11/19 AMMONIA 70. TOLERATES CCHO DIET WELL. VSS. CALL LIGHT WITHIN REACH.
--- NOTE | 2018-11-20 19:30 | NUR ---
RECEIVED PT FROM AM NURSE IMELDA. PT AAOX4, ABLE TO MAKE NEEDS KNOWN. ON TELE#3 READ[address] SR. DENIES CP/PRESSURE AT THIS TIME. PALPABLE PULSES TO ALL EXTREMETIES. NO EDEMA NOTED. LUNG SOUNDS CTA. BREATHING EVEN AND UNLABORED ON RA. NO AUCTE DISTRESS NOTED. ABD SOFT AND NONDISTENDED, ACTIVE BS X4 QUAD. C./O HAVING LOOSES STOOLS. VOIDS FREELY BRP. AMBULATORY. IV TO RAC AND LAC FLUSHING WELL. SITES WNL. BED AT LOWEST SETTING. SIDE RAILS X2 UP. CALL LIGHT WITHING REACH. WILL CONTINUE TO MONITOR.
[2018-11-20 20:32] VITALS: BP 148/59
--- NOTE | 2018-11-20 23:00 | NUR ---
PT C/O INSOMNIA, MEDICATED WITH PRN AMBIEN PER APR. WILL CONTINUE TO MONITOR.
[2018-11-21 05:58] VITALS: BP 140/70
--- NOTE | 2018-11-21 06:09 | NUR ---
PT SLEPT AT INTERVALS THROUGHOUT THE NIGHT. BREATHING EVEN AND UNLABORED ON RA. NO ACUTE DISTRESS NOTED. NO SIGNIFICANT CHANGE DURING THE SHIFT. NO C/O DIARRHEA. NO S/S OF BLEEDING NOTED. ALL NEEDS ASSESSED AND ATTENDED TO. IV TO LAC AND RAC FLUSHING WELL. SITE WNL. BED AT LOWEST SETTING. SIDE RAILS X2 UP. CALL LIGHT WITHING REACH. WILL ENDORSE CARE TO AM NURSE.
[2018-11-21 06:24] LABS: BASOPHIL % 0.5 % (0-2); PLATELET COUNT 203 x10^3mcL (130-400)
[2018-11-21 06:29] LABS: RED CELL DISTRIBUTION WIDTH 16.2 % (11.5-14.5)
[2018-11-21 06:41] LABS: CALCIUM 7.7 mg/dL (8.5-10.1); CARBON DIOXIDE 19.1 mmol/L (21-32); CREATININE SERUM 2.1 mg/dL (0.6-1.0); MAGNESIUM 2.3 mg/dL (1.8-2.4); PHOSPHOROUS 5.1 mg/dL (2.5-4.9); POTASSIUM SERUM 4.9 mmol/L (3.5-5.1)
--- NOTE | 2018-11-21 07:45 | NUR ---
PATIENT SLEEPING IN BED, AROUSABLE TO TOUCH. PATIENT IS A/OX4, DENIES PAIN. NO ACUTE RESPIRATORY DISTRESS, PATIENT ON ROOM AIR. 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 TELE MONITOR IN PLACE. PATIENT C/O DIARRHEA, NO LOOSE STOOL NOTED AT THIS TIME. PATIENT IS AMBULATORY WITH NO ASSISTANCE. IV TO TO LAC & RAC SALINE LOCK, IV SITES CDI & PATENT, NO S/S OF INFILTRATION. CALL LIGHT WITHIN REACH, BED IN LOW POSITION, WILL CONTINUE TO MONITOR.
[2018-11-21 08:35] VITALS: BP 137/65
[2018-11-21 13:03] VITALS: BP 139/62
--- NOTE | 2018-11-21 13:40 | NUR ---
BLOOD TRANSFUSION GIVEN NOW, VERIFIED BLOOD PRODUCT WITH MAGAN GARNER. VITAL SIGN STABLE, BLOOD PRODUCT STARTED AT 60ML/HR FOR THE FIRST MIN, WILL INCREASE RATE IF NO REACTIONS OCCURS.
--- NOTE | 2018-11-21 13:55 | NUR ---
BLOOD PRODUCT INFUSED FOR 15MIN, NO ADVERSE REACTION NOTED. VITAL SIGNS STABLE AT THIS TIME, WILL INCREASE RATE TO 120ML/HR.
[2018-11-21] MEDS ORDERED: FER300 PO (14:57)
[2018-11-21] MEDS ORDERED: GOOD SENSE OMEP20 MG PO (15:05)
[2018-11-21] MEDS ORDERED: NATURE'S BLEND F1 MG PO (15:06)
[2018-11-21] MEDS ORDERED: MULTIVITAMIN1 SGL PO (15:07)
[2018-11-21 16:22] VITALS: BP 138/65
[2018-11-21 17:17] VITALS: BP 138/65
--- NOTE | 2018-11-21 17:55 | NUR ---
PATIENT WAS DICHARGED HOME TODAY, PATIENT RECEIVED COPY OF DISCHARGE INSTRUCTIONS & PLAN OF CARE, PATIENT & MOTHER UNDERSTAND AND AGREE WITH PLAN OF CARE INCLUDING FOLLOW UP WITH PCP & DR. FERGUSON & MEDICATIONS. ALL QUESTIONS & CONCERNS ADDRESSED. PATIENT TOOK HOME ALL PERSONAL BELONGINGS. IV TO RAC&LAC REMOVED, CATH INTACT. TELE MONITOR AND ARMBANDS REMOVED. PATIENT TAKEN DOWN VIA WHEELCHAIR BY MEDICAL RECEPTIONIST MEDICAL ASSISTANT.
== END 2018-11-21 17:51 | disposition home health service (06) | DRG 241 ==
LOC: ED 21:53 → IC 11-19 01:40 → DU 11-19 01:40 → IC 11-19 02:17 → DU 11-19 16:55
PROVIDERS: Emergency Medicine; Internal Medicine Gastroenterology; ADMIT General Practice
PROC: 0DBN8ZZ Excision of Sigmoid Colon, Via Natural or Artificial Opening Endoscopic (ICD-10-PCS; 2018-11-19)
PROC: 30233N1 Transfusion of Nonautologous Red Blood Cells into Peripheral Vein, Percutaneous Approach (ICD-10-PCS; principal; 2018-11-19 09:15)
PROC: 0DB68ZX Excision of Stomach, Via Natural or Artificial Opening Endoscopic, Diagnostic (ICD-10-PCS; 2018-11-19 09:15)
PROC: 0DBF8ZZ Excision of Right Large Intestine, Via Natural or Artificial Opening Endoscopic (ICD-10-PCS; 2018-11-19 11:15)
DX: K29.71 Gastritis, unspecified, with bleeding (principal); N17.0 Acute kidney failure with tubular necrosis; E44.0 Moderate protein-calorie malnutrition; E11.22 Type 2 diabetes mellitus with diabetic chronic kidney disease; E11.65 Type 2 diabetes mellitus with hyperglycemia; D62 Acute posthemorrhagic anemia; I13.0 Hypertensive heart and chronic kidney disease with heart failure and stage 1 through stage 4 chronic kidney disease, or unspecified chronic kidney disease; I50.32 Chronic diastolic (congestive) heart failure; I42.9 Cardiomyopathy, unspecified; N18.4 Chronic kidney disease, stage 4 (severe); E78.5 Hyperlipidemia, unspecified; J44.9 Chronic obstructive pulmonary disease, unspecified; Z99.81 Dependence on supplemental oxygen; Z89.432 Acquired absence of left foot; Z99.3 Dependence on wheelchair; Z86.711 Personal history of pulmonary embolism; Z68.31 Body mass index [BMI] 31.0-31.9, adult; Z88.5 Allergy status to narcotic agent; Z88.8 Allergy status to other drugs, medicaments and biological substances; H54.8 Legal blindness, as defined in USA; Z79.82 Long term (current) use of aspirin
CPT/HCPCS: 43235; 45378; 82962; 83880; 84439; 97116-GP; C9113; G0378; J0171; J1200; J1610; J1815; J1940; J2250; J2310; J2405; J2765; J2916; J3010; J3490; J7030; J7050; J7620; P9016; Q0092; Q0163

== ENCOUNTER 2018-12-06 19:44 | Inpatient (IN) | payer OTHER ==
[~2018-12-06] VITALS: Ht 157.5 cm; Wt 70.8 kg
[~2018-12-06 19:44] MED LIST changes: +APIDRA SOLOS100 U/ML IJ; +FER300 PO; +MULTIVITAMIN1 SGL PO; +NATURE'S BLEND F1 MG PO; +PAXIL10 MG PO
[2018-12-06 19:53] VITALS: Ht 157.5 cm; Wt 70.8 kg
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
[2018-12-06 20:58] LABS: microscopic required? YES; urine erythrocyte 1+ (NEGATIVE)
[2018-12-06 20:59] LABS: BASOPHIL % 0.7 % (0-2); PLATELET COUNT 262 x10^3mcL (130-400)
[2018-12-06 21:09] LABS: BILIRUBIN TOTAL 0.4 mg/dL (0.20-1.00); CALCIUM 7.6 mg/dL (8.5-10.1); CARBON DIOXIDE 26.8 mmol/L (21-32); CREATININE SERUM 3.3 mg/dL (0.6-1.0); POTASSIUM SERUM 5.3 mmol/L (3.5-5.1); TOTAL PROTEIN, SERUM 6.8 g/dL (6.4-8.2)
[2018-12-06 21:13] LABS: ALBUMIN 3.2 g/dL (3.4-5.0)
[2018-12-06 21:15] LABS: RED CELL DISTRIBUTION WIDTH 18.4 % (11.5-14.5)
[2018-12-06 21:36] LABS: rbc morphology (normal/abnorm) ABNORMAL (NORMAL)
--- NOTE | 2018-12-06 21:49 | NUR ---
SONY RN AT BEDSIDE FOR IV INSERTION ATTEMPT DUE TO BLOOD TRANSFUSION REQUIREMENTS
--- NOTE | 2018-12-06 22:00 | NUR ---
SIGNED CONSENT FORM PLACED IN PT CHART. MOTHER CALLED AND NOTIFIED PT WILL BE ADMITTED TO THE HOSPITAL
--- NOTE | 2018-12-06 22:12 | NUR ---
BLOOD TRANSFUSION STARTED AT 50CC/HR. WILL WATCH PT FOR FIRST 15 MIN FOR ANY ADVERSE REACTION AND THEN ADJUST BLOOD RATE PER MD ORDER
--- NOTE | 2018-12-06 22:16 | NUR ---
PT HAS PROSETIC R EYE IN PLACE, BUT NO OTHER BELONGINGS
[2018-12-06] MEDS ORDERED: CARVEDILOL6.25 M1 PO (22:19)
--- NOTE | 2018-12-06 22:27 | NUR ---
NO REACTION NOTED. BLOOD RATE INCREASED TO 100ML/HR PER MD JACKMAN VERBAL ORDERS. PT MADE AWARE. AND AT THIS TIME
--- NOTE | 2018-12-06 23:09 | NUR ---
REPORT GIVEN TO KIERRA CARRERO
[2018-12-07] VITALS (11 sets, daily range): BP systolic 102–151; BP diastolic 43–74
--- NOTE | 2018-12-07 00:27 | NUR ---
RECEIVED PT FROM ER, PT ADMIT FOR HYPOGLYCEMIA, GI BLEED. PT IS A/O X4, VERBAL RESPONSIVE, LUNG SOUND CLEAR BILATERAL, NO COUGH, NO SOB. PT IS ON TELE 23, NSR, DENY ANY CHEST PAIN OR DISCOMFORT, BOWEL SOUND PRESENT ALL 4 QUADRANTS, NO DISTENTION, BUT PT C/O BLACK STOOL. PEDAL PULSE PRESENT AT RIGHT FOOT. NO EDEMA. LEFT FOOT AMPUTATED. IV AT RIGHT FA, NO LEAKING, NO INFILTRAITON. PT CONTINUE ON BLOOD TRANSFUSION FROM ER, RIGHT EYE PROSTHESIS. LEFT EYE POOR VISION. ALL ADLS ASSIST, ALL NEED MET, CALL LIGHT IN REACH, WILL CONTINUE TO MONITOR.
--- NOTE | 2018-12-07 00:42 | NUR ---
BLOOD SUGAR CHECK 172MG/DL. TROP=0.145, POTASSIUM LEVEL=5.3, DR ASHER MADE AWARE, AWAITNG FOR NEW ORDER. FIRST UNIT OF PRBC IN PROGRESS, WHICH WAS STARTED IN ER, IV ACCESS AT THE RFA G#20 INTACT AND PATENT, PT TP;ERATING PROCEDURE WELL. WILL CONTINUE TO MONITOR.
--- NOTE | 2018-12-07 01:15 | NUR ---
1ST UNIT PRBC COMPLETED. BOTAL SIGNS TAKEN AND RECORDED. NO ADVERSE REACTION FROM BLOOD REANFUSION. .
--- NOTE | 2018-12-07 01:30 | NUR ---
BENADRYL 25MG PO, LASIX 20MG IVP, TYLENOL 650MG PO GIVEN PRE BLOOD PRE-MEDICATION FOR 2ND UNIT PRBC. ABLE TO REPOSITION SELF IN BED..
--- NOTE | 2018-12-07 01:55 | NUR ---
2ND UNIT PRBC ASMINISHTERED AFTER VERIFICATION AT BEDSIDE WITH ANOTHER RN IN THE UNIT. VITAL SIGNS STABLE.
--- NOTE | 2018-12-07 04:10 | NUR ---
ASSSITED TO ABTHRROOM FOR PERSONAL NEEDS. KEPT CLEAN AND DRY. WILL CONTINUE TO MONITOR.
--- NOTE | 2018-12-07 05:16 | NUR ---
2ND UNIT PRBC CPMPLETED WITHOUT ANY ADVERSE REACTION. BLOOD SUGAR CHECK 135MG/DL, NO S/S OF GLYCEMIC REACTION. IV ACCESS INTACT AND PATENT. NO REDNESS NOTED AT THE IV SITE. VITAL SIGNS REMAIN STABLE. ALL NEEDS ATTENDED.
--- NOTE | 2018-12-07 05:58 | NUR ---
QUEIT IN BED. NO S/S OF APIN/DISCOMFORT. ALL NEEDS ATTENDED.
[2018-12-07 06:41] LABS: CALCIUM 7.6 mg/dL (8.5-10.1); CARBON DIOXIDE 25.3 mmol/L (21-32); CREATININE SERUM 2.9 mg/dL (0.6-1.0); MAGNESIUM 2.2 mg/dL (1.8-2.4); PHOSPHOROUS 5.3 mg/dL (2.5-4.9); POTASSIUM SERUM 4.7 mmol/L (3.5-5.1)
[2018-12-07 06:59] LABS: BASOPHIL % 0.4 % (0-2); PLATELET COUNT 212 x10^3mcL (130-400)
[2018-12-07 07:01] LABS: RED CELL DISTRIBUTION WIDTH 18.2 % (11.5-14.5)
--- NOTE | 2018-12-07 07:08 | NUR ---
RECEIVED REPORT FROM KIERRA CARRERO. PATIENT SLEEPING COMFORTABLY IN BED WITH ALL NEEDS MET. SALINE LOCK TO RFA IS PATENT AND INTACT. NO REDNESS OR PAIN. TELE # [address] NO INDICATION OF CHEST PAIN. PT ON ROOM AIR. NO DISTRESS NOTED.ALL QUESTIONS AND CONCERNS ADDRESSED.
[2018-12-07 09:35] LABS: IRON 35 ug/dL (50-170); TOTAL IRON BINDING CAPACITY 308 ug/dL (250-450)
[2018-12-07 09:41] LABS: AMPHETAMINE QUAL UR NONE DETECTED (See below)
--- NOTE | 2018-12-07 13:07 | NUR ---
RECEIVED CALL FROM LAB FOR PATIENT TROPONIN 0.[address] GALLEGOS PAGED TO NOTIFY.
--- NOTE | 2018-12-07 19:28 | NUR ---
REPORT GIVEN TO KIERRA CARRERO. PATIENT SITTING IN ROOM ON THE PHONE AND UPSET. PT REQUESTING ATIVAN. PAGED. ALL OTHER NEEDS MET. ALL QUESTIONS AND CONCERNS ADDRESSED. ALL CARES ENDORSED.
--- NOTE | 2018-12-07 19:52 | NUR ---
RECEIVED PT AMBULATING ALONG THE HALLWAY. ALERT AND VERBALLY RESPONSIVE. ABLE TO MAKE ENEDS KNOWN. SKIN WARM AND DRY TO TOUCH. IV SITE AT THE RFA INTACT AND PATENT. NSR ON BLOCK CHOPPER HAND . DENIES N ANY CHEST DISCOMFORT AT THIS TIME.
--- NOTE | 2018-12-07 20:57 | NUR ---
REPORT THE CRITICAL LAB RESULT TROPNIN 0.162 TO PRIMARY NURSE MAGAN LOZADA.
--- NOTE | 2018-12-07 21:20 | NUR ---
TROPONIN RESULT 0.162, DR NIX MADE AWARE, NO NEW ORDERS GIVEN, DENIES ANY CHEST PAIN/DISCOMFORT.
--- NOTE | 2018-12-07 23:20 | NUR ---
PT ASKING FOR BENADRYL IV, DR NIX WAS PAGED X3 AWAITNG FOR RETURN CALL. PT MADE AWARE, KEEPS ON TRYING TO GET IN TOUCH WITH THE MD.
--- NOTE | 2018-12-08 00:10 | NUR ---
BENDRYL 25MG IV GIVEN ORDERED. ABLE TO REPOSITION SELF IN BED. MAINTAINED ON NPO AFTER MIDNIGHT FOR SBFT. PT AWARE AND COOPERATIVE WITH PLAN OF CARE.
[2018-12-08 04:36] VITALS: BP 153/56
--- NOTE | 2018-12-08 05:17 | NUR ---
AMBULATING ON AND OFF ALONG THE ROOM. ABLE TO SLEEP AT LONG INTERVAL AFTER BENADRYL IV WAS GIVEN. PT DENEIS ANY CSHEST DISCOMFORT AT THIS TIME.
[2018-12-08 06:29] LABS: BASOPHIL % 0.5 % (0-2); PLATELET COUNT 227 x10^3mcL (130-400)
[2018-12-08 06:50] LABS: CALCIUM 7.5 mg/dL (8.5-10.1); CARBON DIOXIDE 24.9 mmol/L (21-32); CREATININE SERUM 2.5 mg/dL (0.6-1.0)
[2018-12-08 07:02] LABS: POTASSIUM SERUM 6.2 mmol/L (3.5-5.1)
--- NOTE | 2018-12-08 07:37 | NUR ---
RECEIVED AWAKE, ALERT AND ORIENTED. NO RESP. DISTRESS NOTED. NO C/O PAIN OR DISCOMFORT AT THIS TIME. CALL LIGHT WITHIN REACH.WILL CONTINUE WITH PLAN OF CARE.
[2018-12-08 07:44] LABS: RED CELL DISTRIBUTION WIDTH 17.6 % (11.5-14.5)
[2018-12-08 08:00] VITALS: BP 129/53
[2018-12-08 08:07] LABS: microalbumin:creatinine ratio 617.3 (0.0-30.0)
--- NOTE | 2018-12-08 13:35 | NUR ---
RESTING IN RAINER DISTRESS, DENIES ANY DISCOMFORT AT THIS TIME.
[2018-12-08 16:56] VITALS: BP 116/53
[2018-12-08 18:00] LABS: CALCIUM 7.6 mg/dL (8.5-10.1); CARBON DIOXIDE 27.8 mmol/L (21-32); CREATININE SERUM 2.3 mg/dL (0.6-1.0); POTASSIUM SERUM 5.1 mmol/L (3.5-5.1)
--- NOTE | 2018-12-08 18:36 | NUR ---
REMAINS IN NO ACUTE DISTRESS, RESTING AT THIS TIME. NO C/O PAIN OR DISCOMFORT. NO CHANGES IN VS. CALL LIGHT WITHIN REACH. WILL BE ENDORSED TO INCOMING SHIFT.
--- NOTE | 2018-12-08 19:44 | NUR ---
RECEIVED PT IN BED AAOX4 NO ACUTE DISTRESS NOTED , PT DENY ABD PAIN AT THE MOMENT , LUNG SOUNDS CTA , ON TELE NUMBER 23 THAT SHOWS NSR HR 77. HL INTACT FLUSHING WELL .
[2018-12-08 20:03] VITALS: BP 132/51
--- NOTE | 2018-12-09 04:50 | NUR ---
I HAVE REVIEWED THE DATA COLLECTION BY SUPERVISOR TUMBLERS (NAME):BASILIO CARCAMO ENTERED ON (DATE/TIME): I CONCUR WITH THE DATA AND ANY EXCEPTIONS OR COMMENTS ARE LISTED BELOW:
[2018-12-09 05:25] VITALS: BP 126/44
[2018-12-09 06:09] LABS: BASOPHIL % 0.4 % (0-2); PLATELET COUNT 237 x10^3mcL (130-400)
[2018-12-09 06:11] LABS: RED CELL DISTRIBUTION WIDTH 17.5 % (11.5-14.5)
[2018-12-09 06:20] LABS: CALCIUM 7.6 mg/dL (8.5-10.1); CARBON DIOXIDE 26.2 mmol/L (21-32); CREATININE SERUM 2.3 mg/dL (0.6-1.0); POTASSIUM SERUM 5.1 mmol/L (3.5-5.1)
--- NOTE | 2018-12-09 06:26 | NUR ---
NO CHANGES OF CONDITION NOTED, ALL DUE MEDS GIVEN NO REACTION NOTED, PT'S AWAKE SITTING ON THE EDGE OF THE BED DRINKING TEA.HL INTACT , TELE NSR.
--- NOTE | 2018-12-09 07:30 | NUR ---
RECEIVED PATIENT IN BED APPEARS TO BE RESTING WELL. TELE 23 NSR. PATIENT IS ALERT AND ORIENTED ABLE TO VERBALIZE NEEDS WELL. HL RT HABD PATENT, FLUSHED WELL. GENERALIZED WEAKNESS NOTED. LT FOOT AMPUTEE, AMBULATES WITH ASSIST PRN. PER PATIENT SHE IS BLIND IN RT EYE AND HAS A PROSTHESIS, AND POOR VISION ON LT EYE. RESP EVEN AND UNLABORED LUNGS CLEAR ON ROOM AIR. SKIN INTACT. PATIENT BECOMES TEARFUL AND ANXIOUS AT TIMES, PREFERS TO SITE OUT BY THE NURSES STATION.
[2018-12-09 07:56] VITALS: BP 145/59
--- NOTE | 2018-12-09 10:00 | NUR ---
PATIENT'S PLAN OF CARE WAS DISCUSSED AND REVIEWED WITH CONSUMER RELATIONS COMPLAINT CLERK:KELL SWANN. I HAVE REVIEWED THE DATA COLLECTION BY CONSUMER RELATIONS COMPLAINT CLERK (NAME):KELL SWANN. ENTERED ON (DATE/TIME):12/09/18 AT 1000. I CONCUR WITH THE DATA AND ANY EXCEPTIONS OR COMMENTS ARE LISTED BELOW:
--- NOTE | 2018-12-09 10:07 | NUR ---
DR [place] NOTIFIED OF PATIENT'S MG LEVEL OF 1.6 TODAY. NEW ORDER RECEIVED.
--- NOTE | 2018-12-09 10:44 | NUR ---
PATIENT SEEN BY SOREN DEGROOT RN AT THIS TIME. NEW ORDER RECEIVED. PATIENT IS NOW SITTING UP ON W/C ACCROSS FROM NURSES STATION. NO CHANGE IN CONDITIION NOTED.
[2018-12-09 11:47] VITALS: BP 149/98
--- NOTE | 2018-12-09 13:44 | NUR ---
PATIENT HAS BEEN OOB AMBULATING IN THE HALLWAY WITH HER MOTHER. CONTINUES TO HAVE MOOD SWINGS YELLS AND CORBY OFF AND ON. REQUEST EXTRA FOOD FREQUENTLY.
--- NOTE | 2018-12-09 14:40 | NUR ---
Nutrition Education: Diet education on CKD, DM along with food list on high and low potassium foods was provided to the patient. Consumption of low potassium foods was emphasized.
--- NOTE | 2018-12-09 15:58 | NUR ---
PATIENT READY FOR D/C HOME. HL AND TELE DC'D. DISCHARGE INSTRUCTIONS AND EDUCATIION PROVIDED. BOTH PATIENT'S MOM AND BROTHER AT BEDSIDE TO HELP PATIENT RECEIVE HER D/C INFORMATION. PERSONAL BELONGINGS LIST SIGNED. CONDITION APPEARS STABLE.
== END 2018-12-09 16:28 | disposition home or self-care (01) | DRG 812 ==
LOC: ED 19:44 → DU 22:30
PROVIDERS: Emergency Medicine; Internal Medicine; Internal Medicine Nephrology; ADMIT Family Medicine
PROC: 30233N1 Transfusion of Nonautologous Red Blood Cells into Peripheral Vein, Percutaneous Approach (ICD-10-PCS; principal; 2018-12-06)
DX: T38.3X1A Poisoning by insulin and oral hypoglycemic [antidiabetic] drugs, accidental (unintentional), initial encounter (principal); N17.0 Acute kidney failure with tubular necrosis; I50.33 Acute on chronic diastolic (congestive) heart failure; E44.0 Moderate protein-calorie malnutrition; E87.5 Hyperkalemia; K92.2 Gastrointestinal hemorrhage, unspecified; E11.21 Type 2 diabetes mellitus with diabetic nephropathy; E11.649 Type 2 diabetes mellitus with hypoglycemia without coma; I13.0 Hypertensive heart and chronic kidney disease with heart failure and stage 1 through stage 4 chronic kidney disease, or unspecified chronic kidney disease; N18.4 Chronic kidney disease, stage 4 (severe); E78.5 Hyperlipidemia, unspecified; J44.9 Chronic obstructive pulmonary disease, unspecified; Z79.4 Long term (current) use of insulin; Y92.018 Other place in single-family (private) house as the place of occurrence of the external cause; Z68.28 Body mass index [BMI] 28.0-28.9, adult; Z88.5 Allergy status to narcotic agent; Z88.8 Allergy status to other drugs, medicaments and biological substances
CPT/HCPCS: 82962; 83880; C9113; G0378; J1200; J1815; J1940; J2060; J3490; J7042; J7050; P9016; Q0092; Q0163; Q9967

== ENCOUNTER 2018-12-19 16:18 | Inpatient (IN) | payer OTHER ==
[~2018-12-19] VITALS: Ht 157.5 cm; Wt 68.2 kg
[~2018-12-19 16:18] MED LIST changes: +CARVEDILOL6.25 M1 PO
[2018-12-19 16:23] VITALS: Ht 157.5 cm; Wt 68.2 kg
[2018-12-19 17:22] LABS: BILIRUBIN TOTAL 0.37 mg/dL (0.20-1.00); CALCIUM 7.5 mg/dL (8.5-10.1); CARBON DIOXIDE 24.2 mmol/L (21-32); CREATININE SERUM 2.3 mg/dL (0.6-1.0); POTASSIUM SERUM 4.8 mmol/L (3.5-5.1); TOTAL PROTEIN, SERUM 6.5 g/dL (6.4-8.2)
[2018-12-19 17:24] LABS: ALBUMIN 3.2 g/dL (3.4-5.0)
[2018-12-19 17:26] LABS: BASOPHIL % 0.7 % (0-2); PLATELET COUNT 238 x10^3mcL (130-400)
[2018-12-19 17:31] LABS: RED CELL DISTRIBUTION WIDTH 16.8 % (11.5-14.5)
[2018-12-19 19:43] LABS: FREE T4 0.73 ng/dL (0.76-1.46); FREE THYROXINE INDEX 1.9 ug/dL (1.4-4.5); T4(THYROXINE) 5.6 ug/dL (4.7-13.3)
[2018-12-19] MEDS ORDERED: ATORVASTATIN CA40 M1 PO (19:43)
[2018-12-19] MEDS ORDERED: ZOF4 PO (19:44)
[2018-12-19] MEDS ORDERED: BASAGLAR K100 UNIT/1 SQ (19:45)
[2018-12-19] MEDS ORDERED: SENNA8.6 M2 PO (19:46)
[2018-12-19] MEDS ORDERED: MELATONIN3 MG PO (19:47)
[2018-12-19] MEDS ORDERED: MIRALAX17 GM/Dose PO (19:48)
[2018-12-19] MEDS ORDERED: PAROXETINE20 M1 PO (19:49)
[2018-12-19 20:22] VITALS: BP 126/60
[2018-12-19 20:30] LABS: T3 TOTAL 0.89 ng/mL
[2018-12-19 21:55] VITALS: BP 141/61
[2018-12-20] VITALS (7 sets, daily range): BP systolic 95–143; BP diastolic 52–69
[2018-12-20 01:09] LABS: BASOPHIL % 0.4 % (0-2); PLATELET COUNT 222 x10^3mcL (130-400)
[2018-12-20 06:42] LABS: PLATELET COUNT 219 x10^3mcL (130-400)
[2018-12-20 06:52] LABS: CALCIUM 7.5 mg/dL (8.5-10.1); CARBON DIOXIDE 19.4 mmol/L (21-32); CREATININE SERUM 2.2 mg/dL (0.6-1.0); MAGNESIUM 2.2 mg/dL (1.8-2.4); PHOSPHOROUS 4.8 mg/dL (2.5-4.9); POTASSIUM SERUM 4.4 mmol/L (3.5-5.1)
[2018-12-20 07:06] LABS: AMPHETAMINE QUAL UR NONE DETECTED (See below)
[2018-12-20 07:09] LABS: RED CELL DISTRIBUTION WIDTH 15.8 % (11.5-14.5)
[2018-12-20 07:33] LABS: UA SPECIFIC GRAVITY 1.015 (1.005-1.035); microscopic required? YES; urine erythrocyte 3+ (NEGATIVE)
[2018-12-20 10:09] LABS: RED BLOOD CELLS 2.35 M/mm3 (4.10-5.10)
[2018-12-20 14:41] LABS: PLATELET COUNT 222 x10^3mcL (130-400); RED CELL DISTRIBUTION WIDTH 15.6 % (11.5-14.5)
[2018-12-20 14:42] LABS: BASOPHIL % 0.9 % (0-2)
[2018-12-20 14:56] LABS: rbc morphology (normal/abnorm) ABNORMAL (NORMAL)
[2018-12-21] VITALS (8 sets, daily range): BP systolic 114–167; BP diastolic 53–88
[2018-12-21 02:46] LABS: CALCIUM 7.3 mg/dL (8.5-10.1); CARBON DIOXIDE 19.5 mmol/L (21-32); CREATININE SERUM 2.2 mg/dL (0.6-1.0); MAGNESIUM 1.7 mg/dL (1.8-2.4); PHOSPHOROUS 4.8 mg/dL (2.5-4.9); POTASSIUM SERUM 4.9 mmol/L (3.5-5.1)
[2018-12-21 02:56] LABS: BASOPHIL % 0.6 % (0-2); PLATELET COUNT 191 x10^3mcL (130-400)
[2018-12-21 02:58] LABS: RED CELL DISTRIBUTION WIDTH 15.8 % (11.5-14.5)
[2018-12-21 03:21] LABS: rbc morphology (normal/abnorm) ABNORMAL (NORMAL)
[2018-12-21 03:22] LABS: ovalocyte/elliptocyte 1+; tear drop cell (dacryocyte) 1+
[2018-12-21 21:15] LABS: BASOPHIL % 0.7 % (0-2); PLATELET COUNT 186 x10^3mcL (130-400)
[2018-12-21 21:20] LABS: RED CELL DISTRIBUTION WIDTH 15.9 % (11.5-14.5)
[2018-12-21 21:39] LABS: rbc morphology (normal/abnorm) ABNORMAL (NORMAL)
[2018-12-22 05:05] VITALS: BP 131/61
[2018-12-22 07:18] LABS: BASOPHIL % 0.5 % (0-2); PLATELET COUNT 207 x10^3mcL (130-400)
[2018-12-22 07:19] LABS: CALCIUM 7.8 mg/dL (8.5-10.1); CARBON DIOXIDE 18.5 mmol/L (21-32); CREATININE SERUM 1.9 mg/dL (0.6-1.0); PHOSPHOROUS 4.9 mg/dL (2.5-4.9); POTASSIUM SERUM 4.1 mmol/L (3.5-5.1)
[2018-12-22 07:23] LABS: RED CELL DISTRIBUTION WIDTH 15.9 % (11.5-14.5)
[2018-12-22 09:14] VITALS: BP 136/66
[2018-12-22 12:12] VITALS: BP 145/57
[2018-12-22 15:23] LABS: BASOPHIL % 0.7 % (0-2); PLATELET COUNT 205 x10^3mcL (130-400)
[2018-12-22 17:17] VITALS: BP 140/62
[2018-12-22 19:15] LABS: BASOPHIL % 0.4 % (0-2); PLATELET COUNT 198 x10^3mcL (130-400)
[2018-12-22 19:16] LABS: RED CELL DISTRIBUTION WIDTH 15.8 % (11.5-14.5)
[2018-12-22 19:33] LABS: rbc morphology (normal/abnorm) ABNORMAL (NORMAL)
[2018-12-22 20:50] VITALS: BP 160/47
[2018-12-23 05:10] VITALS: BP 164/66
[2018-12-23 06:04] LABS: BASOPHIL % 0.3 % (0-2); PLATELET COUNT 214 x10^3mcL (130-400)
[2018-12-23 06:20] LABS: CALCIUM 7.7 mg/dL (8.5-10.1); CARBON DIOXIDE 21.7 mmol/L (21-32); MAGNESIUM 1.7 mg/dL (1.8-2.4); PHOSPHOROUS 4.4 mg/dL (2.5-4.9); POTASSIUM SERUM 5.2 mmol/L (3.5-5.1)
[2018-12-23 06:21] LABS: RED CELL DISTRIBUTION WIDTH 15.4 % (11.5-14.5)
[2018-12-23 09:01] VITALS: BP 150/60
[2018-12-23 12:07] VITALS: BP 140/66
[2018-12-23] MEDS ORDERED: LACTULOSE10 GM/152 PO (13:08)
[2018-12-23 14:41] VITALS: BP 140/66
== END 2018-12-23 17:18 | disposition home or self-care (01) | DRG 253 ==
LOC: ED 16:18 → DU 18:24
PROVIDERS: Emergency Medicine; Internal Medicine Gastroenterology; ADMIT General Practice
PROC: 30233N1 Transfusion of Nonautologous Red Blood Cells into Peripheral Vein, Percutaneous Approach (ICD-10-PCS; 2018-12-19)
PROC: 0DJ08ZZ Inspection of Upper Intestinal Tract, Via Natural or Artificial Opening Endoscopic (ICD-10-PCS; principal; 2018-12-21 11:30)
PROC: 0DJD8ZZ Inspection of Lower Intestinal Tract, Via Natural or Artificial Opening Endoscopic (ICD-10-PCS; 2018-12-21 11:30)
PROC: 0W3P8ZZ Control Bleeding in Gastrointestinal Tract, Via Natural or Artificial Opening Endoscopic (ICD-10-PCS; 2018-12-22)
DX: K55.21 Angiodysplasia of colon with hemorrhage (principal); N17.0 Acute kidney failure with tubular necrosis; E83.51 Hypocalcemia; E44.1 Mild protein-calorie malnutrition; D62 Acute posthemorrhagic anemia; E11.22 Type 2 diabetes mellitus with diabetic chronic kidney disease; N18.4 Chronic kidney disease, stage 4 (severe); I13.0 Hypertensive heart and chronic kidney disease with heart failure and stage 1 through stage 4 chronic kidney disease, or unspecified chronic kidney disease; E87.8 Other disorders of electrolyte and fluid balance, not elsewhere classified; I50.32 Chronic diastolic (congestive) heart failure; K57.30 Diverticulosis of large intestine without perforation or abscess without bleeding; Z89.432 Acquired absence of left foot; Z79.82 Long term (current) use of aspirin; Z68.28 Body mass index [BMI] 28.0-28.9, adult; Z87.891 Personal history of nicotine dependence; Z79.84 Long term (current) use of oral hypoglycemic drugs; Z88.5 Allergy status to narcotic agent; Z88.8 Allergy status to other drugs, medicaments and biological substances; Z79.899 Other long term (current) drug therapy; Z86.711 Personal history of pulmonary embolism; Z90.49 Acquired absence of other specified parts of digestive tract; Z98.42 Cataract extraction status, left eye; Z83.3 Family history of diabetes mellitus
CPT/HCPCS: 43235; 45378; 82962; 84439; 97116-GP; C9113; G0378; J1200; J1610; J1815; J1940; J2060; J2250; J2310; J2405; J2765; J2916; J3010; J3490; J7030; J7040; J7042; J7050; P9016; Q0163

== ENCOUNTER 2019-04-20 13:27 | Inpatient (IN) | payer OTHER ==
[~2019-04-20] VITALS: Ht 157.5 cm; Wt 73.0 kg
[~2019-04-20 13:27] MED LIST changes: +LACTULOSE10 GM/152 PO; +MELATONIN3 MG PO; +MIRALAX17 GM/Dose PO; +PAROXETINE20 M1 PO; +SENNA8.6 M2 PO; +ZOF4 PO
[2019-04-20 13:49] VITALS: Ht 157.5 cm; Wt 73.0 kg
[2019-04-20 14:47] LABS: BASOPHIL % 0.8 % (0-2); PLATELET COUNT 280 x10^3mcL (130-400)
[2019-04-20 14:49] LABS: RED CELL DISTRIBUTION WIDTH 15.1 % (11.5-14.5)
[2019-04-20 15:04] LABS: BILIRUBIN TOTAL 0.3 mg/dL (0.20-1.00); CALCIUM 8.2 mg/dL (8.5-10.1); CREATININE SERUM 2.7 mg/dL (0.6-1.0); POTASSIUM SERUM 4.4 mmol/L (3.5-5.1)
[2019-04-20 15:08] LABS: ALBUMIN 3.3 g/dL (3.4-5.0)
[2019-04-20 15:33] LABS: rbc morphology (normal/abnorm) ABNORMAL (NORMAL)
[2019-04-20 17:09] LABS: CHOLESTEROL/HDL RATIO 4.4; MAGNESIUM 2.2 mg/dL (1.8-2.4); PHOSPHOROUS 4.9 mg/dL (2.5-4.9)
[2019-04-20 17:15] LABS: FREE T4 0.98 ng/dL (0.76-1.46); FREE THYROXINE INDEX 1.8 ug/dL (1.4-4.5); T4(THYROXINE) 5.6 ug/dL (4.7-13.3)
[2019-04-20 17:44] LABS: T3 TOTAL 0.82 ng/mL
[2019-04-20 19:02] VITALS: BP 137/61
[2019-04-20 21:07] VITALS: BP 123/61; BP 130/59
[2019-04-20 21:22] VITALS: BP 124/56
[2019-04-21] VITALS (7 sets, daily range): BP systolic 113–142; BP diastolic 50–78
[2019-04-21 06:39] LABS: CALCIUM 8.3 mg/dL (8.5-10.1); CARBON DIOXIDE 21.4 mmol/L (21-32); CREATININE SERUM 2.7 mg/dL (0.6-1.0); POTASSIUM SERUM 3.7 mmol/L (3.5-5.1)
[2019-04-21 06:51] LABS: BASOPHIL % 0.9 % (0-2); PLATELET COUNT 305 x10^3mcL (130-400)
[2019-04-21 18:33] LABS: UA SPECIFIC GRAVITY 1.015 (1.005-1.035); microscopic required? YES; urine erythrocyte NEGATIVE (NEGATIVE)
[2019-04-21 18:47] LABS: AMPHETAMINE QUAL UR NONE DETECTED (See below)
[2019-04-22 05:24] VITALS: BP 111/51
[2019-04-22 06:39] LABS: CALCIUM 8.1 mg/dL (8.5-10.1); CARBON DIOXIDE 22.5 mmol/L (21-32); CREATININE SERUM 2.6 mg/dL (0.6-1.0); MAGNESIUM 2.1 mg/dL (1.8-2.4); PHOSPHOROUS 5.5 mg/dL (2.5-4.9); POTASSIUM SERUM 4.5 mmol/L (3.5-5.1)
[2019-04-22 07:31] LABS: BASOPHIL % 0.4 % (0-2); PLATELET COUNT 314 x10^3mcL (130-400)
[2019-04-22 07:35] LABS: RED CELL DISTRIBUTION WIDTH 17.1 % (11.5-14.5)
[2019-04-22 07:54] VITALS: BP 137/56
[2019-04-22] MEDS ORDERED: APIDRA SOLOS100 U/ML IJ (11:02)
[2019-04-22 11:47] VITALS: BP 137/56
[2019-04-22 11:55] VITALS: BP 133/60
[2019-04-22] MEDS ORDERED: BASAGLAR K100 UNIT/1 SQ (12:50)
== END 2019-04-22 14:10 | disposition home or self-care (01) | DRG 190 ==
LOC: ED 13:27 → DU 16:23
PROVIDERS: Emergency Medicine; Internal Medicine; Internal Medicine Gastroenterology; ADMIT Family Medicine
PROC: 30233N1 Transfusion of Nonautologous Red Blood Cells into Peripheral Vein, Percutaneous Approach (ICD-10-PCS; 2019-04-20)
PROC: 0DB78ZX Excision of Stomach, Pylorus, Via Natural or Artificial Opening Endoscopic, Diagnostic (ICD-10-PCS; principal; 2019-04-21 09:30)
DX: I21.A1 Myocardial infarction type 2 (principal); N17.0 Acute kidney failure with tubular necrosis; I13.0 Hypertensive heart and chronic kidney disease with heart failure and stage 1 through stage 4 chronic kidney disease, or unspecified chronic kidney disease; I50.32 Chronic diastolic (congestive) heart failure; E44.0 Moderate protein-calorie malnutrition; E11.22 Type 2 diabetes mellitus with diabetic chronic kidney disease; E83.51 Hypocalcemia; K29.00 Acute gastritis without bleeding; K29.80 Duodenitis without bleeding; D64.9 Anemia, unspecified; N18.4 Chronic kidney disease, stage 4 (severe); H54.61 Unqualified visual loss, right eye, normal vision left eye; E78.5 Hyperlipidemia, unspecified; Z87.891 Personal history of nicotine dependence; Z88.8 Allergy status to other drugs, medicaments and biological substances; Z88.5 Allergy status to narcotic agent; Z89.432 Acquired absence of left foot; Z90.49 Acquired absence of other specified parts of digestive tract; Z86.711 Personal history of pulmonary embolism; Z79.4 Long term (current) use of insulin; Z68.29 Body mass index [BMI] 29.0-29.9, adult; Z88.6 Allergy status to analgesic agent; Z98.42 Cataract extraction status, left eye; Z83.3 Family history of diabetes mellitus; Z91.14 Patient's other noncompliance with medication regimen
CPT/HCPCS: 43235; 82962; 83880; 84439; 85378; 97116-GP; C9113; G0378; J1200; J1610; J1940; J2060; J2250; J2310; J2916; J3010; J3490; J7050; P9016; Q0163

== ENCOUNTER 2019-07-27 14:31 | Inpatient (IN) | payer OTHER ==
[~2019-07-27] VITALS: Ht 157.5 cm; Wt 75.7 kg
[2019-07-27 14:50] VITALS: Ht 157.5 cm; Wt 75.7 kg
--- NOTE | 2019-07-27 15:16 | NUR ---
49/F C/O GENERAL BODY WEAKNESS X THIS AM. PT AA/O X4. RESPE EVEN AND UNLABORED. PT STATES "I WENT TO PMD OFFICE THIS AM DUE TO GENERALIZED WEAKNESS. AND THEY SAID TO GO J=HOME AND CALL 911 AND COME TO ER TO BE SEEN. PMD IS DOING COVID TESTING IN THE OFFICE TODAY." PT STATES "I FEEL LIKE IM ANEMIC". ALSO STATES THAT DIZZY STARED THIS AM WHEN SHE GOT UP FROM BED. NO DIZZINESS WHILE LAYING IN BED. PT PLACED IN GOWN AND PLACED ON FULL CM. WHILE MOVING ON AND OFF OF BED WANG PT STATES " I FEEL SOB". EXPIRATORY WHEEZE HEARD TO AUSCULATION THOUGHOUT LUNGS. RESP EVEN AND UNLABORED. MSE COMPLETED BY DR BROWNING. LAB AT BED SIDE. PT LEGALLY BLIND IN RIGHT EYE AND HAS PROSTHETICS RIGHT FOOT. WILL CONT TO MONITOR.
[2019-07-27 15:36] LABS: UA SPECIFIC GRAVITY 1.025 (1.005-1.035); microscopic required? YES; urine erythrocyte 2+ (NEGATIVE)
[2019-07-27 15:41] LABS: BASOPHIL % 0.4 % (0-2); PLATELET COUNT 263 x10^3mcL (130-400)
[2019-07-27 15:42] LABS: RED CELL DISTRIBUTION WIDTH 14.7 % (11.5-14.5)
--- NOTE | 2019-07-27 16:03 | NUR ---
PT RESTING IN POSITION OF COMFORT ASKING FOR THE DOOR TO BE LEFT OPEN. RESP EVEN AND UNLABORED. AWAKE AND ALERT. WILL CONT TO MONITOR.
[2019-07-27 16:30] LABS: CALCIUM 7.6 mg/dL (8.5-10.1); CARBON DIOXIDE 22.9 mmol/L (21-32); CREATININE SERUM 2.2 mg/dL (0.6-1.0); POTASSIUM SERUM 4.9 mmol/L (3.5-5.1)
[2019-07-27 16:34] LABS: BILIRUBIN TOTAL 0.3 mg/dL (0.20-1.00); TOTAL PROTEIN, SERUM 6.9 g/dL (6.4-8.2)
--- NOTE | 2019-07-27 16:40 | NUR ---
PT GOT UP AND USING RESTROOM UPON RETURNING STATES THAT SHE FEELS "WINDED". RESP EVEN AND UNLABORED. PT PLACED BACK ON FULL CM. AWAKE AND ALERT. RESTING IN POSITION OF COMFORT.
--- NOTE | 2019-07-27 18:28 | NUR ---
PT GIVEN BLANKET UPON REQUEST. PT AAO4, NO DISTRESS.
[2019-07-27 19:22] LABS: CHOLESTEROL/HDL RATIO 3.6
--- NOTE | 2019-07-27 19:34 | NUR ---
REPORT TO JERILYN CARRERO TO ASSUME CARE OF PT.
[2019-07-27 19:43] LABS: AMPHETAMINE QUAL UR NONE DETECTED (See below)
--- NOTE | 2019-07-27 20:15 | NUR ---
REPORT GIVEN TO MAGAN THOMSON TO ASSUME CARE OF PT.
--- NOTE | 2019-07-27 20:18 | NUR ---
FLOOR CALLED STS THE ROOM IS BEING CLEAN, WILL KEEP HOLD PT UNTIL ROOM CLEANED
--- NOTE | 2019-07-27 20:55 | NUR ---
PT TRANSFERRED TO TELE FLOOR ACCOMPANIED BY NURSE AND EMT. NO S/S OF DISTRESS. RESP E/U. IV SITE PATENT, NO S/S OF INFILTRATION.
[2019-07-27 21:06] VITALS: BP 174/64
--- NOTE | 2019-07-27 21:30 | NUR ---
PT ADMITTED TO MED SURG TELE VIA GUERNEY FROM ED, ACCOMPANIED BY NURSE. PT ADMITTED FOR NEAR SYNCOPE, ELEVATED TROPONIN, CC: GENERALIZED WEAKNESS. VITAL SIGNS WNL. AA/O X 4, ABLE TO MAKE NEEDS KNOWN, CLEAR SPEECH, DENIES HEADACHE/ DIZZINESS AT THIS TIME. BLINDNESS TO RIGHT EYE. PT ON TELE MONITOR 27 NSR HR 65, DENIES CHEST PAIN/ CHEST PRESSURE. RADIAL PULSES PALPABLE, RIGHT PEDAL PULSE MODERATE, LEFT FOOT AMPUTATED. LUNG SOUNDS CTA, ON RA. NO RESPIRATORY DISTRESS, NO SOB. ACTIVE BS X 4 QUADS, ABD SOFT AND NON TENDER/ NON DISTENDED. DENIES N/V. PT STATED SHE HAD DIARRHEA THIS MORNING BEFORE COMING TO ED. PT VOID FREELY. GENERALIZED WEAKNESS, USES WHEELCHAIR FOR LONG DISTANCES. SCATTERED ECCYMOSIS TO BUE. LEFT FOOT AMPUTATED. IV TO LW INTACT, SL. IV FLUSHES WELL, NO REDNESS AND NO INFILTRATION. PT DENIES PAIN AT THIS TIME. ALL DUE MEDICATIONS GIVEN ORDERED. ALL QUESTIONS AND CONCERNS ADDRESSED. CALL BUTTON WITHIN REACH. WILL CONTINUE TO MONITOR.
[2019-07-27 22:30] VITALS: BP 174/64
--- NOTE | 2019-07-27 22:40 | NUR ---
PT COMPLAINED OF FEELINGS OF RESTLESSNESS AND INABILITY TO RELAX. RESIDENT DR. NIX MADE AWARE. ONE TIME ORDER FOR ATIVAN GIVEN ORDERED. PT TOLERATED MEDICATION WELL. WILL CONTINUE TO MONITOR.
[2019-07-27 23:11] VITALS: BP 174/64
[2019-07-28 00:05] VITALS: BP 144/55
--- NOTE | 2019-07-28 00:15 | NUR ---
PT IN BED RESTING AT THIS TIME. BP RE-ASSESSED, 144/55 (84) HR 63. RESPIRATIONS EVEN AND UNLABORED ON RA. NO COMPLAINS OF PAIN AT THIS TIME. SAFETY PRECAUTIONS IN PLACE. NO ACUTE DISTRESS AT THIS TIME. CALL BUTTON WITHIN REACH, WILL CONTINUE TO MONITOR.
--- NOTE | 2019-07-28 00:30 | NUR ---
SPOKE WITH DR. NIX REGARDING ELEVATED TROPONIN LEVEL. STATED NOT TO HAVE TROPONIN DRAWN Q8H AT THIS TIME. DR. 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 NO NEW ORDERS AT THIS TIME. WILL CONTINUE TO MONITOR.
[2019-07-28 06:01] VITALS: BP 151/61
[2019-07-28 06:32] LABS: BASOPHIL % 0.6 % (0-2); PLATELET COUNT 233 x10^3mcL (130-400)
--- NOTE | 2019-07-28 06:40 | NUR ---
PT SLEPT IN INTERVALS THROUGHOUT THE SHIFT, BUT EASILY AROUSABLE. RESPIRATIONS EVEN AND UNLABORED. PT REPORTED FEELINGS OF ANXIETY, MEDICATED WITH ATIVAN PRN PER ORDER. NO COMPLAINTS OF PAIN AT THIS TIME. ALL CONCERNS ADDRESSED. NO ACUTE CHANGES OVERNIGHT. CALL BUTTON WITHIN REACH, WILL CONTINUE TO MONITOR.
[2019-07-28 06:43] LABS: CALCIUM 7.4 mg/dL (8.5-10.1); CARBON DIOXIDE 20.5 mmol/L (21-32); CREATININE SERUM 2.2 mg/dL (0.6-1.0); PHOSPHOROUS 4.5 mg/dL (2.5-4.9); POTASSIUM SERUM 4.8 mmol/L (3.5-5.1)
[2019-07-28 06:58] LABS: RED CELL DISTRIBUTION WIDTH 14.6 % (11.5-14.5)
--- NOTE | 2019-07-28 07:40 | NUR ---
RECEIVED PATIENT FROM NIGHT NURSE, ALERT AND ORIENTED X 4, ABLE TO VERBALIZE NEEDS, NO C/O PAIN, LUNG SOUNDS CLEAR, ON RA, NO SOB, ABLE TO AMBULATE INDEPENDENTLY, L FOOT AMPUTATION, PROSTHETIC IN PLACE, SALINE LOCK IN LW PATENT AND FLUSHING, ON TELEMETRY CURRENTLY NS 68, BOWEL SOUNDS ACTIVE LAST BM 07/26, SKIN INTACT, PEDAL PULSES PRESENT, NO EDEMA NOTED, PATIENT VOIDS INDEPENDENTLY, CALM AND COOPERATIVE
[2019-07-28 08:08] VITALS: BP 127/64
--- NOTE | 2019-07-28 08:12 | NUR ---
ECHOCARDIOGRAM PENDING-LAST ECHO 04/22/19
[2019-07-28 12:04] VITALS: BP 139/55
--- NOTE | 2019-07-28 12:20 | NUR ---
PATIENT REPORTS ANXIETY AND REQUESTING PRN, ATIVAN ADMINISTERED PER EMAR, WILL CONTINUE TO MONITOR SYMPTOMS
--- NOTE | 2019-07-28 13:20 | NUR ---
PATIENT REPORTS S/X OF ANXIETY DECREASED, ATIVAN EFFECTIVE,WILL CONTINUE TO MONITOR
--- NOTE | 2019-07-28 15:00 | NUR ---
PATIENT REPORTS FEELING ANXIOUS, DOES NOT FEEL ATIVAN WAS EFFECTIVE, TELEPHONE CALL TO TO REQUEST ANOTHER MEDICATION
[2019-07-28 16:10] VITALS: BP 172/76
--- NOTE | 2019-07-28 17:45 | NUR ---
PATIENT SITTING IN BED C/O ANXIETY, PRN ATIVAN ALREADY ADMINISTERED, ADVISED PATIENT NEXT DOSE WILL BE GIVEN WHEN AVAILABLE, WILL ENDORSE CARE TO PM NURSE
--- NOTE | 2019-07-28 20:12 | NUR ---
PT RECIEVED FROM DAY SHIFT NURSE. PT IS RESTING IN BED AT THIS TIME. PT REQUESTED ATIVAN. WILL ADMINISTERED PRN. PT IS A/O X4, AGGITATED. PT IS TELE 27, NSR. PT HAS PAPABLE PULSES, NO EDEMA AT THIS TIME. LUNG SOUNDS CTA, RA, 97%. PT HAS ACTIVE BOWEL SOUNDS. PT IS ABLE TO SELF VOID. PT HAS GENERALIZED WEAKNESS BUT IS ABLE TO AMBULATE. PT HAS L FOOT AMPUTATION, NO ERYTHEMA PRESENT, CLEAN AND DRY. PT HAS NO WOUNDS. DENIES PAIN AT THIS MOMENT. PT HAS A IV ON THE L WRIST, 20G, PATENT, CDI. CALL LIGHT WITHIN REACH. WILL CONTINUE TO MONITOR.
[2019-07-28 20:42] VITALS: BP 162/82
--- NOTE | 2019-07-28 21:38 | NUR ---
PT C/O SHE UNABLE TO SLEEP. PT ALREADY RECEIVED 2 DOSE ATIVAN IVP TOTAL 4MG. PT IS YELLING, I NEED SOME THING STRONGER. QUESTION PT WHAT SHE MEAN SOMETHING STRONGER. SHE STATE I DON'T CARE I WANT SOMETHING STRONGER SO I CAN FALL INTO SLEEP. CALLED DR. NIX REGARDING THE PT REQUEST. REFUSED TO ORDER MORE MEDICATION FOR THE PT. INFORM THE PRIMARY NURSE.
--- NOTE | 2019-07-29 00:25 | NUR ---
PT RESTING IN BED AT THIS TIME. PT C/O OF RESTLESSNESS, PRN MEDICATION GIVEN. PT IS ON RMA, PT DENIES SOB, NO RESPIRATORY DISTRESS NOTED AT THIS TIME. PT WAS ABLE TO VOID, YELLOW URINE. PT DENIES PAIN. ALL MEDS AND CONCERNS MET AT THIS TIME. WILL CONTINUE TO MONITOR.
[2019-07-29 05:16] VITALS: BP 150/68
--- NOTE | 2019-07-29 05:57 | NUR ---
PT RESTING IN BED AT THIS TIME. PT BREATHING, E/U, ON RMA, SP02 98%. PT DENIES SOB OR RESPIRATORY DIFFICULTIES. PT PULSE 97, DENIES CP OR PALPITATIONS. PT DENIES PAIN OR DISCOMFORT. ALL NEEDS AND CONCERN MET THIS SHIFT. NO ACUTE DISTRESS NOTED. CALL LIGHT WITHIN REACH. WILL ENDORSE TO DAY SHIFT NURSE.
[2019-07-29 06:49] LABS: BASOPHIL % 0.3 % (0-2); PLATELET COUNT 283 x10^3mcL (130-400)
[2019-07-29 06:50] LABS: CALCIUM 7.7 mg/dL (8.5-10.1); CARBON DIOXIDE 21.1 mmol/L (21-32); CREATININE SERUM 2.6 mg/dL (0.6-1.0); MAGNESIUM 1.9 mg/dL (1.8-2.4); PHOSPHOROUS 4.8 mg/dL (2.5-4.9); POTASSIUM SERUM 4.7 mmol/L (3.5-5.1)
[2019-07-29 06:55] LABS: RED CELL DISTRIBUTION WIDTH 14.9 % (11.5-14.5)
--- NOTE | 2019-07-29 07:39 | NUR ---
CANCELLATION REQUESTED FOR ECHOCARDIOGRAM
--- NOTE | 2019-07-29 08:00 | NUR ---
PT RECEIVED FROM PM NURSE. PT IS RESTING COMFORTABLY AT THIS TIME. NO C/O PAIN, FACIAL DISTRESS NOTED. PT IS A/O X4. COOPERATIVE. TELE #27. NSR. LUNG SOUNDS CTA ON RA SATTING AT 98%. DENIES SOB. PALPABLE PULSES EVEN AND MODERATE. NO EDEMA NOTED AT THIS TIME. BOWEL SOUNDS NORMACTIVE X4. ABD IS SOFT AND NON DISTENDED. GENERALIZED WEAKNESS NOTED BUT AMBULATORY. PT HAS L FOOT AMPUTATION WITH CDI, NO ERYTHEMA NOTED. SKIN INTACT. IV ON L WRIST 20G. PATENT AND INTACT. CALL LIGHT WITHIN REACH. BED AT LOWEST POSITION. WILL CONTINUE TO MONITOR.
[2019-07-29 09:15] VITALS: BP 147/65
[2019-07-29 12:12] VITALS: BP 155/58
--- NOTE | 2019-07-29 16:52 | NUR ---
DR. GAN CAME TO SEE PT AT BEDSIDE. CLEARED HER FOR DISCHARGE. DR. JARQUIN MADE AWARE AND AGREED TO INITIATE THE DISCHARGE PROCESS.
[2019-07-29] MEDS ORDERED: FLE10 PO (17:06)
[2019-07-29 17:08] VITALS: BP 139/73
[2019-07-29 17:45] VITALS: BP 121/75
--- NOTE | 2019-07-29 18:36 | NUR ---
REVIEWED DISCHARGE INSTRUCTIONS WITH PATIENT. PT VERBALIZED UNDERSTANDING. PT DISCHARGED VIA WHEELCHAIR WITH MEDICATION LIST AND INSTRUCTIONS. IV AND TELE MONITOR DCED. PT LEFT HOSPITAL WITH MOTHER TO HOME SELF CARE.
== END 2019-07-29 18:35 | disposition home or self-care (01) | DRG 190 ==
LOC: ED 14:31 → DU 17:46 → MU 17:46 → DU 07-28 08:26
PROVIDERS: Emergency Medicine; Family Medicine; ADMIT Internal Medicine; ATTEND Internal Medicine
DX: I21.A1 Myocardial infarction type 2 (principal); N17.0 Acute kidney failure with tubular necrosis; I50.33 Acute on chronic diastolic (congestive) heart failure; E44.0 Moderate protein-calorie malnutrition; E11.22 Type 2 diabetes mellitus with diabetic chronic kidney disease; I13.0 Hypertensive heart and chronic kidney disease with heart failure and stage 1 through stage 4 chronic kidney disease, or unspecified chronic kidney disease; D64.9 Anemia, unspecified; N18.4 Chronic kidney disease, stage 4 (severe); E78.5 Hyperlipidemia, unspecified; Z79.899 Other long term (current) drug therapy; Z79.4 Long term (current) use of insulin; Z83.3 Family history of diabetes mellitus; Z87.891 Personal history of nicotine dependence; Z68.30 Body mass index [BMI] 30.0-30.9, adult; Z86.711 Personal history of pulmonary embolism; Z88.5 Allergy status to narcotic agent; Z88.6 Allergy status to analgesic agent
CPT/HCPCS: 82962; 83880; 94150; C9113; G0378; J1815; J1940; J2060; Q0092; Q0163

== ENCOUNTER 2019-10-07 13:14 | Inpatient (IN) | payer OTHER ==
[~2019-10-07] VITALS: Ht 157.5 cm; Wt 74.6 kg
[~2019-10-07 13:14] MED LIST changes: +FLE10 PO
[2019-10-07 14:18] LABS: BASOPHIL % 0.5 % (0-2); PLATELET COUNT 315 x10^3mcL (130-400); RED CELL DISTRIBUTION WIDTH 16.1 % (11.5-14.5)
[2019-10-07 14:22] LABS: BILIRUBIN TOTAL 0.4 mg/dL (0.20-1.00); CALCIUM 7.8 mg/dL (8.5-10.1); CARBON DIOXIDE 29.2 mmol/L (21-32); CREATININE SERUM 2.8 mg/dL (0.6-1.0); POTASSIUM SERUM 5.4 mmol/L (3.5-5.1); TOTAL PROTEIN, SERUM 7.1 g/dL (6.4-8.2)
[2019-10-07 14:24] LABS: ALBUMIN 3.1 g/dL (3.4-5.0)
[2019-10-07 16:51] LABS: CHOLESTEROL/HDL RATIO 5.2
[2019-10-07 17:17] VITALS: BP 175/77
[2019-10-07 17:24] VITALS: Ht 157.5 cm; Wt 74.6 kg
[2019-10-07 17:55] VITALS: BP 135/72
[2019-10-07 19:32] LABS: microscopic required? YES; urine erythrocyte 1+ (NEGATIVE)
[2019-10-07 19:47] LABS: AMPHETAMINE QUAL UR NONE DETECTED (See below)
[2019-10-07 20:18] VITALS: BP 147/67
[2019-10-08 05:07] VITALS: BP 177/79
[2019-10-08 06:33] LABS: BASOPHIL % 0.6 % (0-2); PLATELET COUNT 269 x10^3mcL (130-400)
[2019-10-08 06:44] LABS: CALCIUM 7.9 mg/dL (8.5-10.1); CREATININE SERUM 2.7 mg/dL (0.6-1.0); MAGNESIUM 2.3 mg/dL (1.8-2.4); PHOSPHOROUS 6.1 mg/dL (2.5-4.9); POTASSIUM SERUM 4.5 mmol/L (3.5-5.1)
[2019-10-08 06:45] LABS: RED CELL DISTRIBUTION WIDTH 15.8 % (11.5-14.5)
[2019-10-08 07:59] VITALS: BP 150/46
[2019-10-08 16:04] VITALS: BP 150/67
[2019-10-08 19:32] VITALS: BP 173/77
[2019-10-09 05:45] VITALS: BP 155/68
[2019-10-09 08:03] LABS: BILIRUBIN TOTAL 0.3 mg/dL (0.20-1.00); CALCIUM 7.8 mg/dL (8.5-10.1); CREATININE SERUM 2.4 mg/dL (0.6-1.0); POTASSIUM SERUM 4.3 mmol/L (3.5-5.1); TOTAL PROTEIN, SERUM 6.6 g/dL (6.4-8.2)
[2019-10-09 08:04] LABS: ALBUMIN 2.8 g/dL (3.4-5.0)
[2019-10-09 08:31] LABS: BASOPHIL % 0.7 % (0-2); PLATELET COUNT 279 x10^3mcL (130-400)
[2019-10-09 08:32] LABS: RED CELL DISTRIBUTION WIDTH 16.1 % (11.5-14.5)
[2019-10-09 18:37] VITALS: BP 152/82
[2019-10-09 21:00] VITALS: BP 182/50
[2019-10-10 06:00] VITALS: BP 114/60
[2019-10-10 07:42] LABS: BILIRUBIN TOTAL 0.3 mg/dL (0.20-1.00); CALCIUM 8.1 mg/dL (8.5-10.1); CARBON DIOXIDE 28.5 mmol/L (21-32); CREATININE SERUM 2.5 mg/dL (0.6-1.0); TOTAL PROTEIN, SERUM 6.2 g/dL (6.4-8.2)
[2019-10-10 07:49] LABS: ALBUMIN 2.7 g/dL (3.4-5.0)
[2019-10-10 08:23] VITALS: BP 158/59
[2019-10-10] MEDS ORDERED: ATORVASTATIN CA40 M1 PO (12:14)
[2019-10-10] MEDS ORDERED: CARVEDILOL6.25 M1 PO (12:16)
[2019-10-10] MEDS ORDERED: HYDRALAZINE HCL25 MG PO (12:16)
[2019-10-10] MEDS ORDERED: LASIX40 MG PO (12:18)
[2019-10-10] MEDS ORDERED: AMARYL4 MG PO (12:22)
[2019-10-10] MEDS ORDERED: ATIVAN1 MG PO (12:24)
[2019-10-10] MEDS ORDERED: ULTRAM50 MG PO (12:25)
[2019-10-10 13:52] VITALS: BP 148/74
== END 2019-10-10 14:24 | disposition home or self-care (01) ==
LOC: ED 13:14 → DU 16:01 → MU 10-09 16:11
PROVIDERS: Emergency Medicine; ADMIT Internal Medicine; ATTEND Internal Medicine
DX: K80.20 Calculus of gallbladder without cholecystitis without obstruction (principal); N17.0 Acute kidney failure with tubular necrosis; I13.0 Hypertensive heart and chronic kidney disease with heart failure and stage 1 through stage 4 chronic kidney disease, or unspecified chronic kidney disease; I50.32 Chronic diastolic (congestive) heart failure; N18.4 Chronic kidney disease, stage 4 (severe); E11.21 Type 2 diabetes mellitus with diabetic nephropathy; E44.0 Moderate protein-calorie malnutrition; E11.22 Type 2 diabetes mellitus with diabetic chronic kidney disease; E78.5 Hyperlipidemia, unspecified; D64.9 Anemia, unspecified; J44.9 Chronic obstructive pulmonary disease, unspecified; E78.00 Pure hypercholesterolemia, unspecified; D63.8 Anemia in other chronic diseases classified elsewhere; Z86.711 Personal history of pulmonary embolism; Z88.5 Allergy status to narcotic agent; Z88.8 Allergy status to other drugs, medicaments and biological substances; Z89.432 Acquired absence of left foot; Z90.49 Acquired absence of other specified parts of digestive tract; Z98.42 Cataract extraction status, left eye; Z79.899 Other long term (current) drug therapy; Z91.14 Patient's other noncompliance with medication regimen
CPT/HCPCS: 78226; 82962; 83880; A9537; G0378; J0360; J1815; J1885; J2060; J2405; J3010; J7030; J7042; Q0092

== ENCOUNTER 2020-01-27 10:51 | Inpatient (IN) | payer OTHER ==
[~2020-01-27] VITALS: Ht 162.6 cm; Wt 77.1 kg
[~2020-01-27 10:51] MED LIST changes: +ATIVAN1 MG PO; +ULTRAM50 MG PO
[2020-01-27 11:17] VITALS: Ht 162.6 cm; Wt 77.1 kg
--- NOTE | 2020-01-27 11:25 | NUR ---
PT BIB [facility] FOR EVAL OF RUQ PAIN.PT HAS HX OF PREVIOUS DIAGNOSED CHOLEYSISTITIS;PT WAS TOLD BY HER PRIMARY TO "WAIT UNTIL IT IS AN EMERGENCY BECAUSE YOU ARE A HIGH RISK FOR STROKE AND HEART ATTACK ON THE TABLE"; PT HAS HAD SOME NAUSEA; SEEN BY PROVIDER RAJI BEAULIEU
[2020-01-27 12:23] LABS: BASOPHIL % 0.7 % (0-2); PLATELET COUNT 290 x10^3mcL (130-400)
[2020-01-27 12:24] LABS: CALCIUM 8.1 mg/dL (8.5-10.1); CARBON DIOXIDE 24.9 mmol/L (21-32); CREATININE SERUM 2.4 mg/dL (0.6-1.0); POTASSIUM SERUM 5.5 mmol/L (3.5-5.1); RED CELL DISTRIBUTION WIDTH 16.3 % (11.5-14.5)
[2020-01-27 12:28] LABS: BILIRUBIN TOTAL 0.43 mg/dL (0.20-1.00); TOTAL PROTEIN, SERUM 6.8 g/dL (6.4-8.2)
--- NOTE | 2020-01-27 12:30 | NUR ---
PT SEEN BY PROVIDER, ORDERS RECD; PT RESTING WELL; ULTRASOUND AT BEDSIDE FOR FURTHER EVAL
--- NOTE | 2020-01-27 13:10 | NUR ---
PARTIAL LABS RTND; PT NOTED TO HAVE WORSENING IN RENAL FUNCTIONS; PT INSTRUCTED OF PROBABLE ADMIT, VERBALIZED UNDERSTANDING
[2020-01-27 13:17] LABS: ALBUMIN 2.9 g/dL (3.4-5.0)
--- NOTE | 2020-01-27 14:30 | NUR ---
PT WILL BE ADMITTED, GEN SURGEON CALLED FOR FURTHER ASSESSMENT
[2020-01-27 14:40] LABS: UA SPECIFIC GRAVITY 1.015 (1.005-1.035); microscopic required? YES; urine erythrocyte 1+ (NEGATIVE)
--- NOTE | 2020-01-27 15:00 | NUR ---
BED ASSIGNMENT RECD; PT SEEN BY GEN SURGEON; WILL BE ABLE TO HAVE A CLR LIQUID DIET; PT MEDICATED PER ORDER, KYLE WELL
[2020-01-27 15:03] LABS: AMPHETAMINE QUAL UR NONE DETECTED (See below)
--- NOTE | 2020-01-27 16:29 | NUR ---
RECEIVED PATIENT FROM ED NURSE. PT A/O X4, TELE#47, NSR.DENIES PAIN, GOLDSTEIN, CHEST PAIN, SOB. NO RESP DISTRESS NOTED. BREATHING EVEN, UNLABORED. PERIPHERAL PULSES PALPABLE, SKIN WARM, PINK, CDI. LAST BM THIS MORNING, STOOL SOFT/FORMED. VOIDS. IV ACCESS TO RAC, PATENT, SITE CLEAR, INTACT. CALL LIGHT WITHIN REACH, BED AT LOWEST POSITION. WILL CONTINUE TO MONITOR
[2020-01-27 16:53] VITALS: BP 144/64
[2020-01-27 17:00] VITALS: BP 144/64
--- NOTE | 2020-01-27 17:00 | NUR ---
PT BLOOD GLUCOSE 50, ORANGE JUICE GIVEN.
--- NOTE | 2020-01-27 17:20 | NUR ---
BLOOD GLUCOSE 51 AT THIS TIME, ANOTHER ORANGE JUICE GIVEN
--- NOTE | 2020-01-27 17:24 | NUR ---
GLU CHECK AT THIS TIME IS 63, PT ASYMPTOMATIC, ANOTHER ORANGE JUICE WITH 2 TSB SUGAR GIVEN. WILL CONT. TO MONITOR AND RECHECK GLU LEVEL
--- NOTE | 2020-01-27 17:48 | NUR ---
BS 134 AT THIS TIME AFTER 3 ORANGE JUICE GIVEN EVERY 15MIN. PT RESTING IN BED NOW. NS RUNNING AT 80ML/HR TO RAC INFUSING WELL, SITE CLEAR INTACT.
--- NOTE | 2020-01-27 17:51 | NUR ---
[facility] COLLECTED AND SENT TO LAB
[2020-01-27 18:05] VITALS: BP 172/68
--- NOTE | 2020-01-27 18:10 | NUR ---
CALLED DR BAILEY TO REPORT BLOOD GLUCOSE AND VERIFY IF PT STILL NPO.
--- NOTE | 2020-01-27 18:30 | NUR ---
PT RESTING IN BED. CALLED DR BAILEY AND SPOKE WITH ATTENDANT T0 NOTIFY BS 50 AND INCREASE 134 AFTER 3 ORANGE JUICE. IV ACCESS TO RAC 20G NS RUNNING AT 80ML/HR INFUSING WELL, SITE INTACT. NO RESP DISTRESS. WILL ENDORSE TO SUPERINTENDENT [employer] OPERATIONS NURSE.
--- NOTE | 2020-01-27 19:08 | NUR ---
NURSING CO-SIGN THE DOCUMENTATION ENTERED BY THE RN ADRIA HAS BEEN REVIEWED. REVIEWED/CO-SIGNED BY: Kathy Hernadez DOCUMENTATION DONE BY:RAMON SUAZO
--- NOTE | 2020-01-27 19:43 | NUR ---
RECEIVED PT FROM DAY SHIFT NURSE. PT SLEEPING AT THIS TIME. NO SIGNS OF ACUTE DISTRESS NOTED. RR EVEN AND UNLABORED ON RA. NO WHEEZING NOTED AT THIS TIME. PULSES PALPABLE. NO EDEMA NOTED. PT VOIDS FREELY. DAY SHIFT REPORTED L ARM WEAKNESS. AMBULATORY. SKIN INTACT. NO C/O PAIN OR DISCOMFORT NOTED. IV TO RAC INFUSING NS AT 80ML/HR, PATENT AND INTACT. CALL LIGHT WITHIN REACH. WILL CONTINUE TO MONITOR.
[2020-01-27 20:44] VITALS: BP 167/77
--- NOTE | 2020-01-27 22:20 | NUR ---
SPOKE WITH DR. PETERSON REGARDING PTS ELEVATED TROPONIN. REQUESTING CARDIAC CONSULT WILL PAGE DENIZ FOR NEW ORDERS.
--- NOTE | 2020-01-27 22:56 | NUR ---
SPOKE WITH DR. GUAMAN REGARDING NEW ORDERS. ORDER FOR TROPONIN DRAW NOW AND X2 Q3HR, ECHO, AND FOR CARDIAC CONSULT. ALSO RECEIVED NEW PAIN MEDICATION ORDERS, WILL MEDICATE ONCE PHARMACY VERIFIES.
[2020-01-28 00:21] VITALS: BP 144/60
--- NOTE | 2020-01-28 00:53 | NUR ---
LAB REPORTED CRITICAL LAB VALUE OF TROPONIN OF 0.209.
--- NOTE | 2020-01-28 01:42 | NUR ---
PT SLEEPING AT THIS TIME. NO SIGNS OF ACUTE DISTRESS. WILL CONTINUE TO MONITOR.
--- NOTE | 2020-01-28 02:30 | NUR ---
PT REPORTED NAUSEA AND VOMITING AT THIS TIME. NO SIGNS OF ACUTE DISTRESS NOTED. RR EVEN AND UNLABORED ON RA. NO C/O PAIN OR DISCOMFORT NOTED. WILL MEDICATE PT PER APR.
--- NOTE | 2020-01-28 04:30 | NUR ---
TROPONIN LAB VALUE 0.206.
[2020-01-28 05:45] VITALS: BP 139/65
--- NOTE | 2020-01-28 06:33 | NUR ---
PT AWAKE, LAB AT BEDSIDE. IVF FLUIDS INFUSING. NO SIGNS OF ACUTE DISTRESS NOTED. RR EVEN AND UNLABORED ON RA. NO WHEEZING NOTED. CALL LIGHT WITHIN REACH. BED IN LOWEST POSITIN. ALL NEEDS/CONCERNS ADDRESSED THROUGHOUT THE SHIFT. WILL ENDORSE CARE TO ONCOMING SHIFT NURSE.
--- NOTE | 2020-01-28 07:18 | NUR ---
RECEIVED PT FROM PRINTING MACHINE OPERATOR TAPE RULES NURSE. PT RESTING IN BED. BREATHING EVEN, UNLABORED, NO RESP DISTRESS NOTED. TELE#[id number]. PERIPHERAL PULSES PALPABLE, SKIN WARM, PINK, CAP REFILL<3SECS, NO EDEMA NOTED. AT ROOM AIR. LAST BM 01/27/20. BOWEL SOUND ACTIVE Y5LCEUM. VOIDS. L ARM AND LEG WEAKNESS, L FOOT AMPUTATION. DENIES PAIN, N/V, SOB AT THIS TIME, IV ACCESS TO RAC 20G, RUNNING D5 1/2NS AT 100ML/HR INFUSING WELL, SITE CLEAR. SAFETY MEASURE IN PLACE, CALL LIGHT WITHIN REACH, BED AT LOWEST POSITION.
[2020-01-28 07:30] LABS: BILIRUBIN TOTAL 0.36 mg/dL (0.20-1.00); CALCIUM 8.2 mg/dL (8.5-10.1); CARBON DIOXIDE 24.8 mmol/L (21-32); CHOLESTEROL/HDL RATIO 3.3; CREATININE SERUM 2.8 mg/dL (0.6-1.0); MAGNESIUM 2.3 mg/dL (1.8-2.4); POTASSIUM SERUM 5.1 mmol/L (3.5-5.1); TOTAL PROTEIN, SERUM 6.5 g/dL (6.4-8.2)
[2020-01-28 07:31] LABS: ALBUMIN 2.7 g/dL (3.4-5.0)
[2020-01-28 08:24] LABS: BASOPHIL % 0.4 % (0-2); PLATELET COUNT 312 x10^3mcL (130-400)
[2020-01-28 09:18] LABS: RED CELL DISTRIBUTION WIDTH 15.8 % (11.5-14.5)
[2020-01-28 10:25] VITALS: BP 174/54
--- NOTE | 2020-01-28 10:58 | NUR ---
C/O ABD PAIN 9/10, MORPHINE IVP GIVEN. PT HAS BEEN TOLERATED WELL, NO ALLERGIC REACTION NOTED.
--- NOTE | 2020-01-28 11:00 | NUR ---
C/O ABD PAIN 11/04, DILAUDID GIVEN
--- NOTE | 2020-01-28 14:15 | NUR ---
NURSING CO-SIGN THE DOCUMENTATION ENTERED BY THE RN ADRIA HAS BEEN REVIEWED. REVIEWED/CO-SIGNED BY: Kathy Hernadez DOCUMENTATION DONE BY: RAMON SUAZO
--- NOTE | 2020-01-28 14:15 | NUR ---
RECEIVED PATIENT FROM 237B GO INTO 201B, ALERT AND ORIENTED X4, DENIES PAIN. PT REPORT JUST FEEL NAUSEATED, NO VOMITING NOTED. GAVE EMESIS BAG. IV TO RAC #20G INTACT/PATENT, NO REDNESS NOTED. CONNECTED TO IVF D51/2NS AT 100ML/HR. UPDATE POC AND DROPLET PRECAUTIONS. PATIENT IS NPO AT THIS TIME, PT REQUEST TO CALL MD FOR SOMETHING TO EAT, NEEDS MET. CALL LIGHT WITHIN REACH.
--- NOTE | 2020-01-28 14:22 | NUR ---
PT TRANSFER TO 2S FOR ISOLATION TO R/O CVD. PT LEFT WITH STABLE CONDITION, NO RESP DISTRESS, O2 SAT 95-96% AT NC 2L. IV ACCESS TO RAC, PATENT, SITE CLEAR WNL.PT BELINGING TRANSFERED WITH PATIENT. PT TRANSFERS ON WHEELCHAIR.
--- NOTE | 2020-01-28 15:00 | NUR ---
SPOKE TO DR. FLOYD RE: PATIENT SURGERY ON HOLD UNTIL PCR RESULT COME BACK. PER DR. FLOYD OKAY TO GIVE PATIENT CL LIQUID DIET FOR DINNER AND NPO AFTER MN. ORDER IS CARRY OUT.
--- NOTE | 2020-01-28 17:09 | NUR ---
PATIENT SIT UP AT SIDE OF BED INDEPENDENTLY, NO DISTRESS NOTED. GAVE JELLO AND SODA PER REQUSTED, BLOOD SUGAR 150 NO COVERAGE NEEDED. INFORM PATIENT DOCTOR OKAY FOR CL LIQUID DIET AND CONT NPO P MN. MEDICATED FOR PABD PAIN 10/04 WITH DILAUDID 0.5MG IVP, IV TO CASSANDRA PATENT FLUSH FREELY, KEEP D51/2NS AT 10ML/HR. WILL INCREASE WHEN PT CHANGE TO NPO. NEEDS MET. CALL LIGHT WITHIN REACH. PT ON THE PHONE WITH HER MOTHER.
--- NOTE | 2020-01-28 18:28 | NUR ---
PATIENT SITTING UP AT DSIDE OF BED, ATE CL LIQUID DIET, NO PROBLEM OR C/O NAUSEA. NEEDS MET. CONT TO MONITOR.
--- NOTE | 2020-01-28 18:58 | NUR ---
PATIENT SLEEPING AT THIS TIME, NO DISTRESS NOTED. FIXED IV BEEPING, CARE ENDORSE TO NEERAJ CARRERO.
--- NOTE | 2020-01-28 19:17 | NUR ---
NURSING CO-SIGN THE DOCUMENTATION ENTERED BY THE RN ADRIA HAS BEEN REVIEWED. REVIEWED/CO-SIGNED BY: Kathy Hernadez DOCUMENTATION DONE BY:RAMON SUAZO
--- NOTE | 2020-01-28 20:02 | NUR ---
PT RECIVED SLEEPING BUT EASILY AROUSABLE,REG RESP NO SOB R/A SAT 97%,ABDO IS SOFT WITH ACTIVE BOWEL SOUNDS,PT HAS HL TO THE RAC SITE PATENT AND INTACT,PT ON TELE MONITOR AND IN NSR NO ECTOPY OR CHEST PAIN AT THIS TIME,BED IN THE LOW POSITION AND LOCKED,CALL LIGHT EASY REACHED AND WILL CONTINUE TO MONITOR.
--- NOTE | 2020-01-28 21:53 | NUR ---
PT HAD EPISODE OF NAUSEA NO VOMITING BUT SPITTING OUT DRY SECRAETION,PT WAS GIVEN ZOFRAN 4 MG IV ORDER AND WILL CONTINUE TO MONITOR.
--- NOTE | 2020-01-28 22:00 | NUR ---
PT MOM CALL WATED TO KNOW HOW PATIENT WAS DOING,CALL RETURN BUT NO RESPONSE,PT RESTING AT THIS TIME,WILL CONTINUE TO MONITOR.
[2020-01-28 22:23] VITALS: BP 180/82
[2020-01-29] VITALS (7 sets, daily range): BP systolic 127–207; BP diastolic 53–170
--- NOTE | 2020-01-29 04:34 | NUR ---
PT HAD DRY HEAVES PT WAS GIVEN ZOFRAN 4 MG IV ORDER AND WILL CONTINUE TO MONITOR.
--- NOTE | 2020-01-29 06:32 | NUR ---
PT HAD A RESTING NIGHT NO CHANGE AT THIS TIME,WILL CONTINUE TO MONITOR
--- NOTE | 2020-01-29 07:30 | NUR ---
RECEIVED PT FROM NIGHT RN. PT AAOX4. PT ON TELE #47. DENIES CHEST PAIN. PT ON 2L NC. NO SOB OR DISTRESS NOTED AT THIS TIME. IV TO RAC 20G D5 1/2 NS @100ML/HR. IV CDI AND PATENT. ALL COMFORT AND SAFETY MEASURES IN PLACE AT THIS TIME. BED IN LOW POSITION, 2 SIDE RAILS UP. CALL LIGHT WITH IN REACH. ALL QUESTIONS AND CONCERNS ADDRESSED. WILL CONTINUE TO MONITOR PT.
[2020-01-29 07:35] LABS: BILIRUBIN TOTAL 0.5 mg/dL (0.20-1.00); CALCIUM 8.3 mg/dL (8.5-10.1); CARBON DIOXIDE 23.6 mmol/L (21-32); CREATININE SERUM 2.6 mg/dL (0.6-1.0); MAGNESIUM 1.9 mg/dL (1.8-2.4); POTASSIUM SERUM 4.9 mmol/L (3.5-5.1); TOTAL PROTEIN, SERUM 6.9 g/dL (6.4-8.2)
[2020-01-29 07:36] LABS: ALBUMIN 3.1 g/dL (3.4-5.0)
--- NOTE | 2020-01-29 08:10 | NUR ---
DR FLOYD PAGED AT THIS TIME. AWAITING CALL BACK.
[2020-01-29 10:35] LABS: BASOPHIL % 0.7 % (0-2); PLATELET COUNT 339 x10^3mcL (130-400)
--- NOTE | 2020-01-29 12:10 | NUR ---
IN TO SEE PT. PT REMAINS STABLE AT THIS. PT C/O ABD PAIN 10/04. PRN PAIN MEDICATION GIVEN. ALL QUESTIONS AND CONCERNS ADDRESSED. WILL CONTINUE TO MONITOR PT.
--- NOTE | 2020-01-29 14:50 | NUR ---
PT C/O N/V. PT GIVEN PRN ZOFRAN PER EMAR. ALL QUESTIONS AND CONCERNS ADDRESSED. WILL CONTINUE TO MONITOR PT.
--- NOTE | 2020-01-29 16:18 | NUR ---
DR FLOYD MADE AWARE OF PT COVID PCR RESULTS BEING NEGATIVE. DR FLOYD GAVE TELEPHONE READBACK ORDER TO D/C ISOLATION AND FOR PT TO BE NPO @ MIDNIGHT. ORDER CONFIRMED AND READBACK. ALL QUESTIONS AND CONCERNS ADDRESSED. WILL CONTINUE TO MONITOR PT.
--- NOTE | 2020-01-29 18:30 | NUR ---
REPORT GIVEN TO CASANDRA CARRERO. PT REMAINS STABLE W/ AGUSTIN CUTE CHANGES TO STATUS AT THIS TIME. ALL QUESTIONS AND CONCERNS ADDRESSED. ALL CARES ENDORSED.
--- NOTE | 2020-01-29 18:50 | NUR ---
RECIEVED PATIENT FROM NURSE JODI FROM [facility]. PATIENT TRANSFERRED HERE TO [address] [place] [address] IN ROOM 240 A DUE TO NEGATIVE PCR. PATIENT SCHEDULED FOR LAP RAMÍREZ TOMORROW IN THE AM. PATIENT TO REMAIN NPO AT MIDNGIHT. NO REPORT OF PAIN AT THIS TIME. WILL ENDORSE ALL FURTHER CARE TO THE NOC NURSE.
--- NOTE | 2020-01-29 19:30 | NUR ---
PT RECIEVED FROM DAY NURSE. PT RESTING AT SIDE OF BED AT THIS TIME. STATES PAIN AND DISCOMFORT TO UPPER RIGHT QUADRANT. WILL MEDICATED PT PER MAR. 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 TELE 47, NSR. DENIES CP, NV, DIZZINESS, AND PALPATIONS. PALPABLE PULSES, NO EDEMA NOTED AT THIS TIME. BREATHING E/U ON RA. DENIES SOB AT THIS TIME. SPO2 94% ABD SOFT AND FLAT. PT COMPLAINING OF N/V. L FOOT AMPUTATION NOTED. PT AMBULATORY AT BASELINE. IV TO RH, CDI AND INFUSING. BED AT LOWEST POSITION. CALL LIGHT WITHIN REACH. WILL CONTINUE TO MONITOR.
--- NOTE | 2020-01-29 20:05 | NUR ---
PT COMPLAINING OF 8/10 ACHING PAIN TO UPPER R QUADRANT. MEDICATED PT WITH PRN DILAUDID PER APR. PT BP 175/73 AT THIS TIME. WILL CONTINUE TO MONITOR.
--- NOTE | 2020-01-29 22:30 | NUR ---
PT COMPLAINING OF N/V MEDICATED WITH PRN ZOFRAN. WILL CONTINUE TO MONITOR.
[2020-01-30] VITALS (7 sets, daily range): BP systolic 127–205; BP diastolic 59–87
--- NOTE | 2020-01-30 00:58 | NUR ---
PT RESTING IN BED AT THIS TIME. DENIES PAIN OR DISCOMFORT. PT BREATHING E/U ON RA. NO S/S OF ACUTE DISTRESS NOTED AT THIS TIME. WILL CONTINUE TO MONITOR.
--- NOTE | 2020-01-30 06:37 | NUR ---
PT RESTING IN BED AT THIS TIME. DENIES PAIN OR DISCOMFORT. PT BREATHING E/U ON RA. NO S/S OF ACUTE DISTRESS NOTED. ALL NEEDS AND CONCERNS ADDRESSED. WILL ENDORSE TO DAY NURSE.
--- NOTE | 2020-01-30 07:32 | NUR ---
RECIEVED REPORT FROM [facility] NURSE. PATIENT IS CURRENTLY OBSERVED RESTING IN BED. RESPIRATIONS EQUAL AND UNLABORED WITH SYMMETRICAL CHEST RISE AND FALL. PATIENT IS RECIEVING D5 1/2 NS AT 100cc/HOUR TO THE RIGHT HAND. PATIENT HAS BEEN NPO SINCE MIDNIGHT IN PREPARATION FOR POSSIBLE LAP RAMÍREZ. NO SIGNIFICANT EVENTS REPORTED OVER NIGHT. NO SIGNS OR SYMPTOMS OF DISTRESS. SAFETY PRECAUTIONS IN PLACE. CALL LIGHT WITHIN REACH. WILL CONTINUE TO PROVIDE CARE FOR PATIENT.
[2020-01-30 10:27] LABS: ALBUMIN 2.8 g/dL (3.4-5.0); BILIRUBIN TOTAL 0.4 mg/dL (0.20-1.00); CALCIUM 8.1 mg/dL (8.5-10.1); CARBON DIOXIDE 22.3 mmol/L (21-32); CREATININE SERUM 2.6 mg/dL (0.6-1.0); MAGNESIUM 1.8 mg/dL (1.8-2.4); POTASSIUM SERUM 4.2 mmol/L (3.5-5.1); TOTAL PROTEIN, SERUM 6.2 g/dL (6.4-8.2)
[2020-01-30 10:52] LABS: BASOPHIL % 0.5 % (0-2); PLATELET COUNT 289 x10^3mcL (130-400)
[2020-01-30 11:15] LABS: RED CELL DISTRIBUTION WIDTH 16.7 % (11.5-14.5)
--- NOTE | 2020-01-30 13:00 | NUR ---
PATIENT PLACED ON 2 LITER NASAL CANNULA BY RESPIRATORY THERAPIST VICENTE. OXYGEN SATURATION 95% ON 2 LITER.
--- NOTE | 2020-01-30 16:02 | NUR ---
PATIENT RETRIEVED FOR SURGICAL LAP RAMÍREZ PROCEDURE.
--- NOTE | 2020-01-30 19:00 | NUR ---
PATIENT RETURNED FROM OR AFTER LAP RAMÍREZ PROCEDURE. PATIENT HAS 4 INCISIONS COVERED WITH DERMABOND. PATIENT UNDERWENT GENERAL ANESTHESIA THROUGHOUT PROCEDURE. EBL OF 30cc PER OR NURSE. PATIENT CURRENTLY ON 2 LITER NASAL CANNUL AND IS AWAKE ALERT AND ORIENTED X 4. PATIENT DROWSY, BUT OTHERWISE WELL. WILL ENDORSE ALL FURTHER CARE TO NOC NURSE.
--- NOTE | 2020-01-30 19:30 | NUR ---
PT RECIEVED FROM DAY NURSE. PT RESTING IN BED AT THIS TIME. DENIES PAIN OR DISCOMFORT. PT BREATHING E/U ON 2L NC. DENIES SOB. SPO2 95%. PT A/OX4, CALM AND COOPERATIVE AT THIS TIME. 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 TELE 47, NSR. DENIES CP, NV, DIZZINESS, OR PALPLATIONS AT THIS TIME. PALPABLE PULSES, NO EDEMA NOTED AT THIS TIME. ABD SOFT AND FLAT, PT S/P LAP RAMÍREZ. 4 INCISIONS NOTED. COVERED WITH DERMABOND. CDI. PT L LEG AMPUTEE. L LEG BOOT AT BEDSIDE. IV TO RH. CDI. BED AT LOWEST POSITION. CALL LIGHT WITHIN REACH. WILL CONTINUE TO MONITOR.
--- NOTE | 2020-01-30 22:25 | NUR ---
BP RECHECKED AT THIS TIME. 150/87. PT RESTING IN BED. NO S/S OF ACUTE DISTRESS NOTED. WILL CONTINUE TO MONITOR.
[2020-01-31 05:56] VITALS: BP 145/76
--- NOTE | 2020-01-31 06:48 | NUR ---
PT RESTING IN BED AT THIS TIME. DENIES PAIN OR DISCOMFORT. PT BREATHING E/U ON RA. NO S/S OF ACUTE DISTRESS NOTED AT THIS TIME. ALL NEED AND CONCERNS ADDRESSED. WILL CONTINUE TO MONITOR .
--- NOTE | 2020-01-31 07:53 | NUR ---
RECIEVED PT FROM PREVIOUS SHIFT NURSE. PT RESTING COMFORTABLY IN BED, EASILY AROUSABLE, AOX4, C/O ABD PAIN WILL MEDICATE PER EMAR, SPEECH CLEAR, DENIES GOLDSTEIN,N/V,DIZZINESS, AND NO FACIAL DROOPING NOTED. RR EVEN AND UNLABORED ON 2L/NC, CHEST RISING EQUALLY, DENIES SOB/DIFFICULTY BREATHING, NO COUGH NOTED. TELE #47 NSR, DENIES CHEST PAIN/PRESSURE/PALPITATIONS. IV NOTED TO RFA WNL/PATENT, D5NS RUNNING AT 100ML/HR. 4 SXI NOTED TO ABD HELD W/ DERMABOND, NO S&S OF INFECTION. AMPUTATION NOTED TO LLE. PT ENCOURAGED TO USE IS AND AMBULATE. NO SIGNS OF ACUTE CHANGE OR DISTRESS NOTED. BED IN LOWEST POSITION, SIDE RAILS UP X2, AND CALL LIGHT WITHIN REACH. WILL CONTINUE TO MONITOR.
[2020-01-31 08:08] VITALS: BP 160/64
[2020-01-31 08:13] LABS: BILIRUBIN TOTAL 0.5 mg/dL (0.20-1.00); CARBON DIOXIDE 22.8 mmol/L (21-32); CREATININE SERUM 2.4 mg/dL (0.6-1.0); MAGNESIUM 1.8 mg/dL (1.8-2.4); POTASSIUM SERUM 4.6 mmol/L (3.5-5.1); TOTAL PROTEIN, SERUM 6.4 g/dL (6.4-8.2)
[2020-01-31 08:15] LABS: ALBUMIN 2.8 g/dL (3.4-5.0)
--- NOTE | 2020-01-31 10:02 | NUR ---
PER DR. PETERSON ADVANCE DIET TO FULL-LIQUID FOR LUNCH, IF PT TOLERATES LUNCH WELL, ADVANCE DIET TO REGULAR DIET. IF PT IS ABLE TO TOLERATE REGULAR DIET, PT MAYBE D/C'D AND FOLLOW-UP OUTPATIENT W/ DR. PETERSON IN 10 DAYS.
[2020-01-31 10:12] LABS: BASOPHIL % 0.1 % (0-2); PLATELET COUNT 293 x10^3mcL (130-400)
[2020-01-31 10:59] LABS: RED CELL DISTRIBUTION WIDTH 17.1 % (11.5-14.5)
--- NOTE | 2020-01-31 12:38 | NUR ---
PT EDUCATED ON THE IMPORTANCE OF USING THE IS S/P LAP RAMÍREZ. WILL CONTINUE TO MONITOR.
[2020-01-31 12:59] VITALS: BP 169/68
[2020-01-31 14:42] VITALS: BP 139/66
--- NOTE | 2020-01-31 15:05 | NUR ---
DISCHARGE ORDERS RECIEVED. DISCHARGE INSTRUCTIONS/EDUCATION DONE. IV D/C'D, BOTH IV CATHETER TIPS IN TACT, TELE RETURNED BACK TO TELE MONITORS.
--- NOTE | 2020-01-31 15:25 | NUR ---
PHOTOS OF 3 SXI INCISION S/P LAP RAMÍREZ TAKEN, PLEASE REFER TO PT'S CHART. PT BEING WHEELED DOWN TO TRANSPORTATION VIA WHEELCHAIR ACCOMPANIED BY DRIVER ENGINEER. NO SIGNS OF ACUTE CHANGE OR DISTRESS NOTED.
== END 2020-01-31 15:23 | disposition home or self-care (01) | DRG 263 ==
LOC: ED 10:51 → DU 14:06
PROVIDERS: Emergency Medicine; Surgery; ADMIT Hospitalist; ATTEND Hospitalist
PROC: 0FT44ZZ Resection of Gallbladder, Percutaneous Endoscopic Approach (ICD-10-PCS; principal; 2020-01-30 16:30)
DX: K80.00 Calculus of gallbladder with acute cholecystitis without obstruction (principal); I21.A1 Myocardial infarction type 2; N17.9 Acute kidney failure, unspecified; E11.22 Type 2 diabetes mellitus with diabetic chronic kidney disease; E11.51 Type 2 diabetes mellitus with diabetic peripheral angiopathy without gangrene; E87.5 Hyperkalemia; Z88.5 Allergy status to narcotic agent; Z90.49 Acquired absence of other specified parts of digestive tract; Z79.4 Long term (current) use of insulin; E78.5 Hyperlipidemia, unspecified; I13.0 Hypertensive heart and chronic kidney disease with heart failure and stage 1 through stage 4 chronic kidney disease, or unspecified chronic kidney disease; N18.9 Chronic kidney disease, unspecified; Z86.711 Personal history of pulmonary embolism; I50.32 Chronic diastolic (congestive) heart failure; Z87.891 Personal history of nicotine dependence; H54.61 Unqualified visual loss, right eye, normal vision left eye; Z83.3 Family history of diabetes mellitus; Z89.432 Acquired absence of left foot; E66.9 Obesity, unspecified; Z68.32 Body mass index [BMI] 32.0-32.9, adult; Z20.828 Contact with and (suspected) exposure to other viral communicable diseases
CPT/HCPCS: 82962; C9113; G0378; J0330; J0360; J1170; J1200; J1815; J1885; J2250; J2270; J2405; J3010; J3490; J7030; J7042; Q9967; U0003

== ENCOUNTER 2020-02-01 10:09 | Inpatient (IN) | payer OTHER ==
[~2020-02-01] VITALS: Ht 162.6 cm; Wt 77.1 kg
[2020-02-01 10:09] VITALS: Ht 162.6 cm; Wt 77.1 kg
[2020-02-01 11:12] LABS: BASOPHIL % 0.3 % (0-2); PLATELET COUNT 342 x10^3mcL (130-400)
[2020-02-01 11:15] LABS: CALCIUM 7.9 mg/dL (8.5-10.1); CARBON DIOXIDE 21.4 mmol/L (21-32); CREATININE SERUM 2.8 mg/dL (0.6-1.0); POTASSIUM SERUM 4.2 mmol/L (3.5-5.1)
[2020-02-01 11:20] LABS: BILIRUBIN TOTAL 0.6 mg/dL (0.20-1.00)
[2020-02-02 06:53] LABS: BASOPHIL % 0.4 % (0-2); PLATELET COUNT 288 x10^3mcL (130-400)
[2020-02-02 07:05] LABS: BILIRUBIN TOTAL 0.38 mg/dL (0.20-1.00); CALCIUM 7.6 mg/dL (8.5-10.1); CARBON DIOXIDE 24.5 mmol/L (21-32); CREATININE SERUM 3.1 mg/dL (0.6-1.0); MAGNESIUM 1.9 mg/dL (1.8-2.4); PHOSPHOROUS 4.3 mg/dL (2.5-4.9); POTASSIUM SERUM 4.3 mmol/L (3.5-5.1)
[2020-02-02 07:08] LABS: ALBUMIN 2.4 g/dL (3.4-5.0); CHOLESTEROL/HDL RATIO 2.9; RED CELL DISTRIBUTION WIDTH 16.7 % (11.5-14.5); TOTAL PROTEIN, SERUM 5.9 g/dL (6.4-8.2)
[2020-02-02] MEDS ORDERED: ULT50 PO (09:45)
[2020-02-02 13:41] LABS: rbc morphology (normal/abnorm) ABNORMAL (NORMAL)
[2020-02-02 19:18] VITALS: BP 157/78
== END 2020-02-02 19:18 | disposition home or self-care (01) | DRG 861 ==
LOC: ED 10:09 → MU 13:08 → DU 13:08 → ED 13:08 → MU 02-02 04:10 → DU 02-02 19:18
PROVIDERS: Emergency Medicine; ADMIT Hospitalist; ATTEND Hospitalist
PROC: 30233N1 Transfusion of Nonautologous Red Blood Cells into Peripheral Vein, Percutaneous Approach (ICD-10-PCS; principal; 2020-02-02)
DX: G89.18 Other acute postprocedural pain (principal); E11.22 Type 2 diabetes mellitus with diabetic chronic kidney disease; E11.51 Type 2 diabetes mellitus with diabetic peripheral angiopathy without gangrene; E78.5 Hyperlipidemia, unspecified; F32.9 Major depressive disorder, single episode, unspecified; I50.32 Chronic diastolic (congestive) heart failure; I13.0 Hypertensive heart and chronic kidney disease with heart failure and stage 1 through stage 4 chronic kidney disease, or unspecified chronic kidney disease; N18.9 Chronic kidney disease, unspecified; N20.0 Calculus of kidney; Z20.828 Contact with and (suspected) exposure to other viral communicable diseases; D50.9 Iron deficiency anemia, unspecified; K57.30 Diverticulosis of large intestine without perforation or abscess without bleeding; E66.9 Obesity, unspecified; Z79.01 Long term (current) use of anticoagulants; Z89.432 Acquired absence of left foot; Z90.49 Acquired absence of other specified parts of digestive tract; Z86.711 Personal history of pulmonary embolism; Z91.19 Patient's noncompliance with other medical treatment and regimen; Z68.32 Body mass index [BMI] 32.0-32.9, adult; Z83.3 Family history of diabetes mellitus
CPT/HCPCS: 82962; G0378; J1644; J2405; J3010; J3490; J7040; P9016

== ENCOUNTER 2020-03-03 13:13 | Emergency (ER) | payer OTHER ==
[~2020-03-03] VITALS: Ht 162.6 cm; Wt 76.7 kg
[~2020-03-03 13:13] MED LIST changes: +ULT50 PO
[2020-03-03 14:00] VITALS: Ht 162.6 cm; Wt 76.7 kg
[2020-03-03 16:15] LABS: PLATELET COUNT 309 x10^3mcL (179-408)
[2020-03-03 16:22] LABS: RED CELL DISTRIBUTION WIDTH 17.7 % (12.3-17.7)
[2020-03-03 16:32] LABS: rbc morphology (normal/abnorm) NORMAL (NORMAL)
[2020-03-03 16:52] VITALS: BP 130/80
== END 2020-03-03 16:52 | disposition home or self-care (01) ==
LOC: ED 13:13
PROVIDERS: Emergency Medicine
DX: D64.9 Anemia, unspecified (principal); I11.0 Hypertensive heart disease with heart failure; I50.9 Heart failure, unspecified; E11.9 Type 2 diabetes mellitus without complications; F10.10 Alcohol abuse, uncomplicated; Z98.890 Other specified postprocedural states; Z89.432 Acquired absence of left foot; Z90.89 Acquired absence of other organs; Z88.5 Allergy status to narcotic agent

== ENCOUNTER 2020-03-05 12:28 | Inpatient (IN) | payer OTHER, SELFPAY ==
[~2020-03-05] VITALS: Ht 162.6 cm; Wt 72.7 kg
[~2020-03-05 12:28] MED LIST changes: -ZOF4 PO
--- NOTE | 2020-03-05 12:36 | NUR ---
PT B[facility] FOR EPIGASTRIC PAIN SINCE LAST NIGHT, HAD CHOLECYSTECTOMY LAST MONTH. +N/V SINCE 1899. HAD COVID TEST LAST MONTH AND WAS NEGATIVE AND NO EXPOSURES. PT IN ED LOBBY AWAITING ED BED.
--- NOTE | 2020-03-05 12:45 | NUR ---
EKG DONE IN TRIAGE BY EMT.
--- NOTE | 2020-03-05 14:30 | NUR ---
PT PRESENTS FOR EPIGASTIC, NAUSEA AND VOMITING. PT REPORTS PAIN BEGAN YESTERDAY WITH NO SPECIFIC PRECIPITATING EVENT. PT YELLING IN PAIN, STATING "I FEEL LIKE IM GOING TO ." PT GUARDING ABDOMEN. AWAKE, ALERT, RESP E/U.
--- NOTE | 2020-03-05 14:45 | NUR ---
PT MEDICATED PER MD ORDER. UPON RECIEVING PAIN MEDICATION, PT IMMEDIATELY STOPPED YELLING IN PAIN. REMAINS AWAKE, ALERT, RESP E/U WITH NAD NOTED.
--- NOTE | 2020-03-05 15:37 | NUR ---
PT CURRENTLY SLEEPING. GOOD CHEST RISE AND FALL NOTED. REMAINS ON FULL CM AND PULSE OX.
[2020-03-05 15:58] LABS: BASOPHIL % 0.4 % (0.2-1.3); PLATELET COUNT 298 x10^3mcL (179-408)
[2020-03-05 16:03] LABS: RED CELL DISTRIBUTION WIDTH 17.5 % (12.3-17.7)
[2020-03-05 16:04] LABS: rbc morphology (normal/abnorm) NORMAL (NORMAL)
[2020-03-05 16:15] LABS: CALCIUM 7.7 mg/dL (8.5-10.1); CARBON DIOXIDE 22.3 mmol/L (21-32); CREATININE SERUM 2.2 mg/dL (0.6-1.0); POTASSIUM SERUM 4.5 mmol/L (3.5-5.1)
[2020-03-05 16:17] LABS: BILIRUBIN TOTAL 0.6 mg/dL (0.20-1.00)
[2020-03-05 16:23] LABS: ALBUMIN 2.8 g/dL (3.4-5.0)
--- NOTE | 2020-03-05 17:44 | NUR ---
PT REPORTING NAUSEA AND EPIGASTRIC PAIN AGAIN. MEDICATED FOR MD ORDER. AWAKE, ALERT, RESP E/U
--- NOTE | 2020-03-05 18:13 | NUR ---
PT SEEN STICKING FINGERS DOWN THROAT AND ATTEMPTING TO MAKE HERSELF VOMIT. INSTRUCTED PT TO STOP. SHE STATED "IT MAKES ME FEEL BETTER." CONTINUING TO REPORT EPIGASTRIC PAIN AND NOW YELLING FROM ROOM. AWARE
--- NOTE | 2020-03-05 18:33 | NUR ---
PT MEDICATED PER MD ORDER. PT APPEARING MORE CALM IMMEDIATELY AFTER ADMIN. PT IS AWAKE, ALERT, RESP E/U. ON FULL CM AND PULSE OX.
--- NOTE | 2020-03-05 19:30 | NUR ---
REPORT FROM ELMER CARRERO
--- NOTE | 2020-03-05 21:25 | NUR ---
PT DRY HEAVING AT BEDSIDE. MEDICATED PT WITH ZOFRAN PRN. PLEASE SEE EMAR. PT REQUESTING MED PAIN. INFORMED PT THERE'S AN ORDER FOR NORCO. PT STS "IM ALLERGIC". WILL CALL RESIDENT RESTAURANT HOURLY MANAGER.
[2020-03-06] VITALS (7 sets, daily range): BP systolic 128–177; BP diastolic 60–91; Ht 162.6 cm; Wt 72.7 kg
--- NOTE | 2020-03-06 00:20 | NUR ---
PT SEEN LYING IN BED, CAME IN DUE TO ABDOMINAL PAIN AND NAUSEA. AAOX4. DENIES HEADACHE/DIZZINESS. RIGHT EYE BLIND AND POOR VISION ON THE LEFT EYE. NO SOB NOTED. ON 2LPM/NC, O2 SAT=97%. LUNG SOUNDS DIMINISHED ON AUSCULTATION. DENIES CHEST PAIN/PRESSURE. DENIES ABDOMINAL PAIN AT THIS TIME, C/O NAUSEA. STATED THAT SHE HAD HARD BLACK STOOLS YESTERDAY. VOIDS. W/ OLD SURGICAL INCISIONS ON THE ABDOMEN, SCABBED OVER. IV SITE PATENT AND INTACT. SIDE RAILS UPX2. CALL LIGHT ON REACH. PRIMARY NURSE GEORGINA AT BEDSIDE FOR CONTINUITY OF CARE
--- NOTE | 2020-03-06 01:19 | NUR ---
RECEIVED PT FROM NAYANA CARRERO. PT AWAKE, RESTING IN BED AT THIS TIME. PT SEEN DRY HEAVING AND "FEELING LIKE THROWING UP". PT IS ABLE TO MAKE NEEDS KNOWN. SPEECH CLEAR. ON TELE#55 READING NSR. RR EVEN AND UNLABORED ON 2L NC SATURATION 97%. NO SIGNS OF RESP DISTRESSNOTED. PT BLIND IN R EYE AND REPORTS SEEING SHADOWS. PULSES PALPABLE. NO EDEMA NOTED. INSERTED BOLTON CATH DRAINING YELLOW URINE BY GRAVITY. NO C/O PAIN OR DISCOMFORT. IV SITE PATENT AND INTACT. SIDE RAILS UPX2. CALL LIGHT ON REACH. WILL CONTINUE TO MONITOR.
--- NOTE | 2020-03-06 02:06 | NUR ---
PAGED DOCTOR ANGLIN FOR NEW ORDERS AT THIS TIME. WAITING FOR CALL BACK.
--- NOTE | 2020-03-06 02:10 | NUR ---
SPOKE WITH REGARDING PTS BLOOD PRESSURE AND ACCU CHECKS. PROVIDED NEW ORDERS AT THIS TIME. SEE EMAR.
--- NOTE | 2020-03-06 07:30 | NUR ---
RECEIVED PATIENT IN BED, AWAKE ALERT AND OREINTED. HL LEFT A/C PATENT. TELE 55 NSR. RESP EVEN AND UNLABORED, ON ROOM AIR. PATIENT C/O EPIGASTRIC PAIN AND CONSTANT NAUSEA. PATIENT HAS AMPUTATED LEFT FOOT. AMBULATES IN ROOM AND TO THE BATHROOM BOLTON CATH DRAINING YELLOW URINE. WILL CONTINUE TO MONITOR.
[2020-03-06 07:44] LABS: BASOPHIL % 0.8 % (0.2-1.3); PLATELET COUNT 301 x10^3mcL (179-408)
[2020-03-06 07:46] LABS: RED CELL DISTRIBUTION WIDTH 17.6 % (12.3-17.7); rbc morphology (normal/abnorm) NORMAL (NORMAL)
--- NOTE | 2020-03-06 07:58 | NUR ---
PT AWAKE RESTING IN BED AT THIS TIME. PT C/O BOLTON CATHETER LEAKING, DEFLATED BALLOON, ADVANCED CATHETER AND REINFLATED BALLOON. REMOVED 600ML YELLOW URINE AT THIS TIME. PT VERBALIZED FEELING BETTER. PT C/O PAIN, DISCUSSED WITH PT THAT IT IS NOT TIME FOR MEDICATION. IV PATENT AND INTACT. PTS BLOOD PRESSURE ELEVATED, MEDICATED PT PER MAR. ALL NEEDS/CONCERNS ADDRESSED THROUGHOUT THE SHIFT. CALL LIGHT WITHIN REACH. CARE ENDORSED TO DAY SHIFT NURSE.
[2020-03-06 09:22] LABS: ALBUMIN 2.7 g/dL (3.4-5.0); BILIRUBIN TOTAL 0.4 mg/dL (0.20-1.00); CALCIUM 7.7 mg/dL (8.5-10.1); CHOLESTEROL/HDL RATIO 3.4; CREATININE SERUM 2.6 mg/dL (0.6-1.0); POTASSIUM SERUM 4.3 mmol/L (3.5-5.1); TOTAL PROTEIN, SERUM 6.6 g/dL (6.4-8.2)
[2020-03-06 14:14] LABS: IRON 32 ug/dL (50-170)
[2020-03-06 14:30] LABS: TOTAL IRON BINDING CAPACITY 390 ug/dL (250-450)
--- NOTE | 2020-03-06 15:28 | NUR ---
ERENDIRA FOUND SITTING UP ON THE SIDE OF THE BED, PUTTING HER FINGERS IN HER MOUTH TO INDUCE VOMITING OVER AND OVER. WHEN PATIENT WAS CONFRONTED AND ASKED TO STOP DOING THAT, SHE KEPT REPEAT,"I HAVE TO."
--- NOTE | 2020-03-06 17:27 | NUR ---
PATIENT'S PLAN OF CARE WAS DISCUSSED AND REVIEWED WITH CHEMISTRY ASSOCIATE:KELL SWANN. I HAVE REVIEWED THE DATA COLLECTION BY CHEMISTRY ASSOCIATE (NAME):KELL SWANN ENTERED ON (DATE/TIME):03/06/20 I CONCUR WITH THE DATA AND ANY EXCEPTIONS OR COMMENTS ARE LISTED BELOW:
[2020-03-06 17:29] LABS: AMPHETAMINE QUAL UR NONE DETECTED (See below)
--- NOTE | 2020-03-06 18:08 | NUR ---
PATIENT REMAINS IN BED, APPEARS MORE CALM AT THIS TIME. PATIENT HAD BEEN GETTING OOB AND WALKING OUT IN THE HALLWAY YELLING FOR NURSE. PATIENT CONTINUES TO PUT HER FINGERS IN HER MOUTH TO INDUCE VOMITING. NO ACUTE DISTRESS NOTED. PATIENT WAS IN BED TALKING ON THE PHONE. WILL CONTINUE TO MONITOR.
--- NOTE | 2020-03-06 20:04 | NUR ---
RECEIVED PT FROM DAY SHIFT NURSE. PT SEEN WALKING INTO HALLWAY REQUESTING MEDICATION, INSTRUCTED PT BACK TO BED AND DISCUSSED WITH PATIENT THAT IT WAS NOT TIME FOR MEDICATION. PT STATED, "I WANT TO , I WANT TO ". PROVIDED PT WITH REASSURANCE AND SNACKS AT THIS TIME. PT A/OX4. ABLE TO MAKE NEEDS KNOWN. SPEECH CLEAR. ON TELE#55 READING NSR. PULSES PALPABLE. NO EDEMA NOTED. RR EVEN AND UNLABORED ON RA. NO SIGNS OF RESP DISTRESS OR CHEST PAIN AT THIS TIME. BOLTON CATH IN PLACE DRAINING YELLOW URIN. PT C/O ABD PAIN AND ACID REFLUX, WILL MEDICATE PER APR. PT HAS L FOOT AMPUTATION AND OLD SURGICAL INCISION TO ABD. IV TO LAC PATENT AND INTACT. NO SIGNS OF INFILTRATION NOTED. CALL LIGHT WITHIN REACH. BED IN LOWEST POSITION. WILL CONTINUE TO MONITOR.
--- NOTE | 2020-03-06 22:08 | NUR ---
PT SEEN WITH FINGERS IN MOUTH TRYING TO VOMIT, PT STATES "IT MAKES ME FEEL BETTER". INSTRUCTED PT THAT IT IS UNSAFE AND TO REMOVE FINGERS FROM MOUTH. EDUCATED PT REGARDING SELF INDUCED VOMITTING, PT VERBALIZED UNDERSTANDING. WILL CONTINUE TO MONITOR.
--- NOTE | 2020-03-07 00:54 | NUR ---
PT RESTING COMFORTABLY IN BED AT THIS TIME. NO SIGNS OF ACUTE DISTRESS NOTED. RR EVEN AND UNLABORED ON RA. NO C/O PAIN AT THIS TIME. WILL CONTINUE TO MONITOR.
[2020-03-07 06:09] VITALS: BP 131/105
--- NOTE | 2020-03-07 06:53 | NUR ---
PT SEEN PACING ROOM AT THIS TIME. REQUESTING TO SPEAK WITH DOCTOR, DISCUSSED WITH PATIENT THAT DOCTORS WILL MAKE ROUNDS THIS AM. PT REPORTED PAIN AT THIS TIME. REDIRECTED PT BACK TO BED. ALL NEEDS/CONCERNS ADDRESSED THROUGHOUT THE SHIFT. WILL ENDORSE CARE TO ONCOMING SHIFT NURSE.
--- NOTE | 2020-03-07 08:27 | NUR ---
RECEIVED PT FROM NIGHT NURSE. AAOX4. AMBULATORY. BOLTON CATHETER IN PLACE. C/O BURNING PAIN 10/04 FROM INDIGESTION. WILL GIVE PEPCID IVP ORDERED. NO ACUTE DISTRESS AT THIS TIME. WILL CONTINUE TO MONITOR.
[2020-03-07 08:39] LABS: BASOPHIL % 0.7 % (0.2-1.3); PLATELET COUNT 397 x10^3mcL (179-408)
[2020-03-07 08:49] VITALS: BP 161/83
[2020-03-07 08:57] LABS: BILIRUBIN TOTAL 0.6 mg/dL (0.20-1.00); CALCIUM 8.5 mg/dL (8.5-10.1); CARBON DIOXIDE 21.6 mmol/L (21-32); CREATININE SERUM 2.9 mg/dL (0.6-1.0); MAGNESIUM 1.9 mg/dL (1.8-2.4); POTASSIUM SERUM 3.7 mmol/L (3.5-5.1); TOTAL PROTEIN, SERUM 7.6 g/dL (6.4-8.2)
[2020-03-07 08:59] LABS: ALBUMIN 3.2 g/dL (3.4-5.0)
[2020-03-07 09:41] LABS: RED CELL DISTRIBUTION WIDTH 17.7 % (12.3-17.7)
[2020-03-07 12:23] VITALS: BP 138/68
[2020-03-07 14:57] LABS: rbc morphology (normal/abnorm) ABNORMAL (NORMAL)
[2020-03-07 16:17] VITALS: BP 164/78
--- NOTE | 2020-03-07 19:30 | NUR ---
RECEIVED PT FROM DAY SHIFT NURSE FOR CONTINUITY OF CARE. PT AO X4, FOLLOWS COMMANDS, ABLE TO MAKE NEEDS KNOWN, NO C/O GOLDSTEIN. PT BREATHING E/U, NO ACUTE DISTRESS OR SOB NOTED. HEALTH EDUCATION ASSISTANT C/O CHEST PAIN AT THIS TIME. PT REPORTED TO HAVE LBM ON 03/05 WITH BLACK HARD STOOL. PT C/O INDIGESTION, ABDOMEN ROUND AND SOFT. PT ON F/C, INTACT AD PATENT, URINE CLEAR AND YELLOW. IV SITE PATENT ON LH, DRESSING CDI, SALINE LOCK. PT SAFETY IN CHECK, BED LOCKED AND IN LOWEST POSITION, CALL LIGHT WITHIN REACH. WILL CONT TO MONITOR.
--- NOTE | 2020-03-07 19:30 | NUR ---
PT SPOKE WITH MD AND ASKED FOR RX FOR EPIGASTRIC BURNING AND PAIN. HE DID NOT GIVE ANESTHETIC PAIN MEDICATION BUT ONLY ONE TIME DOSES OF PROTONIX AND MAALOX. ORDERED DC OF HOANG. THIS WAS ENDORSED TO NIGHT NURSE ALONG WITH CARE. PT STABLE AND FREE OF ACUTE DISTRESS. URINE OUTPUT WNL. 93% SAO2 ON ROOM AIR. ENDORSED CARE TO NIGHT NURSE.
[2020-03-07 21:07] VITALS: BP 145/67
--- NOTE | 2020-03-08 01:55 | NUR ---
REMOVED PT F/C PER MD ORDER. F/C INTACT, PT TOLERATED WELL. WILL CONT TO MONITOR.
--- NOTE | 2020-03-08 02:56 | NUR ---
PT STABLE, RESTING IN BED WITH EYES CLOSED. NO S/S OF PAIN OR FACIAL GRIMMACING NOTED. ALL SAFETY MEASURES IN CHECK, BED LOCKED IN LOWEST POSITION, CALL LIGHT WITHIN REACH. WILL CONT TO MONITOR.
--- NOTE | 2020-03-08 04:57 | NUR ---
PT REMAINS SLEEPING IN BED. NO S/S OF PAIN, FACIAL GRIMMACING NOTED. NO RESP DISTRESS OR SOB NOTED NO C/O CHEST PAIN. ALL SAFETY MEASURES IN CHECK, BED LOCKED IN LOWEST POSITION, CALL LIGHT WITHIN REACH. WILL CONTINUE TO MONITOR. WILL ENDORSE TO INCOMING NURSE FOR CONTIUITY OF CARE.
[2020-03-08 06:40] VITALS: BP 139/69
--- NOTE | 2020-03-08 07:10 | NUR ---
RECEIVED PATIENT FROM PM NURSE, ALERT AND ORIENTED X 4, ABLE TO VERBALIZE NEEDS, LUNG SOUNDS CLEAR ,L FOOT AMPUTATION, GENERALIZED WEAKNESS, ON TELEMETRY, C/O INTERMITTENT EPIGASTRIC PAIN BOWEL SOUNDS ACTIVE, SKIN INTACT, PEDAL PULSES PRESENT, NON PITTING EDEMA IN BUE AND BLE, PATIENT ANXIOUS
[2020-03-08 08:24] LABS: BASOPHIL % 1.2 % (0.2-1.3); PLATELET COUNT 305 x10^3mcL (179-408)
[2020-03-08 08:41] VITALS: BP 128/60
[2020-03-08 08:44] LABS: RED CELL DISTRIBUTION WIDTH 17.5 % (12.3-17.7)
[2020-03-08 08:49] LABS: BILIRUBIN TOTAL 0.38 mg/dL (0.20-1.00); CARBON DIOXIDE 24.6 mmol/L (21-32); CREATININE SERUM 3.1 mg/dL (0.6-1.0); MAGNESIUM 2.2 mg/dL (1.8-2.4); POTASSIUM SERUM 3.7 mmol/L (3.5-5.1); TOTAL PROTEIN, SERUM 6.2 g/dL (6.4-8.2)
[2020-03-08 09:12] LABS: ALBUMIN 2.6 g/dL (3.4-5.0)
--- NOTE | 2020-03-08 09:30 | NUR ---
NEW IV STARTED IN LFA, 22G PATIENT TOLERATED WELL
[2020-03-08 11:45] LABS: rbc morphology (normal/abnorm) NORMAL (NORMAL)
--- NOTE | 2020-03-08 13:11 | NUR ---
PATIENT C/O 610 PAIN IN ABDOMEN,TRAMADOL ADMINISTERED PER EMAR
--- NOTE | 2020-03-08 19:04 | NUR ---
PATIENT RESTING COMFROTABLY IN BED, NO C/O PAIN OR DISCOMFORT AT THIS TIME, WILL ENDORSE CARE TO PM NURSE
--- NOTE | 2020-03-08 19:30 | NUR ---
Pt. received from day shift for continuity of care. Pt. is a/o x4, follows commands, able to follow commands. Pt. NSR, no c/o chest pain or pain. Pt. is resting at this time w/o s/o acute distress or SOB on RA. Pt. on heparin for prophylaxis, pt. LBM on 03/05, has mylanta and protonix, has hx of indigestion, pt. at times refuses medications states that it is normal for her at htis time. Pt. BRP, voids w/o assistance. Pt. has old surgical incision, and L foot amputation, pt. LFA 20g patent adn dressing CDI, educated pt. on need of IV as pt. refused IV reinsertion for yesterdays rag inspector as per report. Otherwise, pt. moderately stable, no acute distress, pt. safety in check w/ call light placed wtihin reach, will cont. to monitor.
[2020-03-08 21:46] VITALS: BP 112/58
[2020-03-09 06:34] VITALS: BP 108/58
--- NOTE | 2020-03-09 06:46 | NUR ---
Pt. remained moderately stable, took all medications throughout the night. given Ultram x1 as pt. c/o of pain. Otherwise, pt. no acute changes, still on RA, IV site patent and dressing CDI, will cont. to monitor and endorse to next shift RN.
[2020-03-09 08:21] LABS: PLATELET COUNT 301 x10^3mcL (179-408)
[2020-03-09 08:45] LABS: BILIRUBIN TOTAL 0.27 mg/dL (0.20-1.00); CALCIUM 8.3 mg/dL (8.5-10.1); CARBON DIOXIDE 25.6 mmol/L (21-32); CREATININE SERUM 3.5 mg/dL (0.6-1.0); MAGNESIUM 2.4 mg/dL (1.8-2.4); POTASSIUM SERUM 4.1 mmol/L (3.5-5.1); TOTAL PROTEIN, SERUM 6.5 g/dL (6.4-8.2)
[2020-03-09 08:50] VITALS: BP 147/69
[2020-03-09 09:09] LABS: ALBUMIN 2.8 g/dL (3.4-5.0)
[2020-03-09 09:11] LABS: RED CELL DISTRIBUTION WIDTH 17.8 % (12.3-17.7)
[2020-03-09 12:34] VITALS: BP 122/64
--- NOTE | 2020-03-09 13:00 | NUR ---
CHECKED BS, WAS 290, GAVE 9 UNITS REG INSULIN PER SLIDING SCALE, PT TOELRATED WELL. PT AAOX4, IN A TENSE MOOD, BREATHING EVEN/UNLABORED ON RA. IN NO ACUTE RESP DISTERSS. PT ASKING FOR BANANAS FOR LUNCH. PT REPORTS NO FURTHER CONCERNS AT THIS TIME. BED IN LOWEST POSITION, CALL LIGHT IN REACH.
[2020-03-09 13:11] LABS: rbc morphology (normal/abnorm) ABNORMAL (NORMAL)
[2020-03-09 13:12] LABS: ovalocyte/elliptocyte 1+
[2020-03-09] MEDS ORDERED: CARL PO (15:10)
[2020-03-09 15:49] VITALS: BP 122/64
--- NOTE | 2020-03-09 16:17 | NUR ---
PT AAOX4, TELE #55. LAYING ON L SIDE, BREATHING EVEN UNLABORED ON RA. IN NO ACUTE RESP DISTRESS. PT DEMANDING BANANAS TO EAT, AGITATED. CALLED KITCHEN THEY SAID ALL THEY HAD WERE GREEN BANANAS AND SPOLED ONES. PER PT GREEN BANANAS OKAY, PROVIDED PT WITH SANDWICH. PT REPORTS NO PAIN AT THIS TIME. NO FURTHER CONCERNS VOICED. BED IN LOWEST POSITION, CALL LIGHT IN REACH.
[2020-03-09 17:08] VITALS: BP 126/45
--- NOTE | 2020-03-09 17:40 | NUR ---
PAGED [facility], LEFT A MESSSAGE WITH FLOOR BROKER FOR LEARNING DISABILITIES SPECIALIST INDUSTRY OPERATIONS INVESTIGATOR DR THAT DISCHARGE ORDER IS IN BUT THERE IS NO DISCAHRGE SUMMARY COMPLETED. AWAITING DISCAHRGE SUMMARY AND/OR CALL BACK.
--- NOTE | 2020-03-09 17:57 | NUR ---
SPOKE WITH DR. GUAMAN ON THE PHONE ABOUT MISSING DISCHARGE SUMMARY IN PT'S CHART. ACCORDING TO DR. GUAMAN, DRS DO NOT HAVE TO PUT IN A DISCHARGE SUMMARY, DRS DO NOT HAVE THE TIME. CONFIRMED WITH DR. GUAMAN THAT HE DOES NOT WANT TO INPUT A DISCHARGE SUMMARY AND TO GO AHEAD WITH THE DISCHARGE. WILL COMPILE D/C PAPERWORK AND CONT TO MONITOR.
[2020-03-09] MEDS ORDERED: ZOF4 PO (18:12)
--- NOTE | 2020-03-09 18:38 | NUR ---
reviewed d/c paperwork with pt, went over meds, activity, when to follow up with dr. pt verbalized understanding. tele monitor returned back to ekg monitor tech. iv d/c'd, pt to go home with all belongings, pt awaiting ride home from mother.
== END 2020-03-09 18:53 | disposition home or self-care (01) | DRG 251 ==
LOC: ED 12:28 → DU 19:01
PROVIDERS: Emergency Medicine; ADMIT Hospitalist; ATTEND Hospitalist
DX: R10.9 Unspecified abdominal pain (principal); E11.22 Type 2 diabetes mellitus with diabetic chronic kidney disease; I13.0 Hypertensive heart and chronic kidney disease with heart failure and stage 1 through stage 4 chronic kidney disease, or unspecified chronic kidney disease; I50.9 Heart failure, unspecified; N18.4 Chronic kidney disease, stage 4 (severe); Z20.822 Contact with and (suspected) exposure to COVID-19; Z88.5 Allergy status to narcotic agent; Z88.8 Allergy status to other drugs, medicaments and biological substances; Z83.3 Family history of diabetes mellitus; D64.9 Anemia, unspecified
CPT/HCPCS: 82962; 83880; C9113; G0378; J1170; J1644; J1940; J2405; J2765; J3010; J3490; J7030